=== PATIENT | male | born 1965 | race African-American/Black ===

== ENCOUNTER 2024-06-18 09:28 | Inpatient (IN) | payer MEDICAID, OTHER ==
[~2024-06-18] VITALS: Ht 177.8 cm; Wt 147.6 kg
[2024-06-18 09:59] LABS: White Blood Cell 4.2 10^3/uL (4.4-10.8)
[2024-06-18 10:01] LABS: Hematocrit 42.2 % (41.0-53.0); Hemoglobin 14.1 g/dL (13.5-17.5); Mean Corpuscular Hemoglobin 34.8 pg (28.0-32.0); Mean Corpuscular Hgb Conc. 33.3 g/dL (32.0-36.0); Mean Corpuscular Volume 104.5 fL (80.0-100.0); Platelet Count (auto) 174 10^3/uL (140-450); Red Blood Cells 4.04 10^6/uL (4.5-5.90); Red Cell Distribution Width 15.2 % (11.8-14.3)
--- NOTE | 2024-06-18 10:03 | ED.PDOC ---
HPI Comments 58-year-old male with PMHx Pulmonary Emboli presents with a chief complaint of chest pain x onset 0845 this morning. Patient reports that his chest pain is localized to his sternal region, radiating to his lower jaw. Patient reports that he is on blood thinners for pulmonary emboli. Patient reports that he also feels very hot; patient is visibly sweating upon evaluation. Patient denies any drug or alcohol use this morning. Chief Complaint: Chest Pain Time Seen by MD: 09:47 Reviewed Notes: Medications, Allergies Allergies: Coded Allergies: Ibuprofen (Verified Allergy, Unknown, 06/18/24) Penicillins (Verified Allergy, Unknown, 06/18/24) Information Source: Patient Mode of Arrival: Ambulatory Severity: Moderate Timing: Hours Duration: Since onset Prehospital treatment: None Location: Substernal Radiation: Jaw Quality: Sharp Onset: With Light Exertion Cardiac Risk Factors: Other (PULMONARY EMBOLI) PE Risk Factors: None History of: None Past Medical History PAST MEDICAL HISTORY: PE Surgical History: Denies all surgeries Family History Family History: Reviewed,noncontributory to illness Social History Smoker: Non-Smoker Alcohol: Denies ETOH Use Drugs: Denies Drug Use Lives In: Home Constitutional: reports: diaphoresis; denies: chills, fatigue, fever, malaise, sweats, weakness, others EENTM: denies: blurred vision, double vision, ear bleeding, ear discharge, ear drainage, ear pain, ear ringing, eye pain, eye redness, hearing loss, mouth pain, mouth swelling, nasal discharge, nose bleeding, nose congestion, nose pain, photophobia, tearing, throat pain, throat swelling, voice changes, others Respiratory: reports: shortness of breath; denies: cough, hemoptysis, orthopnea, SOB at rest, SOB with excertion, stridor, wheezing, others Cardiovascular: reports: chest pain; denies: dizzy spells, diaphoresis, Dyspnea on exertion, edema, irregular heart beat, left arm pain, lightheadedness, palpitations, PND, syncope, others Gastrointestinal: denies: abdomen distended, abdominal pain, blood streaked bowels, constipated, diarrhea, dysphagia, difficulty swallowing, hematemesis, melena, nausea, poor appetite, poor fluid intake, rectal bleeding, rectal pain, vomiting, others Genitourinary: denies: burning, dysuria, flank pain, frequency, hematuria, incontinence, penile discharge, penile sore, pain, testicle pain, testicle swelling, urgency, others Neurological: reports: tingling; denies: dizziness, fainting, headache, left sided numbness, left sided weakness, numbness, paresthesia, pre-existing deficit, right sided numbness, right sided weakness, seizure, speech problems, tremors, weakness, others Musculoskeletal: denies: back pain, gout, joint pain, joint swelling, muscle pain, muscle stiffness, neck pain, others Integumetry: denies: bruises, change in color, change in hair/nails, dryness, laceration, lesions, lumps, rash, wounds, others Allergic/Immunocompromised: denies: Difficulty Healing, Frequent Infections, Hives, Itching, others Hematologic/Lymphatic: denies: anemia, blood clots, easy bleeding, easy bruising, swollen glands, others Endocrine: denies: excessive hunger, excessive sweating, excessive thirst, excessive urination, flushing, intolerance to cold, intolerance to heat, unexplained weight gain, unexplained weight loss, others Psychiatric: denies: anxiety, bipolar disorder, depression, hopeless, panic disorder, schizophrenia, sleepless, suicidal, others All Other Systems: Reviewed and Negative Physical Exam General Appearance: Moderate Distress, Obese HEENT: Normal ENT Inspection, Pharynx Normal, TMs Normal Neck: Full Range of Motion, Non-Tender, Normal, Normal Inspection Respiratory: Chest Non-Tender, Lungs Clear, No Accessory Muscle Use, No Respiratory Distress, Normal Breath Sounds Cardiovascular: No Edema, No JVD, No Murmur, No Gallop, Normal Peripheral Pulses, Other (STERNAL CHEST PAIN) Breast Exam: Deferred Gastrointestinal: No Organomegaly, Non Tender, No Pulsatile Mass, Normal Bowel Sounds, Soft Genitalia: Deferred Pelvic: Deferred Rectal: Deferred Extremities: No calf tenderness, Normal capillary refill, Normal inspection, Normal range of motion, Non-tender, No pedal edema Musculoskeletal : Apperance: Normal Neurologic: Alert, 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 Was a procedure done?: No CP Differential Dx Differential Diagnosis: Anxiety / Panic Attack, Electrolyte Disorder, Heart Failure, Hypoxia, MAT, NE, PAC's, Pulmonary Embolus Differential Diagnosis: HTN Essential, HTN Accelerated Differential Diagnosis: Gastritis, Myocardial Infarction, Pericarditis X-Ray, Labs, Meds, VS Vital Signs Date Time Temp Pulse Resp B/P (MAP) Pulse Ox O2 Delivery O2 Flow Rate FiO2 06/18/24 12:25 67 06/18/24 12:00 68 20 131/88 (102) 95 06/18/24 11:07 67 15 131/91 06/18/24 10:38 71 14 140/85 06/18/24 10:28 67 06/18/24 10:23 98.6 71 20 149/85 (106) 96 98.6 06/18/24 10:20 96 Room Air* 0 21 06/18/24 10:10 72 20 96 Room Air 06/18/24 10:10 98.4 72 20 133/87 (102) 96 98.4 06/18/24 09:28 97.7 74 20 164/99 (120) 96 Lab Test 06/18/24 12:46 06/18/24 10:41 06/18/24 09:40 Range/Units Sodium Level Pending Potassium Level Pending Chloride Level Pending Carbon Dioxide Level Pending Anion Gap Pending Blood Urea Nitrogen Pending Creatinine Pending Glomerular Filtration Rate Calc Pending BUN/Creatinine Ratio Pending Serum Glucose Pending Calcium Level Pending Troponin I High Sensitivity Pending < 3 L < 3 L </=54 ng/L White Blood Count 4.2 L 4.4-10.8 10^3/uL Red Blood Count 4.04 L 4.5-5.90 10^6/uL Hemoglobin 14.1 13.5-17.5 g/dL Hematocrit 42.2 41.0-53.0 % Mean Corpuscular Volume 104.5 H 80.0-100.0 fL Mean Corpuscular Hemoglobin 34.8 H 28.0-32.0 pg Mean Corpuscular Hemoglobin Concent 33.3 32.0-36.0 g/dL Red Cell Distribution Width 15.2 H 11.8-14.3 % Platelet Count 174 140-450 10^3/uL Mean Platelet Volume 7.8 6.9-10.8 fL Neutrophils (%) (Auto) 37.0-80.0 % Lymphocytes (%) (Auto) 10.0-50.0 % Monocytes (%) (Auto) 0.0-12.0 % Basophils (%) (Auto) 0.0-2.0 % Neutrophils # (Auto) 1.6-8.6 10 ^3/uL Lymphocytes # (Auto) 0.4-5.4 10 ^3/uL Monocytes # (Auto) 0-1.3 10 ^3/uL Differential Total Cells Counted Pending Neutrophils % (Manual) Pending Band Neutrophils % (Manual) Pending Lymphocytes % (Manual) Pending Monocytes % (Manual) Pending Eosinophils % (Manual) Pending Basophils % (Manual) Pending Metamyelocytes % (manual) Pending Myelocytes % (Manual) Pending Promyelocytes % (Manual) Pending Blast Cells % (Manual) Pending Reactive Lymphocytes Pending Platelet Estimate Pending D-Dimer, Quantitative 0.22 0.0-0.49 mg/L FEU B-Type Natriuretic Peptide 28.59 0-100 pg/mL Current Medications Medications (Trade) Dose Ordered Sig/Carlos Route Start Time Stop Time Status Last Admin Ondansetron HCl (Zofran) 4 mg ONCE ONCE IV 06/18/24 10:30 06/18/24 10:31 DC 06/18/24 10:38 Morphine Sulfate 4 mg ONCE ONCE IV 06/18/24 10:30 06/18/24 10:31 DC 06/18/24 10:38 Time of 1ST Reevaluation: 10:17 Reevaluation 1ST: Unchanged Patient Education/Counseling: Diagnosis, Treatment, Prognosis Family Education/Counseling: Diagnosis, Treatment, Prognosis Departure 1 Departure Time of Disposition: 12:51 (Patient presented with chest pain that was concerning for possible STEMI, ACS, PE, Pneumonia, Muscle Strain, COPD, Dissection. Data: 1. I ordered and reviewed the result of at least 3 labs including a CBC, BMP, and Troponin. 2. I independently interpreted the following tests: EKG which shows sinus arrhythmia and Chest X-ray which shows benign chest.Risk:This patient has a high risk of morbidity due to further diagnostic testing or treatment and may suffer from an acute cardiac or respiratory disorder. Workup reveals concern for ACS and patient should be admitted for further workup and possible expert consultation. ) Impression: Primary Impression: Acute chest pain Additional Impression: Shortness of breath Disposition: 09 ADMITTED INPATIENT Admit to: Med Surg Condition: Serious Critical Care Note Critical Care Time?: Yes Critical care comment: Acute chest pain Authorized and Performed by: Gerson Brooks MD Total critical care time: Approximately 38 minutes Due to a high probability of clinically significant, life threatening deterioration, the patient required my highest level of preparedness to intervene emergently and I personally spent this critical care time directly and personally managing the patient. This critical care time included obtaining a history; examining the patient; pulse oximetry; ordering and review of studies; arranging urgent treatment with development of a management plan; evaluation of patient's response to treatment; frequent reassessment; and, discussions with other providers. This critical care time was performed to assess and manage the high probability of imminent, life-threatening deterioration that could result in multi-organ failure. It was exclusive of separately billable procedures and treating other patients and teaching time. Please see my other sections and the rest of the note for further information on patient assessment and treatment. Stability Stability form required: No Heart Score Heart Score: Heart Score Response (Comments) Value History Moderate Suspicious 1 EKG Repolarization Disturb 1 Age 45-64 1 Risk Factors >3 or Hx ASHD 2 Troponin 1-2 x's Normal limit 1 Total 6 I personally scribed for GERSON BROOKS MD ([email or web address]) on 06/18/24 at 10:03. Electronically submitted by Aron Mazariegos ([email or web address]). GERSON BROOKS MD Jun 18, 2024 10:03
[2024-06-18 10:11] LABS: Band Neutrophils % (manual) 0; Basophils % (manual) 0 (0.0-2.0); Blast Cells 0; Metamyelocytes % 0; Myelocytes % 0; Promyelocytes % 0; Reactive Lymphocytes 0
--- NOTE | 2024-06-18 10:15 | DVH ---
EXAM: XY CHEST TWO VIEWS ROUTINE CLINICAL HISTORY: CP SOB COMPARISON: None TECHNIQUE: Frontal and lateral view of the chest was obtained FINDINGS: Lines and Tubes: None Lungs: No focal consolidation. Pleura: No effusion. No pneumothorax. Cardiomediastinal contours: Unremarkable Bones: No acute osseous abnormality. IMPRESSION: No acute cardiopulmonary disease.
[2024-06-18 10:20] VITALS: O2SAT 96
[2024-06-18] MEDS: ONDANSETRON HCL 4 MG/2 ML VIAL IV ONE (10:38)
[2024-06-18] MEDS: MORPHINE SULFATE 4 MG/ML SYR/VIAL IV ONE (10:38)
[2024-06-18 14:04] LABS: Chloride 106 mmol/L (98-107); Potassium 4.7 mmol/L (3.5-5.1); Sodium 139 mmol/L (136-145)
[2024-06-18 14:05] LABS: Calcium 9.3 mg/dL (8.7-10.4); Carbon Dioxide 25 mmol/L (20-31)
[2024-06-18 14:06] LABS: Eosinophils % (manual) 4 (0-7); Lymphocytes % (manual) 59 (10.0-50.0); Monocytes % (manual) 7 (0-12)
[2024-06-18 14:07] LABS: Platelet Estimate Adequate
[2024-06-18 14:08] LABS: Anion Gap 8 (5-15)
[2024-06-18 14:10] LABS: BUN/Creatinine Ratio 8.5 (10.0-20.0); Glucose 97 mg/dL (74-106)
[2024-06-18 14:20] LABS: Blood Urea Nitrogen 8 mg/dL (9-23)
--- NOTE | 2024-06-18 14:55 | DVHHP2 ---
Admitting Diagnosis: chest pain History of Present Illness 58-year-old male with PMHx Pulmonary Emboli presents with a chief complaint of chest pain x onset 0845 this morning. Patient reports that his chest pain is localized to his sternal region, radiating to his lower jaw. Patient reports that he is on blood thinners for pulmonary emboli. Patient reports that he also feels very hot; patient is visibly sweating upon evaluation. Patient denies any drug or alcohol use this morning. PAST MEDICAL HISTORY: PE Surgical History: Denies all surgeries Family History: Reviewed,noncontributory to illness Smoker: Non-Smoker Alcohol: Denies ETOH Use Drugs: Denies Drug Use Lives In: Home Allergies: Coded Allergies: Ibuprofen (Verified Allergy, Unknown, 06/18/24) Penicillins (Verified Allergy, Unknown, 06/18/24) Vital Signs Vital Signs Date Time Temp Pulse Resp B/P (MAP) Pulse Ox O2 Delivery O2 Flow Rate FiO2 06/18/24 14:17 97.7 68 20 130/81 (97) 95 97.7 06/18/24 10:20 Room Air* 0 21 Physical Exam Generally-58 years old male, morbidly obese, lying in bed. Mild distress HEENT-atraumatic normocephalic Heart-regular rate and rhythm Lungs clear to auscultate Abdomen soft nontender nondistended Musculoskeletal-no edema cyanosis Neuro-AO x3, no focal deficits Results Labs Test 06/18/24 12:46 06/18/24 09:40 Range/Units Sodium Level 139 136-145 mmol/L Potassium Level 4.7 3.5-5.1 mmol/L Chloride Level 106 98-107 mmol/L Carbon Dioxide Level 25 20-31 mmol/L Anion Gap 8 5-15 Blood Urea Nitrogen 8 L 9-23 mg/dL Creatinine 0.94 0.700-1.30 mg/dL Glomerular Filtration Rate Calc 95 >90 mL/min BUN/Creatinine Ratio 8.5 L 10.0-20.0 Serum Glucose 97 74-106 mg/dL Calcium Level 9.3 8.7-10.4 mg/dL Troponin I High Sensitivity < 3 L </=54 ng/L White Blood Count 4.2 L 4.4-10.8 10^3/uL Red Blood Count 4.04 L 4.5-5.90 10^6/uL Hemoglobin 14.1 13.5-17.5 g/dL Hematocrit 42.2 41.0-53.0 % Mean Corpuscular Volume 104.5 H 80.0-100.0 fL Mean Corpuscular Hemoglobin 34.8 H 28.0-32.0 pg Mean Corpuscular Hemoglobin Concent 33.3 32.0-36.0 g/dL Red Cell Distribution Width 15.2 H 11.8-14.3 % Platelet Count 174 140-450 10^3/uL Mean Platelet Volume 7.8 6.9-10.8 fL Neutrophils (%) (Auto) 37.0-80.0 % Lymphocytes (%) (Auto) 10.0-50.0 % Monocytes (%) (Auto) 0.0-12.0 % Basophils (%) (Auto) 0.0-2.0 % Neutrophils # (Auto) 1.6-8.6 10 ^3/uL Lymphocytes # (Auto) 0.4-5.4 10 ^3/uL Monocytes # (Auto) 0-1.3 10 ^3/uL Differential Total Cells Counted 100.0 100 Neutrophils % (Manual) 30 L 37.0-80.0 Band Neutrophils % (Manual) 0 Lymphocytes % (Manual) 59 H 10.0-50.0 Monocytes % (Manual) 7 0-12 Eosinophils % (Manual) 4 0-7 Basophils % (Manual) 0 0.0-2.0 Metamyelocytes % (manual) 0 Myelocytes % (Manual) 0 Promyelocytes % (Manual) 0 Blast Cells % (Manual) 0 Reactive Lymphocytes 0 Platelet Estimate Adequate D-Dimer, Quantitative 0.22 0.0-0.49 mg/L FEU B-Type Natriuretic Peptide 28.59 0-100 pg/mL Primary Diagnosis Chest pain rule out ACS Plan Patient says still has intermittent chest pain Troponin negative x3 EKG shows normal sinus rhythm Check echo of the heart Cardiology consult for chest pain rule out ACS Cardiac diet Monitor for pain admit to tele Full code PPI for GI prophylaxis Lovenox for DVT prophylaxis Plan discussed with: Patient Problems List: (1) Acute chest pain Status: Acute Date of Service: Jun 18, 2024 Billing Provider: IVELISSE TELLO MD Common Visit Codes: [id number] INP/OBS CARE (HIGH) IVELISSE TELLO MD Jun 18, 2024 14:55
[2024-06-18] MEDS ORDERED: NITROGLYCERIN 0.4 MG SL TAB SL PRN (15:15)
[2024-06-18] MEDS ORDERED: DOCUSATE SOD 100 MG CAP PO PRN (15:15)
[2024-06-18] MEDS ORDERED: MORPHINE SULFATE INJ 2 MG/ml SYRG IV PRN (15:15)
[2024-06-18] MEDS: HYDROmorphone HCL 2 MG/ML VL/or syr IV PRN (16:09)
--- NOTE | 2024-06-18 17:12 | DVHINCON2 ---
Date Seen: Jun 18, 2024 Referring Physician MD Gil Reason for Consultation Chest pain History of Present Illness This is a 58-year-old male patient who presents to the emergency room with chief complaint of chest pain. The patient reports that the pain began today at 9:00 a.m. while he was getting ready for work. He describes the pain as unprovoked, constant, sharp in nature, midsternal with radiation down to the left side of his chest as well as down his left hand and to his jaw. Initial twelve lead electrocardiogram reveals a low voltage normal sinus rhythm with nonspecific ST segment changes to inferior leads. Initial serial troponin levels have been negative. Significant past medical history includes congestive heart failure, hypertension, dyslipidemia, pulmonary embolism (on Xarelto), history of tobacco use and morbid obesity. The patient reports a stress test in 2021 which was normal. 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 Past Medical History Past medical history reviewed. No other significant than mentioned above. Past Surgical History Denies Family History Family history reviewed. Social History Patient has a five pack-year history, quit smoking approximately five years ago Denies any alcohol use Denies any illicit drug use Allergies: Coded Allergies: Ibuprofen (Verified Allergy, Unknown, 06/18/24) Penicillins (Verified Allergy, Unknown, 06/18/24) Home Meds Home medications reviewed. Current Medications Current Medications Medications (Trade) Dose Ordered Sig/Carlos Route PRN Reason Start Time Stop Time Status Last Admin Sodium Chloride (Saline Lock Ns) 10 ml Q8HR IV 06/18/24 22:00 Docusate Sodium (Colace Capsule) 100 mg BIDPRN PRN PO FOR CONSTIPATION 06/18/24 15:15 Acetaminophen (Tylenol Tablet) 650 mg Q6HP PRN PO PAIN SCALE 1-3 OR TEMP>100.4 06/18/24 15:15 Acetaminophen/ Hydrocodone Bitart (Supai 5/325MG Tab) 1 tab Q4HP PRN PO MODERATE PAIN (4-6 PAIN SCALE) 06/18/24 15:15 Hydromorphone HCl (Dilaudid Injection) 0.5 mg Q4HP PRN IV SEVERE PAIN (7-10 PAIN SCALE) 06/18/24 15:15 06/18/24 16:09 Ondansetron HCl (Zofran) 4 mg Q4HP PRN IV NAUSEA / VOMITING 06/18/24 15:15 Enoxaparin Sodium (Lovenox) 40 mg DAILY SC 06/19/24 10:00 Nitroglycerin (Ntrostat Sublingual) 0.4 mg Q5MINP PRN SL FOR CHEST PAIN 06/18/24 15:15 Morphine Sulfate 2 mg Q30M PRN IV FOR CHEST PAIN 06/18/24 15:15 Metoprolol Succinate (Toprol Xl) 100 mg DAILY PO 06/19/24 10:00 Review of Systems Constitutional: No symptom reported Ears, Nose, & Throat: No symptom reported Eyes: No symptom reported Neurological: No symptoms reported Pulmonary/Respiratory: Shortness of breath Cardiovascular: Chest pain Gastrointestinal: No symptom reported Genitourinary: No symptom reported Musculoskeletal: No symptom reported Skin: No symptom reported Psychiatric: No symptom reported Endocrine: No symptom reported Hematologic/Lymphatic: No symptom reported Vital Signs Vital Signs Date Time Temp Pulse Resp B/P (MAP) Pulse Ox O2 Delivery O2 Flow Rate FiO2 06/18/24 16:34 66 14 135/95 06/18/24 16:04 95 06/18/24 14:17 97.7 97.7 06/18/24 10:20 Room Air* 0 21 Physical Exam General Appearance: Cooperative. Morbidly obese Pulmonary/Respiratory: Clear, bilateral breaths sounds. Cardiovascular/Chest: Regular rate and rhythm. Peripheral Pulses: 2+ Radial (R). 2+ Radial (L). 2+ Pedal (R). 2+ Pedal (L) Abdominal Exam: Normal bowel sounds. Ankle Exam: Negative ankle edema Lower extremities: Negative lower extremity edema Neuro/Mental Status: A/OX4, coherent. Thoughts/Psych: Normal thought pattern. Appropriate mood and affect. Good judgment and insight. Appearance: No acute distress. Skin Exam: Normal inspection. Normal color. Warm and dry. Labs/Diagnostic Data Labs Test 06/18/24 12:46 06/18/24 09:40 Range/Units Sodium Level 139 136-145 mmol/L Potassium Level 4.7 3.5-5.1 mmol/L Chloride Level 106 98-107 mmol/L Carbon Dioxide Level 25 20-31 mmol/L Anion Gap 8 5-15 Blood Urea Nitrogen 8 L 9-23 mg/dL Creatinine 0.94 0.700-1.30 mg/dL Glomerular Filtration Rate Calc 95 >90 mL/min BUN/Creatinine Ratio 8.5 L 10.0-20.0 Serum Glucose 97 74-106 mg/dL Calcium Level 9.3 8.7-10.4 mg/dL Troponin I High Sensitivity < 3 L </=54 ng/L White Blood Count 4.2 L 4.4-10.8 10^3/uL Red Blood Count 4.04 L 4.5-5.90 10^6/uL Hemoglobin 14.1 13.5-17.5 g/dL Hematocrit 42.2 41.0-53.0 % Mean Corpuscular Volume 104.5 H 80.0-100.0 fL Mean Corpuscular Hemoglobin 34.8 H 28.0-32.0 pg Mean Corpuscular Hemoglobin Concent 33.3 32.0-36.0 g/dL Red Cell Distribution Width 15.2 H 11.8-14.3 % Platelet Count 174 140-450 10^3/uL Mean Platelet Volume 7.8 6.9-10.8 fL Neutrophils (%) (Auto) 37.0-80.0 % Lymphocytes (%) (Auto) 10.0-50.0 % Monocytes (%) (Auto) 0.0-12.0 % Basophils (%) (Auto) 0.0-2.0 % Neutrophils # (Auto) 1.6-8.6 10 ^3/uL Lymphocytes # (Auto) 0.4-5.4 10 ^3/uL Monocytes # (Auto) 0-1.3 10 ^3/uL Differential Total Cells Counted 100.0 100 Neutrophils % (Manual) 30 L 37.0-80.0 Band Neutrophils % (Manual) 0 Lymphocytes % (Manual) 59 H 10.0-50.0 Monocytes % (Manual) 7 0-12 Eosinophils % (Manual) 4 0-7 Basophils % (Manual) 0 0.0-2.0 Metamyelocytes % (manual) 0 Myelocytes % (Manual) 0 Promyelocytes % (Manual) 0 Blast Cells % (Manual) 0 Reactive Lymphocytes 0 Platelet Estimate Adequate D-Dimer, Quantitative 0.22 0.0-0.49 mg/L FEU B-Type Natriuretic Peptide 28.59 0-100 pg/mL Assessment Chest pain, likely in the setting of hypertensive urgency Rule out structural heart disease Dyslipidemia History pulmonary embolism on Xarelto therapy Tobacco use Morbid obesity Plan/Recommendation We will proceed with the following plan/recommendations (Dr. Webb): * Transthoracic echocardiogram to evaluate cardiac function * Chest pain protocol * HEART score: 3 points * Blood pressure control * Therapeutic Lovenox, transition back to Pradaxa when appropriate * Cardiac surveillance * Labs: UDS, lipid panel Case discussed with . Thank you for allowing us to care for this patient. Please call with any questions or concerns. Critical care time spent: 42 minutes This medical document was created using an electronic medical record system with voice recognition software and computerized dictation system. Although this document has been carefully reviewed, there might still be some phonetic and typographical errors. Occasional wrong-word or ``sound-alike substitutions may have occurred due to the inherent limitations of voice recognition software. These areas are purely typographical due to imperfections of the software programs and do not reflect any compromise in the patient's medical care. Please read the chart carefully and recognize, using context, where these substitutions have occurred. Plan discussed with: Patient NYHA Physical activity limitations: NA Date of Service: Jun 18, 2024 Billing Provider: REGINA MONTES Cardiology Common Codes: [id number] INP/OBS CARE (High) Cardiology Consultation Codes: [id number] CONSULT <45MIN REGINA MONTES Jun 18, 2024 17:12
[2024-06-18] MEDS: IOHEXOL 350 MG/ML 100ML IJ ONE (17:41)
[2024-06-18 17:43] LABS: Magnesium 1.7 mg/dL (1.6-2.6)
[2024-06-18 18:25] LABS: Urine Bacteria None Seen /hpf (None Seen)
--- NOTE | 2024-06-18 18:27 | ECG ---
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
[2024-06-18 18:34] LABS: Urine Blood Negative /uL (Negative); Urine Clarity Clear (Clear); Urine Color Dark-Yellow (Yellow); Urine Mucus FEW (None Seen); Urine Protein, UAD Negative (Negative); Urine Specific Gravity 1.025 (1.001-1.035); Urine Squamous Epithelial Cell None Seen /hpf (<5); Urine Urobilinogen Normal (Negative); Urine WBC 1 /HPF (0-3)
--- NOTE | 2024-06-18 18:37 | DVH ---
EXAM: CT CT ANGIO CHEST CONTRAST History: rule out PE Comparison Study: None available TECHNIQUE: A digital assistant business manager image was obtained. During the uneventful, intravenous administration of c ontrast material, multislice data acquisition was obtained through the chest. 3-D postprocessing is performed by technologist including MIP imaging Radiation Dose : CTDI vol 28.67 mGy, DLP 1214.36 mGy*cm. Findings: Lungs: The lungs are clear. Pleura: Unremarkable Heart/Great vessels: No cardiomegaly or pericardial effusion. No pulmonary embolism, aneurysm, or dis section. Mediastinum: Unremarkable Soft tissues/Bones: Moderate multilevel degenerative changes of the thoracic spine The partially visualized upper abdomen is within normal limits. Impression: 1. No evidence of a pulmonary embolism, aneurysm, or dissection.
[2024-06-18 18:41] LABS: Cannabinoid Screen, Urine Pos (NEGATIVE)
[2024-06-18 18:42] LABS: Amphetamine Screen, Urine Neg (NEGATIVE); Barbiturate Scree,Urine Neg (NEGATIVE); Benzodiazephine Screen, Urine Neg (NEGATIVE); Cocaine Screen, Urine Neg (NEGATIVE); Opiate Scree,Urine Pos (NEGATIVE); Phencyclidine Screen, Urine Neg (NEGATIVE)
--- NOTE | 2024-06-18 18:51 | ECG ---
[facility] Test Date: 2024-06-18 Test Time: 12:25:14 Pat Name: ALVARO DUVALL Department: er Room: 0272T Gender: M Rolling Attendant: ortega : 1965 Requested By: GERSON COLLAZO Order Number: [id number] Reading MD: Oliver Webb Measurements Intervals [place] Rate: 67 P: 52 [place]: 152 QRS: 8 QRSD: 105 T: -9 QT: 407 QTc: 430 Interpretive Statements Sinus rhythm Low voltage, extremity and precordial leads Electronically Signed On 06-21-2024 18:57:33 PDT by Oliver Webb Please click the below link to view image of tracing.
[2024-06-18 19:53] VITALS: O2SAT 94
[2024-06-18] MEDS: ONDANSETRON HCL 4 MG/2 ML VIAL IV PRN (21:24)
[2024-06-18] MEDS: ENOXAPARIN SOD 100 MG/1 ML SYRINGE SC SCH (21:24)
[2024-06-18] MEDS: HYDROcodone-ACET 5/325MG TAB PO PRN (21:50)
[2024-06-18] MEDS: ACETAMINOPHEN 325 MG TAB PO PRN (21:50)
[2024-06-18] MEDS: SODIUM CHLOR 0.9% PF (SALINE LOCK) 10ML VIAL/SYR IV SCH (22:00)
[2024-06-18 23:57] VITALS: BP 139/97; PULSE 60; PULSE 68; RESP 18; TEMP 97.9; O2SAT 96
[2024-06-19] VITALS (8 sets, daily range): BP systolic 116–150; BP diastolic 67–97; PULSE 61–74; RESP 16–20; TEMP 97.6–98.1; O2SAT 96–100
[2024-06-19] MEDS ORDERED: HYDR-4072 PO (02:28)
[2024-06-19] MEDS ORDERED: IRBE150T49 PO (02:28)
[2024-06-19] MEDS ORDERED: RIV15T PO (02:28)
[2024-06-19] MEDS ORDERED: METO1TAB9 PO (02:28)
[2024-06-19] MEDS ORDERED: ALBU108A5 INH (02:28)
[2024-06-19 07:10] LABS: Basophils # (auto) 0 10 ^3/uL (0-0.2); Basophils % (auto) 0.8 % (0.0-2.0); Eosinophils # (auto) 0.1 10 ^3/uL (0-0.8); Eosinophils % (auto) 3.3 % (0.0-7.0); Hematocrit 43.3 % (41.0-53.0); Hemoglobin 14.4 g/dL (13.5-17.5); Lymphocytes # (auto) 1.6 10 ^3/uL (0.4-5.4); Lymphocytes % (auto) 43.2 % (10.0-50.0); Mean Corpuscular Hemoglobin 35.1 pg (28.0-32.0); Mean Corpuscular Hgb Conc. 33.3 g/dL (32.0-36.0); Mean Corpuscular Volume 105.4 fL (80.0-100.0); Monocytes # (auto) 0.4 10 ^3/uL (0-1.3); Neutrophils # (auto) 1.6 10 ^3/uL (1.6-8.6); Neutrophils % (auto) 42.7 % (37.0-80.0); Nucleated Red Blood Cells % 0.1 %; Platelet Count (auto) 164 10^3/uL (140-450); Red Blood Cells 4.11 10^6/uL (4.5-5.90); Red Cell Distribution Width 15.2 % (11.8-14.3); White Blood Cell 3.7 10^3/uL (4.4-10.8)
[2024-06-19 07:32] LABS: Alanine Aminotransferase 22 U/L (7-40); Alkaline Phosphatase 89 U/L (46-116); Anion Gap 9 (5-15); Aspartate Aminotransferase 27 U/L (13-40); BUN/Creatinine Ratio 9.3 (10.0-20.0); Blood Urea Nitrogen 9 mg/dL (9-23); Calcium 9.7 mg/dL (8.7-10.4); Carbon Dioxide 26 mmol/L (20-31); Chloride 104 mmol/L (98-107); Potassium 3.5 mmol/L (3.5-5.1); Sodium 139 mmol/L (136-145); Total Protein 7.3 g/dL (5.7-8.2)
[2024-06-19 07:33] LABS: Albumin 4.2 g/dL (3.2-4.8); Glucose 116 mg/dL (74-106)
--- NOTE | 2024-06-19 08:46 | ECG ---
[facility] Test Date: 2024-06-18 Test Time: 10:28:50 Pat Name: ALVARO DUVALL Department: er Room: [facility]2T B Gender: M Life Claims Examiner: ortega : 1965 Requested By: GERSON COLLAZO Order Number: [id number] Reading MD: Oliver Webb Measurements Intervals [place] Rate: 67 P: 59 RI: 146 QRS: 2 QRSD: 109 T: -15 QT: 385 QTc: 407 Interpretive Statements Sinus rhythm Low voltage,througout Minimal ST depression, inferior leads Electronically Signed On 06-21-2024 18:54:51 PDT by Oliver Webb Please click the below link to view image of tracing.
[2024-06-19] MEDS: METOPROLOL SUCCINATE XL 50 MG TAB PO SCH (09:22)
[2024-06-19] MEDS ORDERED: ENOXAPARIN SOD 40 MG/0.4 ML SYRINGE SC SCH (10:00)
--- NOTE | 2024-06-19 13:01 | DVHPNRES ---
Progress Note Date Seen: Jun 19, 2024 Resident Creating Document: ROSAMARIA ANNA RESIDENT Medical Necessity Reason Pt with a Central, PICC or Fol: No Subjective Review of Systems This is a 58-year-old male patient with past medical history of CHF, hypertension, dyslipidemia, pulmonary embolism on Xarelto, morbid obesity, nicotine dependence presented to the ED with a chief complaint of chest pain since 9 mm in the morning prior to this admission. he describes the pain as unprovoked, constant, sharp in nature, midsternal with radiation down to the left side of his chest as well as down his left hand and left jaw. the admission also mentioned multiple hospital and admission in last few years due to the chest pain but never had any invasive procedure before. 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 Initial twelve lead electrocardiogram reveals a low voltage normal sinus rhythm with nonspecific ST segment changes to inferior leads. Initial serial troponin levels have been negative. Patient was seen and examined on the bedside. He is alert oriented x3. Complaint of upper back pain and mentioned relief of chest pain. No other active complaint. Constitutional: No: Fever, Chills, Sweats, Weakness, Malaise, Other Eyes: No: Pain, Vision change, Conjunctivae inflammation, Eyelid inflammation, Other, Redness ENT: No: Ear pain, Ear discharge, Nose pain, Nose discharge, Nose congestion, Mouth pain, Mouth swelling, Throat pain, Throat swelling, Other Respiratory: Shortness of breath, improving No: Cough, Dry,Wheezing, Hemoptysis, Pleuritic Pain, Sputum, Wheezing, Other Cardiovascular: No: Chest Pain, Palpitations, Orthopnea, Paroxysmal Noc. Dyspnea, Edema, Lt Headedness, Other Gastrointestinal: No: Nausea, Vomiting, Abdominal Pain, Diarrhea, Constipation, Melena, Hematochezia, Other Musculoskeletal: No: other, neck pain, shoulder pain, arm pain, back pain, hand pain, leg pain, foot pain Neurological:; No: Weakness, Numbness, Incoordination, Change in speech, Confusion, Seizures Objective vital signs Vital Sign Date Time Temp Pulse Resp B/P (MAP) Pulse Ox O2 Delivery O2 Flow Rate FiO2 06/19/24 12:39 97.9 74 16 129/81 (97) 98 97.9 06/19/24 08:00 Room Air* 0 21 Total Intake and Output 06/18/24 06/18/24 06/19/24 15:00 23:00 07:00 Intake Total 100 ml Balance 100 ml medications Current Medications Medications Dose Ordered Sig/Carlos Route Start Time Stop Time Status Last Admin Dose Admin Sodium Chloride 10 ml Q8HR IV 06/18/24 22:00 06/19/24 06:36 10 ML Docusate Sodium 100 mg BIDPRN PRN PO 06/18/24 15:15 Acetaminophen 650 mg Q6HP PRN PO 06/18/24 15:15 06/18/24 21:50 650 MG Acetaminophen/ Hydrocodone Bitart 1 tab Q4HP PRN PO 06/18/24 15:15 06/18/24 21:50 1 TAB Hydromorphone HCl 0.5 mg Q4HP PRN IV 06/18/24 15:15 06/19/24 09:23 0.5 MG Ondansetron HCl 4 mg Q4HP PRN IV 06/18/24 15:15 06/18/24 22:45 4 MG Nitroglycerin 0.4 mg Q5MINP PRN SL 06/18/24 15:15 Morphine Sulfate 2 mg Q30M PRN IV 06/18/24 15:15 Metoprolol Succinate 100 mg DAILY PO 06/19/24 10:00 06/19/24 09:22 100 MG Enoxaparin Sodium 140 mg Q12HR SC 06/18/24 22:00 06/19/24 09:21 140 MG Examination Physical examination: General Appearance: Alert, Oriented X3, Cooperative, No acute distress HEENT: Atraumatic, PERRLA, EOMI, Mucous membrane moist/pink Respiratory: Clear to auscultation, Normal air movement Cardiovascular: Regular rate, Normal S1, Normal S2, No murmurs, no chest wall tenderness Abdominal: Normal bowel sounds, Soft, No tenderness, No hepatospenomegaly, No masses Extremities: No clubbing, No cyanosis, No edema, Normal pulses, No tenderness/swelling Skin: No rashes, No breakdown, No significant lesion Neuro: Normal gait, Normal speech, Strength at 5/5 X4 ext, Normal tone, Sensation intact, Cranial nerves 3-12 NL, Reflexes 2+ Psych/Mental Status: Mental status NL, Mood NL laboratory and microbiology Laboratory Tests 06/19/24 05:55 Test 06/19/24 05:55 Range/Units Serum Glucose 116 H 74-106 mg/dL Labs and/or images reviewed: Labs reviewed by me, Image(s) reviewed by me Problem List/Assessment/Plan Problem List/Assessment/Plan Assessment and plan: # Acute chest pain rule out ACS # Hypertensive urgency # Dyslipidemia - Initial EKG revealed sinus rhythm without any ST-T changes and troponin trends were unremarkable. - Pending ECHO study. - Cardiology on board - Patient refused further cardiac ischemia workup. - Metoprolol XL 100 mg po daily. - Atorvastatin 40 mg at HS. # History of pulmonary embolism and on xarelto - CT angio ruled out pulmonary embolism - Continue therapeutic Lovenox 1 mg/kg bid # Morbid obesity ( BMI 46.2 kg/m2) - Counseled patient regarding DASH diet, lifestyle modification and moderate intensity exercise . Goal of care discussed with the patient for more than 20 minutes full code Plan discussed with Dr. Rutherford Plan discussed with: Patient, Other Date of Service: Jun 19, 2024 Billing Provider: DONALDO FRANCIS MD Common Visit Codes: [id number] INP/OBS CARE(HIGH) ROSAMARIA ANNA RESIDENT Jun 19, 2024 13:01 DONALDO FRANCIS MD Jun 22, 2024 23:50
--- NOTE | 2024-06-19 14:47 | DVHPN2 ---
Consult Progress Note Subjective Other Systems: Patient in normal sinus rhythm on manager monitoring Objective vital signs Vital Sign Date Time Temp Pulse Resp B/P (MAP) Pulse Ox O2 Delivery O2 Flow Rate FiO2 06/19/24 14:11 74 16 129/81 06/19/24 12:39 97.9 98 97.9 06/19/24 08:00 Room Air* 0 21 Total Intake and Output 06/18/24 06/18/24 06/19/24 15:00 23:00 07:00 Intake Total 100 ml Balance 100 ml medications Current Medications Medications Dose Ordered Sig/Carlos Route Start Time Stop Time Status Last Admin Dose Admin Sodium Chloride 10 ml Q8HR IV 06/18/24 22:00 06/19/24 14:05 10 ML Docusate Sodium 100 mg BIDPRN PRN PO 06/18/24 15:15 Acetaminophen 650 mg Q6HP PRN PO 06/18/24 15:15 06/18/24 21:50 650 MG Acetaminophen/ Hydrocodone Bitart 1 tab Q4HP PRN PO 06/18/24 15:15 06/18/24 21:50 1 TAB Hydromorphone HCl 0.5 mg Q4HP PRN IV 06/18/24 15:15 06/19/24 14:11 0.5 MG Ondansetron HCl 4 mg Q4HP PRN IV 06/18/24 15:15 06/18/24 22:45 4 MG Nitroglycerin 0.4 mg Q5MINP PRN SL 06/18/24 15:15 Morphine Sulfate 2 mg Q30M PRN IV 06/18/24 15:15 Metoprolol Succinate 100 mg DAILY PO 06/19/24 10:00 06/19/24 09:22 100 MG Enoxaparin Sodium 140 mg Q12HR SC 06/18/24 22:00 06/19/24 09:21 140 MG Examination: GENERAL:Normal, LUNGS:Normal, CVS:Normal, NEURO:Normal laboratory and microbiology Laboratory Tests 06/19/24 05:55 Test 06/19/24 05:55 Range/Units Serum Glucose 116 H 74-106 mg/dL Problem List/Assessment/Plan Problem List/Assessment/Plan Chest pain, rule out coronary ischemia Hypertensive urgency Rule out structural heart disease Dyslipidemia History pulmonary embolism on Xarelto therapy Tobacco use Morbid obesity Plan/Recommendation (Dr. Webb): * Transthoracic echocardiogram to evaluate cardiac function * Chest pain protocol * HEART score: 3 points * Blood pressure control * Therapeutic Lovenox, transition back to Pradaxa when appropriate * Cardiac surveillance At the time of assessment, the patient reports he is still having intermittent chest pain. Patient is refusing any further cardiac workup at that time. Offered the patient a Cardiolite stress test. The patient states he does not want to have stress testing and would not like anything invasive either. In the setting of an unremarkable transthoracic echocardiogram, there is no further inpatient cardiac workup indicated at this time. Patient educated to let the primary team know if he is willing to undergo an inpatient Cardiolite stress test so we can get him scheduled. Patient verbalized understanding. Thank you for allowing us to care for this patient. Please call with any questions or concerns. This medical document was created using an electronic medical record system with voice recognition software and computerized dictation system. Although this document has been carefully reviewed, there might still be some phonetic and typographical errors. Occasional wrong-word or ``sound-alike substitutions may have occurred due to the inherent limitations of voice recognition software. These areas are purely typographical due to imperfections of the software programs and do not reflect any compromise in the patient's medical care. Please read the chart carefully and recognize, using context, where these substitutions have occurred. Plan discussed with: Patient Date of Service: Jun 19, 2024 Billing Provider: REGINA MONTES Common Visit Codes: [id number] INP/OBS CARE(HIGH) REGINA MONTES Jun 19, 2024 14:47
[2024-06-20] VITALS (7 sets, daily range): BP systolic 121–139; BP diastolic 82–91; PULSE 66–95; RESP 17–20; TEMP 97.7–98.1; O2SAT 98–100
[2024-06-20 05:25] LABS: Basophils # (auto) 0 10 ^3/uL (0-0.2); Eosinophils # (auto) 0.1 10 ^3/uL (0-0.8); Hemoglobin 13.6 g/dL (13.5-17.5); Lymphocytes # (auto) 1.7 10 ^3/uL (0.4-5.4); Monocytes # (auto) 0.4 10 ^3/uL (0-1.3); Neutrophils # (auto) 1.5 10 ^3/uL (1.6-8.6)
[2024-06-20 05:28] LABS: Basophils % (auto) 0.7 % (0.0-2.0); Eosinophils % (auto) 3.3 % (0.0-7.0); Hematocrit 39.9 % (41.0-53.0); Lymphocytes % (auto) 45.1 % (10.0-50.0); Mean Corpuscular Hemoglobin 35.8 pg (28.0-32.0); Mean Corpuscular Volume 105.3 fL (80.0-100.0); Monocytes % (auto) 10.8 % (0.0-12.0); Neutrophils % (auto) 40.1 % (37.0-80.0); Nucleated Red Blood Cells % 0.3 %; Platelet Count (auto) 147 10^3/uL (140-450); Red Blood Cells 3.79 10^6/uL (4.5-5.90); Red Cell Distribution Width 15.3 % (11.8-14.3); White Blood Cell 3.8 10^3/uL (4.4-10.8)
[2024-06-20 05:42] LABS: Alanine Aminotransferase 21 U/L (7-40); Alkaline Phosphatase 80 U/L (46-116); Anion Gap 6 (5-15); Aspartate Aminotransferase 28 U/L (13-40); BUN/Creatinine Ratio 9.3 (10.0-20.0); Calcium 9.2 mg/dL (8.7-10.4); Carbon Dioxide 27 mmol/L (20-31); Chloride 104 mmol/L (98-107); Glucose 96 mg/dL (74-106); Potassium 4.2 mmol/L (3.5-5.1); Sodium 137 mmol/L (136-145); Total Protein 6.7 g/dL (5.7-8.2)
[2024-06-20 05:43] LABS: Bilirubin, Total 0.9 mg/dL (0.2-1.0)
[2024-06-20 05:52] LABS: Blood Urea Nitrogen 8 mg/dL (9-23)
[2024-06-20] MEDS ORDERED: ATOR40TA52 PO (12:42)
[2024-06-20] MEDS ORDERED: ASPI81CH59 PO (12:43)
--- NOTE | 2024-06-20 15:35 | DVHDSRES ---
Discharge Summary Date of Admission Resident Creating Document: ROSAMARIA ANNA RESIDENT Jun 18, 2024 at 15:05 Date of Discharge: Jun 20, 2024 Admitting Diagnosis Acute chest pain rule out ACS Wounds: No wound was present Labs/Diagnostic Data: Laboratory Results Test 06/20/24 04:27 06/18/24 12:46 06/18/24 10:16 06/18/24 09:40 White Blood Count 3.8 10^3/uL (4.4-10.8) Red Blood Count 3.79 10^6/uL (4.5-5.90) Hemoglobin 13.6 g/dL (13.5-17.5) Hematocrit 39.9 % (41.0-53.0) Mean Corpuscular Volume 105.3 fL (80.0-100.0) Mean Corpuscular Hemoglobin 35.8 pg (28.0-32.0) Mean Corpuscular Hemoglobin Concent 34.0 g/dL (32.0-36.0) Red Cell Distribution Width 15.3 % (11.8-14.3) Platelet Count 147 10^3/uL (140-450) Mean Platelet Volume 7.9 fL (6.9-10.8) Neutrophils (%) (Auto) 40.1 % (37.0-80.0) Lymphocytes (%) (Auto) 45.1 % (10.0-50.0) Monocytes (%) (Auto) 10.8 % (0.0-12.0) Eosinophils (%) (Auto) 3.3 % (0.0-7.0) Basophils (%) (Auto) 0.7 % (0.0-2.0) Neutrophils # (Auto) 1.5 10 ^3/uL (1.6-8.6) Lymphocytes # (Auto) 1.7 10 ^3/uL (0.4-5.4) Monocytes # (Auto) 0.4 10 ^3/uL (0-1.3) Eosinophils # (Auto) 0.1 10 ^3/uL (0-0.8) Basophils # (Auto) 0 10 ^3/uL (0-0.2) Nucleated Red Blood Cells 0.3 % Sodium Level 137 mmol/L (136-145) Potassium Level 4.2 mmol/L (3.5-5.1) Chloride Level 104 mmol/L (98-107) Carbon Dioxide Level 27 mmol/L (20-31) Anion Gap 6 (5-15) Blood Urea Nitrogen 8 mg/dL (9-23) Creatinine 0.86 mg/dL (0.700-1.30) Glomerular Filtration Rate Calc 101 mL/min (>90) BUN/Creatinine Ratio 9.3 (10.0-20.0) Serum Glucose 96 mg/dL (74-106) Calcium Level 9.2 mg/dL (8.7-10.4) Total Bilirubin 0.9 mg/dL (0.2-1.0) Aspartate Amino Transferase (AST) 28 U/L (13-40) Alanine Aminotransferase (ALT) 21 U/L (7-40) Alkaline Phosphatase 80 U/L (46-116) Total Protein 6.7 g/dL (5.7-8.2) Albumin 4.0 g/dL (3.2-4.8) Hemoglobin A1c 4.5 % A1C (<5.7) Magnesium Level 1.7 mg/dL (1.6-2.6) Troponin I High Sensitivity < 3 ng/L (</=54) Triglycerides Level 299 mg/dL (< 150) Cholesterol Level 205 mg/dL (< 200) LDL Cholesterol 119 mg/dL (< 100) HDL Cholesterol 50 mg/dL (40-59) Thyroid Stimulating Hormone (TSH) 1.62 uIU/mL (0.55-4.78) Urine Color Dark-yellow (Yellow) Urine Clarity Clear (Clear) Urine pH 5.0 (5.0-9.0) Urine Specific [place] 1.025 (1.001-1.035) Urine Protein Negative (Negative) Urine Ketones Negative (Negative) Urine Blood Negative /uL (Negative) Urine Nitrite Negative (Negative) Urine Bilirubin Negative (Negative) Urine Urobilinogen Normal mg/dL (Negative) Urine Leukocyte Esterase Negative /uL (Negative) Urine RBC <1 /hpf (0 - 3) Urine Microscopic WBC 1 /HPF (0-3) Urine Squamous Epithelial Cells None seen /hpf (<5) Urine Bacteria None seen /hpf (None Seen) Urine Mucus Few (None Seen) Urine Glucose Normal mg/dL (Normal) Urine Opiates Screen Pos (NEGATIVE) Urine Fentanyl Screen Neg (NEGATIVE) Urine Barbiturates Screen Neg (NEGATIVE) Urine Phencyclidine Screen Neg (NEGATIVE) Urine Amphetamines Screen Neg (NEGATIVE) Urine Benzodiazepines Screen Neg (NEGATIVE) Urine Cocaine Screen Neg (NEGATIVE) Urine Cannabinoids Screen Pos (NEGATIVE) Differential Total Cells Counted 100.0 (100) Neutrophils % (Manual) 30 (37.0-80.0) Band Neutrophils % (Manual) 0 Lymphocytes % (Manual) 59 (10.0-50.0) Monocytes % (Manual) 7 (0-12) Eosinophils % (Manual) 4 (0-7) Basophils % (Manual) 0 (0.0-2.0) Metamyelocytes % (manual) 0 Myelocytes % (Manual) 0 Promyelocytes % (Manual) 0 Blast Cells % (Manual) 0 Reactive Lymphocytes 0 Platelet Estimate Adequate D-Dimer, Quantitative 0.22 mg/L FEU (0.0-0.49) B-Type Natriuretic Peptide 28.59 pg/mL (0-100) Other Laboratory Tests 06/20/24 04:27 Brief Hx & Hospital Course: This is a 58-year-old male patient with past medical history of CHF, hypertension, dyslipidemia, pulmonary embolism on Xarelto, morbid obesity, nicotine dependence presented to the ED with a chief complaint of chest pain since 9 mm in the morning prior to this admission. he describes the pain as unprovoked, constant, sharp in nature, midsternal with radiation down to the left side of his chest as well as down his left hand and left jaw. the admission also mentioned multiple hospital and admission in last few years due to the chest pain but never had any invasive procedure before. 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 Initial twelve lead electrocardiogram reveals a low voltage normal sinus rhythm with nonspecific ST segment changes to inferior leads. Initial serial troponin levels have been negative. Hospital course: Initial EKG revealed sinus rhythm without any ST-T changes and troponin trends were unremarkable. Echo was unremarkable. CT angio ruled out pulmonary embolism.Was on board and patient refused further inpatient ischemic cardiac workup. patient was treated with [place] 5/325 q.6 q.4 p.r.n. for back pain and continued home medications. Discharge plan was discussed with the patient and all questions were answered. Patient is being discharged to home with aspirin 81 mg daily, atorvastatin 40 mg at HS and advised to continue home medications. Patient is scheduled to follow up with [facility] clinic on 0 at 10:15 a.m. Physical examination: General Appearance: Alert, Oriented X3, Cooperative, No acute distress HEENT: Atraumatic, PERRLA, EOMI, Mucous membrane moist/pink Respiratory: Clear to auscultation, Normal air movement Cardiovascular: Regular rate, Normal S1, Normal S2, No murmurs, no chest wall tenderness Abdominal: Normal bowel sounds, Soft, No tenderness, No hepatospenomegaly, No masses Extremities: No clubbing, No cyanosis, No edema, Normal pulses, No tenderness/swelling Skin: No rashes, No breakdown, No significant lesion Neuro: Normal gait, Normal speech, Strength at 5/5 X4 ext, Normal tone, Sensation intact, Cranial nerves 3-12 NL, Reflexes 2+ Psych/Mental Status: Mental status NL, Mood NL Discharge diagnosis: # Acute chest pain ruled out ACS # CAD can not ruled out as patient refused further ischemia work up. # Hypertensive urgency # Dyslipidemia # History of pulmonary embolism and on xarelto # Morbid obesity ( BMI 46.2 kg/m2) Consults/Reason for consult Cardiology was consulted Operations or Procedures EXAM: CT CT ANGIO CHEST CONTRAST Findings: Lungs: The lungs are clear. Pleura: Unremarkable Heart/Great vessels: No cardiomegaly or pericardial effusion. No pulmonary embolism, aneurysm, or dissection. Mediastinum: Unremarkable Soft tissues/Bones: Moderate multilevel degenerative changes of the thoracic spine The partially visualized upper abdomen is within normal limits. Impression: 1. No evidence of a pulmonary embolism, aneurysm, or dissection. EXAM: XY CHEST TWO VIEWS ROUTINE FINDINGS: Lines and Tubes: None Lungs: No focal consolidation. Pleura: No effusion. No pneumothorax. Cardiomediastinal contours: Unremarkable Bones: No acute osseous abnormality. IMPRESSION: No acute cardiopulmonary disease. Condition at Discharge: Stable Final Diagnosis/Problems List # Acute chest pain ruled out ACS # CAD can not ruled out as patient refused further ischemia work up. # Hypertensive urgency # Dyslipidemia # History of pulmonary embolism and on xarelto # Morbid obesity ( BMI 46.2 kg/m2) Discharge Disposition: Home Discharge Instruct/Medications Diet: Cardiac 2g Na,low cholest Activity: No Restrictions, As Tolerated Follow Up/Referral: Follow up with [facility] clinic in 1 week Follow up with outpatient cardiology in 1 to 2 weeks. Medications: As per EMR Discharge Statement: "Patient was advised to return to the ER or call 911 if any headaches, dizziness, shortness of breath, chest pain, abdominal pain, bleeding, fevers, or worsening of medical condition. Patient was counseled about treatment plan, medications, possible side effects, patientverbalized understanding. All questions were answered to the best of my ability. This discharge took greater then 30 minutes in planning, reviewing documentation, counseling the patient, and discussing with other team members." ASSESSMENT ASSESSMENT Assessment # Acute chest pain ruled out ACS # CAD can not ruled out as patient refused further ischemia work up. # Hypertensive urgency # Dyslipidemia # History of pulmonary embolism and on xarelto # Morbid obesity ( BMI 46.2 kg/m2) Date of Service: Jun 20, 2024 Billing Provider: DONALDO FRANCIS MD Common Visit Codes: [id number] DISCH DAY >30min ROSAMARIA ANNA RESIDENT Jun 20, 2024 15:35 DONALDO FRANCIS MD Jun 23, 2024 00:28
--- NOTE | 2024-06-20 17:44 | DVHSR ---
APPROVED REPORT EXAM: Two-dimensional and M-mode echocardiogram with Doppler and color Doppler. Blood Pressure: 130/81 mmHg INDICATION Chest Pain r/o acs RISK FACTORS Obesity: Height: 5'10, Weight: 299 DIMENSIONS LVDd4.6 (3.8-5.7cm)LA (2D)3.8 (1.9-4.0cm)Aortic Root3.1 (2.0-3.7cm) LVDs3.0 (2.5-4.0cm)LA (MM) (1.9-4.0cm)Aortic Cusp Exc2.0 (1.5-2.0cm) EF (%) 55.0 (55-70%)Rt. Atrium3.6 (1.9-4.0cm)Asc. Aorta cm IVSd0.8 (0.7-1.1cm)RV (D)4.0 (1.8-2.4cm) PWd0.9 (0.7-1.1cm) Mitral Valve MitralMitral Stenosis E wave0.63m/sMV Mean GR.mmHg A wave0.65m/sMV Peak GR.mmHg E/A ratio1.02D MVAcm2 DECEL [id number] 1/2 Tim[place] Aortic Valve Aortic ValveAortic Stenosis V10.96m/Ulisses Mean GR.3mmHg V21.17m/Ulisses Peak GR.6mmHg LVOT Diameter2.5 (1.8-2.4cm)Doppler AVA4.03cm2 Pulmonic Valve V20.77m/s Tricuspid Valve TR Velocity2.04m/s [id number] Other Information Quality : Technically LimitedRhythm : Technically limited study due to .body habitus. Conclusion Technically good study. Sinus rhythm. Moderate aortic root enlargement. Valves appear to be structurally normal. EF of 60% with normal RV function. Unremarkable Doppler. No pericardial effusion masses or vegetations.
[2024-06-20] MEDS ORDERED: ATORVASTATIN 20 MG TAB PO SCH (22:00)
== END 2024-06-20 14:31 | disposition home or self-care (01) | DRG 199 ==
LOC: ER 09:28 → OVERFLOW 15:05 → TELE-WESTW 23:58
PROVIDERS: ADMIT Student in an Organized Health Care Education/Training Program; ATTEND Student in an Organized Health Care Education/Training Program
DX: I16.0 Hypertensive urgency (principal); I50.9 Heart failure, unspecified; E66.01 Morbid (severe) obesity due to excess calories; I25.10 Atherosclerotic heart disease of native coronary artery without angina pectoris; I11.0 Hypertensive heart disease with heart failure; E78.5 Hyperlipidemia, unspecified; Z87.891 Personal history of nicotine dependence; Z88.6 Allergy status to analgesic agent; Z88.0 Allergy status to penicillin; Z79.01 Long term (current) use of anticoagulants; Z68.42 Body mass index [BMI] 45.0-49.9, adult; Z79.899 Other long term (current) drug therapy
CPT/HCPCS: 36415; 71046; 71275; 80048; 80053; 80061; 80307; 81001; 83036; 83735; 83880; 84443; 84484; 85007; 85025; 85027; 85379; 93005; 93306; 96372; 96374; 96375; 99291; G0378; J2405

== ENCOUNTER 2024-07-07 19:00 | Inpatient (IN) | payer MEDICARE, MEDICAID ==
[~2024-07-07] VITALS: Ht 182.9 cm; Wt 113.5 kg
[~2024-07-07 19:00] MED LIST: ALBU108A5 INH; ASPI81CH59 PO; ATOR40TA52 PO; HYDR-4072 PO; IRBE150T49 PO; METO1TAB9 PO; RIV15T PO
--- NOTE | 2024-07-07 19:19 | ED.PDOC ---
HPI Comments 58 y.o male presents to the ED for a chief complaint of left sided chest pain radiating to his jaw, associated with SOB. Patient reports pain is a 9/10 on the pain scale, has no alleviating or precipitating factors. Patient is a poor historian. No other symptoms or pain reported at this time Vitals: BP: 127/97 HR: 96 Temp: 96.8 F SPO2: 98% RA RR: 20 Past medical history: PE on Xeralto, HTN and hyperlipidemia Past surgical history: Unobtainable Allergies: Ibuprofen and penicillins HPI: Poor Historian. REVIEW OF SYSTEMS: CONSTITUTIONAL: Denies acute: fever, diaphoresis, chills, generalized weakness. HEAD: Denies acute: headache, photophobia Eyes: Denies acute: Double vision, vision loss, eye pain, eye discharge. EARS: Denies acute: tinnitus, hearing loss, ear discharge, ear pain, THROAT: Denies acute: sore throat, swelling, difficulty swallowing , pain with swallowing, change in voice. NECK: Denies acute: neck pain, neck swelling, stiff neck. HEART: Denies acute : palpitations, LUNGS: Denies acute: wheezing, cough, hemoptysis ABDOMEN: Denies acute: abdominal pain, Nausea, Vomiting, diarrhea, melena , hematemesis, hematochezia SKIN: Denies acute: rash, redness, lesions, itchiness. EXTREMITIES: Denies acute: calf pain, numbness, tingling, weakness, denies pain in extremity. Denies acute: Low back pain. Neuro: Denies acute: focal neurological deficit, motor or sensory focal neurological deficit, tremors, seizure like activity, confusion, dizziness, change in mental status, loss of bowel or bladder function, cauda equina like symptoms. : Denies acute: dysuria, hematuria, flank pain, increase in urinary frequency. PSYCH: Denies acute: hallucination, suicidal ideation, homicidal ideation. PHYSICAL EXAM: General: ----[id number]----acute distress, awake and alert. Head: normocephalic, atraumatic. Neck: supple, trachea is midline, no swelling. Throat: Normal phonation. Eyes:, no erythema, no purulent discharge, no proptosis, no icterus. Heart: regular rate, regular rhythm, no significant murmur appreciated. Lungs: no apparent respiratory distress, Able to speak in full sentences. No wheezing, no rhonchi, no crackles. No stridors Clear to auscultation bilaterally. Abdomen: non tender to palpation, non distended, soft, no guarding, no rebound, + bowel sounds. Obese Neuro: Awake, Alert, oriented to name, self, situation, follows commands. Patient's behavior I suspect a developmental delay. Skin: no petechia, no purpura, no cyanosis, non-pale, not jaundice. Lower extremities: --no - Pitting edema no deformity, no focal swelling, no calf TTP. Makes eye contact. moves all four extremities. Face: no apparent facial droop. ED COURSE: Chief Complaint: Chest Pain Time Seen by MD: 19:03 Primary Care Provider: unknown Reviewed Notes: Nurses Notes, Allergies Allergies: Coded Allergies: Ibuprofen (Verified Allergy, Unknown, 06/18/24) Penicillins (Verified Allergy, Unknown, 06/18/24) Home Meds Active Scripts Aspirin (Aspirin Low Dose) 81 Mg Chw, 1 TAB PO DAILY for 30 Days, #30 TAB 3 Refills Prov:WILLIE ANNARA RESIDENT 06/20/24 Atorvastatin Calcium (ATORVASTATIN CALCIUM) 40 Mg Tab, 1 TAB PO QPM for 30 Days, #30 TAB 3 Refills Prov:ROWDY ANNAHIRA RESIDENT 06/20/24 Reported Medications Albuterol Sulfate (Albuterol Sulfate Hfa) 108 Mcg/Act Aer, 2 PUFF INH Q6H 06/19/24 Rivaroxaban (Xarelto Tablet) 15 Mg Tb, 1 TAB PO DAILY 06/19/24 Metoprolol Succinate (Metoprolol Succinate Er) 100 Mg Tab, 1 TAB PO DAILY 06/19/24 Irbesartan (IRBESARTAN) 150 Mg Tab, 1 TAB PO DAILY 06/19/24 Hydrocodone-Acetaminophen (Hydrocodone/Acetaminophen 10-325 mg) 1 Tab Tab, 1 TAB PO Q6HP PRN for PAIN SCALE 7 THRU 10 06/19/24 Information Source: Patient Mode of Arrival: Wheelchair Past Medical History PAST MEDICAL HISTORY: High Lipids, HTN, PE Surgical History: Denies all surgeries Family History Family History: Reviewed,noncontributory to illness Social History Smoker: Non-Smoker Alcohol: Denies ETOH Use Drugs: Denies Drug Use Lives In: Home Was a procedure done? Was a procedure done?: No CP Differential Dx Differential Diagnosis: N/A Differential Diagnosis: Angina, Chest Wall Pain, Costochondritis, Esophageal reflux/spasm, Myocardial Infarction, Pericarditis, Other (Ddx include but not limitied to gastritis, musculoskeletal pain, radiculopathy, atypical chest pain, dissection, aneurysm, ACS, unstable angina, hiatal hernia, GERD, anxiety, costochondritis, PE, pneumothroax, neoplasm, cardiac ischemia, drug abuse, anemia.) X-Ray, Labs, Meds, VS Vital Signs Date Time Temp Pulse Resp B/P (MAP) Pulse Ox O2 Delivery O2 Flow Rate FiO2 07/07/24 20:01 86 07/07/24 19:44 95/66 07/07/24 19:43 98.3 99 20 95/66 (76) 94 98.3 07/07/24 19:12 96.8 96 20 127/97 (107) 98 96.8 07/07/24 19:03 96 Lab Test 07/07/24 21:44 07/07/24 19:12 Range/Units Lactic Acid Level 2.9 *H 2.9 *H 0.4-2.0 mmol/L Troponin I High Sensitivity < 3 L < 3 L </=54 ng/L White Blood Count 4.7 4.4-10.8 10^3/uL Red Blood Count 4.61 4.5-5.90 10^6/uL Hemoglobin 16.5 13.5-17.5 g/dL Hematocrit 48.5 41.0-53.0 % Mean Corpuscular Volume 105.3 H 80.0-100.0 fL Mean Corpuscular Hemoglobin 35.8 H 28.0-32.0 pg Mean Corpuscular Hemoglobin Concent 34.0 32.0-36.0 g/dL Red Cell Distribution Width 15.6 H 11.8-14.3 % Platelet Count 239 140-450 10^3/uL Mean Platelet Volume 7.9 6.9-10.8 fL Neutrophils (%) (Auto) 37.0-80.0 % Lymphocytes (%) (Auto) 10.0-50.0 % Monocytes (%) (Auto) 0.0-12.0 % Basophils (%) (Auto) 0.0-2.0 % Neutrophils # (Auto) 1.6-8.6 10 ^3/uL Lymphocytes # (Auto) 0.4-5.4 10 ^3/uL Monocytes # (Auto) 0-1.3 10 ^3/uL Differential Total Cells Counted 100.0 100 Neutrophils % (Manual) 30 L 37.0-80.0 Band Neutrophils % (Manual) 0 Lymphocytes % (Manual) 64 H 10.0-50.0 Monocytes % (Manual) 6 0-12 Eosinophils % (Manual) 0 0-7 Basophils % (Manual) 0 0.0-2.0 Metamyelocytes % (manual) 0 Myelocytes % (Manual) 0 Promyelocytes % (Manual) 0 Blast Cells % (Manual) 0 Reactive Lymphocytes 0 Platelet Estimate Adequate Macrocytosis Slight Sodium Level 143 136-145 mmol/L Potassium Level 3.9 3.5-5.1 mmol/L Chloride Level 110 H 98-107 mmol/L Carbon Dioxide Level 21 20-31 mmol/L Anion Gap 12 5-15 Blood Urea Nitrogen 10 9-23 mg/dL Creatinine 0.95 0.700-1.30 mg/dL Glomerular Filtration Rate Calc 93 >90 mL/min BUN/Creatinine Ratio 10.5 10.0-20.0 Serum Glucose 125 H 74-106 mg/dL Calcium Level 9.1 8.7-10.4 mg/dL Magnesium Level 2.1 1.6-2.6 mg/dL Total Bilirubin 0.5 0.2-1.0 mg/dL Aspartate Amino Transferase (AST) 29 13-40 U/L Alanine Aminotransferase (ALT) 33 7-40 U/L Alkaline Phosphatase 95 46-116 U/L B-Type Natriuretic Peptide 5.85 0-100 pg/mL Total Protein 7.9 5.7-8.2 g/dL Albumin 4.5 3.2-4.8 g/dL Current Medications Medications (Trade) Dose Ordered Sig/Carlos Route Start Time Stop Time Status Last Admin Aspirin (Ecotrin Enteric Coated Tablet) 325 mg ONCE ONCE PO 07/07/24 19:15 07/07/24 19:16 DC 07/07/24 19:47 Ceftriaxone Sodium 50 ml @ 100 mls/hr ONCE ONCE IV 07/07/24 20:30 07/07/24 21:29 DC 07/07/24 21:49 [place] [address] Ph: [phone] DIAGNOSTIC IMAGING Diagnostic Imaging Report : [id number] Signed PATIENT: ALVARO DUVALL WACCT: [id number] UNIT: [id number] : 1965 LOC: ER ROOM / BED: / AGE / SEX: 58 / M ADM STATUS: REG ER SERVICE 09 ORDERING PHYSICIAN: RONALD VENEGAS DO PROCEDURE(s): CXRP - CHEST PORTABLE REASON: cp ORDER NUMBER(s): [id number], ACCESSION NUMBER(s): [id number] CHEST RADIOGRAPH Indication: cp Technique: Single frontal view of the chest was obtained Comparison: None FINDINGS: Lines and Tubes: None Lungs: No focal consolidation. Mild interstitial prominence. Linear density of the left lower lung zone. Pleura: No effusion. No pneumothorax. Cardiomediastinal contours: Unremarkable Bones: No acute osseous abnormality. IMPRESSION: No focal consolidation. Questionable mild pulmonary vascular congestion with left lower lung zone linear atelectasis. ATED BY: AISLINN BATISTA DO DICTATED DATE/TIME: 07/07/242000 SIGNED BY: AISLINN BATISTA DO SIGNED DATE/TIME: 07/07/242000 CC: Time of 1ST Reevaluation: 19:16 Reevaluation 1ST: Unchanged Time of 2ND Reevaluation: 21:35 (Second troponin, urinalysis, drug screen are still pending) Patient Education/Counseling: Diagnosis Family Education/Counseling: No Family Present Comments Patient presented with the above HPI.---cardiac---workup was initiated. patient was found with the above mentioned diagnosis. the following medications were ordered: please refer to order lists of meds and tests obtained by myself Dr. Venegas. Patient ED course and VS have been stabilized. Patient has been reassessed in the ED and remained in a stable condition. Pertinent incidental findings were discussed with the patient and/or family. Patient/family voices understanding and is agreeable with plan. Patient has been observed in the ED adequate length of time to insure improvement/stability. Escalation of care considered: Consideration of escalation to observation or admission Patient was ADMITTED to the medicine team for further evaluation and treatment of their presentation. All the reports of any imaging studies that were ordered by myself were reviewed by myself. Departure 1 Departure Time of Disposition: 20:21 Impression: Primary Impression: Chest pain Disposition: ADMITTED INPATIENT Admit to: Tele Condition: Guarded Discharged With: Self Critical Care Note Critical Care Time?: No Heart Score Heart Score: Heart Score Response (Comments) Value History Highly Suspicious 2 EKG Normal 0 Age 45-64 1 Risk Factors >3 or Hx ASHD 2 Troponin Normal limit 0 Total 5 I personally scribed for RONALD VENEGAS DO ([email or web address]) on 07/07/24 at 19:19. Electronically submitted by Marleny Barnett ([facility]). I personally scribed for RONALD VENEGAS DO ([email or web address]) on 07/07/24 at 19:42. Electronically submitted by Marleny Barnett ([facility]). RONALD VENEGAS DO Jul 07, 2024 19:19
[2024-07-07 19:34] LABS: Hematocrit 48.5 % (41.0-53.0); Hemoglobin 16.5 g/dL (13.5-17.5); Mean Corpuscular Hemoglobin 35.8 pg (28.0-32.0); Mean Corpuscular Volume 105.3 fL (80.0-100.0); Platelet Count (auto) 239 10^3/uL (140-450); Red Blood Cells 4.61 10^6/uL (4.5-5.90); Red Cell Distribution Width 15.6 % (11.8-14.3); White Blood Cell 4.7 10^3/uL (4.4-10.8)
[2024-07-07 19:37] LABS: Band Neutrophils % (manual) 0; Basophils % (manual) 0 (0.0-2.0); Blast Cells 0; Eosinophils % (manual) 0 (0-7); Metamyelocytes % 0; Myelocytes % 0; Promyelocytes % 0; Reactive Lymphocytes 0
[2024-07-07] MEDS: NITROGLYCERIN 0.4 MG SL TAB SL ONE (19:44)
[2024-07-07] MEDS: ASPirin-EC 325mg tab PO ONE (19:47)
[2024-07-07 19:58] LABS: Alanine Aminotransferase 33 U/L (7-40); Alkaline Phosphatase 95 U/L (46-116); Anion Gap 12 (5-15); Aspartate Aminotransferase 29 U/L (13-40); BUN/Creatinine Ratio 10.5 (10.0-20.0); Blood Urea Nitrogen 10 mg/dL (9-23); Calcium 9.1 mg/dL (8.7-10.4); Carbon Dioxide 21 mmol/L (20-31); Magnesium 2.1 mg/dL (1.6-2.6); Potassium 3.9 mmol/L (3.5-5.1); Sodium 143 mmol/L (136-145); Total Protein 7.9 g/dL (5.7-8.2)
[2024-07-07 19:59] LABS: Albumin 4.5 g/dL (3.2-4.8); Bilirubin, Total 0.5 mg/dL (0.2-1.0)
[2024-07-07 20:02] LABS: Chloride 110 mmol/L (98-107); Glucose 125 mg/dL (74-106)
[2024-07-07 20:04] LABS: Lactic Acid w/Reflex 2.9 mmol/L (0.4-2.0)
--- NOTE | 2024-07-07 20:04 | DVH ---
CHEST RADIOGRAPH Indication: cp Technique: Single frontal view of the chest was obtained Comparison: None FINDINGS: Lines and Tubes: None Lungs: No focal consolidation. Mild interstitial prominence. Linear density of the left lower lung z one. Pleura: No effusion. No pneumothorax. Cardiomediastinal contours: Unremarkable Bones: No acute osseous abnormality. IMPRESSION: No focal consolidation. Questionable mild pulmonary vascular congestion with left lower lung zone li near atelectasis.
[2024-07-07 20:18] LABS: Lymphocytes % (manual) 64 (10.0-50.0); Macrocytosis Slight; Monocytes % (manual) 6 (0-12); Platelet Estimate Adequate
[2024-07-07] MEDS: cefTRIAXone 1GM/50ML D5W 50 ML IV ONE (21:49)
[2024-07-07] MEDS ORDERED: ONDANSETRON HCL 4 MG/2 ML VIAL IV PRN (23:00)
[2024-07-07] MEDS ORDERED: ALBUTEROL SULF 2.5 MG/0.5ML(0.5%) NEB SOLN NEB PRN (23:00)
[2024-07-07] MEDS ORDERED: ACETAMINOPHEN 325 MG TAB PO PRN (23:00)
[2024-07-07] MEDS ORDERED: NITROGLYCERIN 0.4 MG SL TAB SL PRN (23:00)
[2024-07-07] MEDS ORDERED: MORPHINE SULFATE INJ 2 MG/ml SYRG IV PRN (23:00)
--- NOTE | 2024-07-07 23:18 | DVHHPRES ---
History of Present Illness Resident Creating Document: PHOEBE ALANIZ RESDIENT History of Present Illness This is a 58-year-old morbidly obese male with past medical history of hypertension, dyslipidemia, CHF, pulmonary emboli (4 times, on Xarelto) came to the hospital due to chest pain since 2 days. Pain is localized on left-side of chest radiating to the neck and left hand, describes as constant, sharp in nature, 9/10 with no clear exacerbating or relieving factor. He also reports nausea, shortness of breaths, abdominal pain and palpitation. He denies fever, vomiting, abdominal pain, or any recent bowel and bladder habit changes. Previous hospitalization: He was discharged on 06/20/24, had admitted due to same symptoms. EKG, serial trop I and echocardiogram were within normal limits. Was evaluated by Cardiology and recommended stress test but the patient refused. PMHx: Hypertension, dyslipidemia, pulmonary emboli and CHF. Per patient he had 2 myocardial infarction in the past (once when he was 38-year-old and 2nd time when he was 56-year-old), he also had a stress test 4 years back which was abnormal, and subsequently underwent left heart catheterization with no significant coronary artery disease. PSHx: Not significant Family history: Noncontributory Social history: lives at home, denies smoking or any other drug use Home medication: Atorvastatin, aspirin, irbesartan, albuterol, metoprolol and Xarelto Allergic history: Ibuprofen and penicillins Review of Systems Review of Systems General: patient denies fever, fatigue, weaknes, sweating, any recent changes in appetite and weight HEENT: No headaches, visiual changes, hearing loss, tinnitus, nasal congestion and discharge, and sore throat. Cardiovascular: Reports chest pain and palpitation Respiratory: Reports shortness of breaths Gastrointestinal: Reports nausea and abdominal pain Genitourinary: No dysuria, hematuria, discharge, frequency, urgency, nocturia, incontinence, and urinary retention. Endocrine: No heat or cold intolerance, polydipsia, polyuria, and polyphagia. Neurological: No dizziness, extremity weakness and numbness, tremors, gait disturbance, seizures, and memory impairment. Psychiatric: Denies depression, anxiety,or insomnia. Musculoskeletal: Denies neck pain, stiffness and swelling, back pain, muscle weakness, joint pain, stiffness, swelling, or limited range of motion. Skin: No rashes, itching, skin lesion, changes in hair, nail, skin texture and breast. Hematologic/Lymphatic: Denies easy bruising, bleeding tendencies, or lymph node enlargement. Allergies: Coded Allergies: Ibuprofen (Verified Allergy, Unknown, 06/18/24) Penicillins (Verified Allergy, Unknown, 06/18/24) Exam Vital Signs Vital Signs Date Time Temp Pulse Resp B/P (MAP) Pulse Ox O2 Delivery O2 Flow Rate FiO2 07/07/24 20:01 86 07/07/24 19:44 95/66 07/07/24 19:43 98.3 20 94 98.3 Exam General Appearance: Alert, Oriented X3, Cooperative, No acute distress HEENT: Atraumatic, PERRLA, EOMI, Mucous membrane moist/pink Respiratory: Clear to auscultation, Normal air movement Cardiovascular: Regular rate, Normal S1, Normal S2, No murmurs, no chest wall tenderness Abdominal: Normal bowel sounds, Soft, No tenderness, No hepatospenomegaly, No masses Extremities: No clubbing, No cyanosis, No edema, Normal pulses, No tenderness/swelling Skin: No rashes, No breakdown, No significant lesion Neuro: Normal gait, Normal speech, Strength at 5/5 X4 ext, Normal tone, Sensation intact, Cranial nerves 3-12 NL, Reflexes 2+ Psych/Mental Status: Mental status NL, Mood NL Labs/Xrays Labs Test 07/07/24 21:44 07/07/24 19:12 Range/Units Lactic Acid Level 2.9 *H 0.4-2.0 mmol/L Troponin I High Sensitivity < 3 L </=54 ng/L White Blood Count 4.7 4.4-10.8 10^3/uL Red Blood Count 4.61 4.5-5.90 10^6/uL Hemoglobin 16.5 13.5-17.5 g/dL Hematocrit 48.5 41.0-53.0 % Mean Corpuscular Volume 105.3 H 80.0-100.0 fL Mean Corpuscular Hemoglobin 35.8 H 28.0-32.0 pg Mean Corpuscular Hemoglobin Concent 34.0 32.0-36.0 g/dL Red Cell Distribution Width 15.6 H 11.8-14.3 % Platelet Count 239 140-450 10^3/uL Mean Platelet Volume 7.9 6.9-10.8 fL Neutrophils (%) (Auto) 37.0-80.0 % Lymphocytes (%) (Auto) 10.0-50.0 % Monocytes (%) (Auto) 0.0-12.0 % Basophils (%) (Auto) 0.0-2.0 % Neutrophils # (Auto) 1.6-8.6 10 ^3/uL Lymphocytes # (Auto) 0.4-5.4 10 ^3/uL Monocytes # (Auto) 0-1.3 10 ^3/uL Differential Total Cells Counted 100.0 100 Neutrophils % (Manual) 30 L 37.0-80.0 Band Neutrophils % (Manual) 0 Lymphocytes % (Manual) 64 H 10.0-50.0 Monocytes % (Manual) 6 0-12 Eosinophils % (Manual) 0 0-7 Basophils % (Manual) 0 0.0-2.0 Metamyelocytes % (manual) 0 Myelocytes % (Manual) 0 Promyelocytes % (Manual) 0 Blast Cells % (Manual) 0 Reactive Lymphocytes 0 Platelet Estimate Adequate Macrocytosis Slight Sodium Level 143 136-145 mmol/L Potassium Level 3.9 3.5-5.1 mmol/L Chloride Level 110 H 98-107 mmol/L Carbon Dioxide Level 21 20-31 mmol/L Anion Gap 12 5-15 Blood Urea Nitrogen 10 9-23 mg/dL Creatinine 0.95 0.700-1.30 mg/dL Glomerular Filtration Rate Calc 93 >90 mL/min BUN/Creatinine Ratio 10.5 10.0-20.0 Serum Glucose 125 H 74-106 mg/dL Calcium Level 9.1 8.7-10.4 mg/dL Magnesium Level 2.1 1.6-2.6 mg/dL Total Bilirubin 0.5 0.2-1.0 mg/dL Aspartate Amino Transferase (AST) 29 13-40 U/L Alanine Aminotransferase (ALT) 33 7-40 U/L Alkaline Phosphatase 95 46-116 U/L B-Type Natriuretic Peptide 5.85 0-100 pg/mL Total Protein 7.9 5.7-8.2 g/dL Albumin 4.5 3.2-4.8 g/dL Assessment/Plan Assessment/Plan Chest pain, likely due to ACS Hypertension Dyslipidemia History of pulmonary emboli Echo from 06/18/2024 shows normal studies we LV EF 60% EKGs shows normal sinus rhythm with no acute ST or T-wave changes Serial trop I is within normal limit During previous admission patient was evaluated by Cardiology and recommended stress test, but the patient refused Consult cardiology Aspirin Atorvastatin Metoprolol Irbesartan Xarelto Obesity grade 1 DIET: Cardiac DVT PROPHYLAXIS: Patient is on Xarelto GI PROPHYLAXIS:: Protonix CODE STATUS: Goal of care discussed for more than 18 minutes, full code DISPOSITION: Telemetry Patient's status and plan discussed with the patient. Case discussed with Dr. Yo. Plan discussed with: Patient, Other (RN) My Orders Orders - PHOEBE ALANIZ RESDIPRABHAKAR Procedure Category Date Status Time Admit ADMIT 07/07/24 Verified 22:58 Code Status CODE 07/07/24 Verified 22:58 Vital Signs [facility] 07/07/24 Verified 22:58 Review Orders With [facility] 07/07/24 Verified Adm. 22:58 Consistent DIET 07/08/24 Verified Carb(Ccho)Diabetes Breakfast Acetaminophen Tablet [facility] 07/07/24 Verified (Tylenol Tablet) 23:00 Notify Of Changes [facility] 07/07/24 Verified From Base 22:58 Advance Directive [facility] 07/07/24 Verified 22:58 Patient Condition ORDERS 07/07/24 Verified 22:58 Allergies [facility] 07/07/24 Verified 22:58 Hydrocodone-Acet [facility] 07/07/24 Verified 5/325mg Tab ([place] 23:00 Ondansetron Hcl [facility] 07/07/24 Verified (Zofran) 23:00 Lovenox 40mg [facility] 07/08/24 Verified 10:00 Nitroglycerin [facility] 07/07/24 Verified Sublingual (Ntrostat 23:00 Morphine Sulfate [facility] 07/07/24 Verified Injection 23:00 Stat Ekg For Chest [facility] 07/07/24 Verified Pain 22:58 Notify Of Changes [facility] 07/07/24 Verified From Base 22:58 Msws For [facility] 07/07/24 Verified 24 Hours 22:58 Emergency Dysrhythmia [facility] 07/07/24 Verified Protocol 22:58 Rhythm Strips Once [facility] 07/07/24 Verified Every Shift 22:58 * Cardiology Consult CONS 07/07/24 Verified 22:58 Complete Blood Count LAB 07/08/24 Verified 04:00 Comprehensive LAB 07/08/24 Verified Metabolic Panel 04:00 D-Dimer LAB 07/07/24 Verified 22:58 PTPTT LAB 07/08/24 Verified 04:00 Aspirin Tablet [facility] 07/08/24 Verified 10:00 Atorvastatin (Lipitor) [facility] 07/07/24 Verified 23:00 Atorvastatin (Lipitor) PHA 07/08/24 Verified 22:00 Pantoprazole PHA 07/07/24 Verified (Protonix) 23:00 Pantoprazole PHA 07/08/24 Verified (Protonix) 10:00 Albuterol Medneb PHA 07/07/24 Verified (Ventolin Medneb) 23:00 Metoprolol Xl [facility] 07/07/24 Verified Succinate (Toprol Xl) 23:00 Metoprolol Xl [facility] 07/08/24 Verified Succinate (Toprol Xl) 10:00 Rivaroxaban Tablet [facility] 07/08/24 Verified (Xarelto Tablet) 18:00 Patients Own PHA 07/08/24 Verified Medication 10:00 Date of Service: Jul 07, 2024 Billing Provider: CAROLE YO MD Common Visit Codes: [id number] INP/OBS CARE (HIGH) [facility] Jul 07, 2024 23:18 CAROLE YO MD Jul 08, 2024 11:03
[2024-07-07] MEDS: METOPROLOL SUCCINATE XL 50 MG TAB PO ONE (23:35)
[2024-07-07] MEDS: HYDROcodone-ACET 5/325MG TAB PO PRN (23:36)
[2024-07-07] MEDS: PANTOPRAZOLE 40 MG/10 ML VIAL INJ IV ONE (23:36)
[2024-07-07] MEDS: ATORVASTATIN 20 MG TAB PO ONE (23:39)
[2024-07-08 00:48] VITALS: O2SAT 94
[2024-07-08 00:50] VITALS: BP 130/72; PULSE 91; RESP 18; TEMP 98.3; O2SAT 94
[2024-07-08] MEDS ORDERED: SODIUM CHLORIDE 0.9% 1,000 ML IV ONE (08:30)
[2024-07-08] MEDS ORDERED: METOPROLOL SUCCINATE XL 50 MG TAB PO SCH (10:00)
[2024-07-08] MEDS ORDERED: ASPirin 81 mg TAB PO SCH (10:00)
[2024-07-08] MEDS ORDERED: PANTOPRAZOLE 40 MG/10 ML VIAL INJ IV SCH (10:00)
[2024-07-08] MEDS ORDERED: ENOXAPARIN SOD 40 MG/0.4 ML SYRINGE SC SCH (10:00)
[2024-07-08] MEDS ORDERED: LOSARTAN POTASSIUM 50 MG TAB PO SCH (10:00)
--- NOTE | 2024-07-08 17:29 | DVHDSRES ---
Discharge Summary Date of Admission Resident Creating Document: PHOEBE ALANIZ RESDIENT Jul 07, 2024 at 22:58 Date of Discharge: Jul 08, 2024 Admitting Diagnosis Acute chest pain rule out ACS Labs/Diagnostic Data: Laboratory Results Test 07/07/24 23:45 07/07/24 21:44 07/07/24 19:12 D-Dimer, Quantitative < 0.19 mg/L FEU (0.0-0.49) Troponin I High Sensitivity < 3 ng/L (</=54) Lactic Acid Level 2.9 mmol/L (0.4-2.0) White Blood Count 4.7 10^3/uL (4.4-10.8) Red Blood Count 4.61 10^6/uL (4.5-5.90) Hemoglobin 16.5 g/dL (13.5-17.5) Hematocrit 48.5 % (41.0-53.0) Mean Corpuscular Volume 105.3 fL (80.0-100.0) Mean Corpuscular Hemoglobin 35.8 pg (28.0-32.0) Mean Corpuscular Hemoglobin Concent 34.0 g/dL (32.0-36.0) Red Cell Distribution Width 15.6 % (11.8-14.3) Platelet Count 239 10^3/uL (140-450) Mean Platelet Volume 7.9 fL (6.9-10.8) Neutrophils (%) (Auto) % (37.0-80.0) Lymphocytes (%) (Auto) % (10.0-50.0) Monocytes (%) (Auto) % (0.0-12.0) Basophils (%) (Auto) % (0.0-2.0) Neutrophils # (Auto) 10 ^3/uL (1.6-8.6) Lymphocytes # (Auto) 10 ^3/uL (0.4-5.4) Monocytes # (Auto) 10 ^3/uL (0-1.3) Differential Total Cells Counted 100.0 (100) Neutrophils % (Manual) 30 (37.0-80.0) Band Neutrophils % (Manual) 0 Lymphocytes % (Manual) 64 (10.0-50.0) Monocytes % (Manual) 6 (0-12) Eosinophils % (Manual) 0 (0-7) Basophils % (Manual) 0 (0.0-2.0) Metamyelocytes % (manual) 0 Myelocytes % (Manual) 0 Promyelocytes % (Manual) 0 Blast Cells % (Manual) 0 Reactive Lymphocytes 0 Platelet Estimate Adequate Macrocytosis Slight Sodium Level 143 mmol/L (136-145) Potassium Level 3.9 mmol/L (3.5-5.1) Chloride Level 110 mmol/L (98-107) Carbon Dioxide Level 21 mmol/L (20-31) Anion Gap 12 (5-15) Blood Urea Nitrogen 10 mg/dL (9-23) Creatinine 0.95 mg/dL (0.700-1.30) Glomerular Filtration Rate Calc 93 mL/min (>90) BUN/Creatinine Ratio 10.5 (10.0-20.0) Serum Glucose 125 mg/dL (74-106) Calcium Level 9.1 mg/dL (8.7-10.4) Magnesium Level 2.1 mg/dL (1.6-2.6) Total Bilirubin 0.5 mg/dL (0.2-1.0) Aspartate Amino Transferase (AST) 29 U/L (13-40) Alanine Aminotransferase (ALT) 33 U/L (7-40) Alkaline Phosphatase 95 U/L (46-116) B-Type Natriuretic Peptide 5.85 pg/mL (0-100) Total Protein 7.9 g/dL (5.7-8.2) Albumin 4.5 g/dL (3.2-4.8) Other Laboratory Tests 07/07/24 19:12 Brief Hx & Hospital Course: This is a 58-year-old morbidly obese male with past medical history of hypertension, dyslipidemia, CHF, pulmonary emboli (4 times, on Xarelto) came to the hospital due to chest pain since 2 days. Pain is localized on left-side of chest radiating to the neck and left hand, describes as constant, sharp in nature, 9/10 with no clear exacerbating or relieving factor. EKGs shows normal sinus rhythm with no acute ST or T-wave changes ,Serial trop I is within normal limit and Echo from 06/18/2024 shows normal studies we LV EF 60% . During previous admission patient was evaluated by Cardiology and recommended stress test, but the patient refused. The patient left AMA from the ER. Condition at Discharge: Undetermined Final Diagnosis/Problems List Chest pain rule out ACS Hypertension Dyslipidemia History of pulmonary emboli Obesity, BMI 33.9 kg/m2 Discharge Disposition: AMA Discharge Statement: "Patient was advised to return to the ER or call 911 if any headaches, dizziness, shortness of breath, chest pain, abdominal pain, bleeding, fevers, or worsening of medical condition. Patient was counseled about treatment plan, medications, possible side effects, patientverbalized understanding. All questions were answered to the best of my ability. This discharge took greater then 30 minutes in planning, reviewing documentation, counseling the patient, and discussing with other team members." ASSESSMENT ASSESSMENT Assessment ROSAMARIA ANNA RESIDENT Jul 08, 2024 17:29
[2024-07-08] MEDS ORDERED: RIVAROXABAN 15 MG TAB PO SCH (18:00)
[2024-07-08] MEDS ORDERED: ATORVASTATIN 20 MG TAB PO SCH (22:00)
--- NOTE | 2024-07-09 12:33 | ECG ---
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
--- NOTE | 2024-07-09 14:03 | ECG ---
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
== END 2024-07-08 02:34 | disposition left against medical advice (07) | DRG 311 ==
LOC: ER 19:00 → OVERFLOW 22:58
PROVIDERS: ADMIT Student in an Organized Health Care Education/Training Program; ATTEND Emergency Medicine
DX: I24.9 Acute ischemic heart disease, unspecified (principal); E78.5 Hyperlipidemia, unspecified; E66.01 Morbid (severe) obesity due to excess calories; I50.9 Heart failure, unspecified; Z53.29 Procedure and treatment not carried out because of patient's decision for other reasons; I11.0 Hypertensive heart disease with heart failure; Z88.6 Allergy status to analgesic agent; Z88.0 Allergy status to penicillin; Z79.82 Long term (current) use of aspirin; Z79.899 Other long term (current) drug therapy; Z79.891 Long term (current) use of opiate analgesic; Z86.711 Personal history of pulmonary embolism; Z68.33 Body mass index [BMI] 33.0-33.9, adult; I25.2 Old myocardial infarction
CPT/HCPCS: 36415; 71045; 80053; 83605; 83735; 83880; 84484; 85007; 85027; 85379; 93005; 96365; 96375; G0378; J2470

== ENCOUNTER 2024-07-17 06:25 | Inpatient (IN) | payer MEDICAID ==
[~2024-07-17] VITALS: Ht 180.3 cm; Wt 151.5 kg
--- NOTE | 2024-07-17 06:43 | ECG ---
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
--- NOTE | 2024-07-17 06:53 | ED.PDOC ---
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 Patient reports on onset of symptoms, yesterday, unprovoked, with no recent stressors, strenuous activities, or sick contact endorsed. He denies any palpitations, shortness of breath, nausea, vomiting, fever, chills, or other associated symptoms or modifiers at this time. Chief Complaint: Chest Pain Time Seen by MD: 06:35 Primary Care Provider: unknown Reviewed Notes: Nurses Notes, Medications, Allergies Allergies: Coded Allergies: Ibuprofen (Verified Allergy, Unknown, 06/18/24) Penicillins (Verified Allergy, Unknown, 06/18/24) Home Meds Active Scripts Aspirin (Aspirin Low Dose) 81 Mg Chw, 1 TAB PO DAILY for 30 Days, #30 TAB 3 Refills Prov:ROSAMARIA ANNA RESIDENT 06/20/24 Atorvastatin Calcium (ATORVASTATIN CALCIUM) 40 Mg Tab, 1 TAB PO QPM for 30 Days, #30 TAB 3 Refills Prov:ROSAMARIA ANNA RESIDENT 06/20/24 Reported Medications Albuterol Sulfate (Albuterol Sulfate Hfa) 108 Mcg/Act Aer, 2 PUFF INH Q6H 06/19/24 Rivaroxaban (Xarelto Tablet) 15 Mg Tb, 1 TAB PO DAILY 06/19/24 Metoprolol Succinate (Metoprolol Succinate Er) 100 Mg Tab, 1 TAB PO DAILY 06/19/24 Irbesartan (IRBESARTAN) 150 Mg Tab, 1 TAB PO DAILY 06/19/24 Hydrocodone-Acetaminophen (Hydrocodone/Acetaminophen 10-325 mg) 1 Tab Tab, 1 TAB PO Q6HP PRN for PAIN SCALE 7 THRU 10 06/19/24 Information Source: Patient Mode of Arrival: Ambulatory Severity: Moderate Timing: Days Duration: Since onset Prehospital treatment: None Past Medical History PAST MEDICAL HISTORY: CHF, High Lipids, HTN, PE (4x - on Xarelto) Surgical History: Denies all surgeries Family History Family History: Reviewed,noncontributory to illness Social History Smoker: Non-Smoker Alcohol: Denies ETOH Use Drugs: Denies Drug Use Lives In: Home All Other Systems: Reviewed and Negative (Comprehensive systems review obtained and negative except for what is stated in the HPI.) Physical Exam General Appearance: Moderate Distress, Obese HEENT: Normal ENT Inspection, Pharynx Normal, TMs Normal Neck: Full Range of Motion, Non-Tender, Normal, Normal Inspection Respiratory: Chest Non-Tender, Lungs Clear, No Accessory Muscle Use, No Respiratory Distress, Normal Breath Sounds Cardiovascular: No Edema, No JVD, No Murmur, No Gallop, Normal Peripheral Pulses, Regular Rate/Rhythm Breast Exam: Deferred Gastrointestinal: No Organomegaly, Non Tender, No Pulsatile Mass, Normal Bowel Sounds, Soft Genitalia: Deferred Pelvic: Deferred Rectal: Deferred Extremities: No calf tenderness, Normal capillary refill, Normal inspection, Normal range of motion, Non-tender, No pedal edema Musculoskeletal : Apperance: Normal 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 Was a procedure done?: No CP Differential Dx Differential Diagnosis: A-fib, A-Flutter, Angina, Anxiety / Panic Attack, Atrial Dysrhythmia, Electrolyte Disorder, N/A Differential Diagnosis: N/A Differential Diagnosis: Angina, Chest Wall Pain, Cholelithiasis, Costochondritis, Esophageal reflux/spasm, Gastritis, Myocardial Infarction, Pericarditis, Pneumonia, Pulmonary Embolus X-Ray, Labs, Meds, VS Vital Signs Date Time Temp Pulse Resp B/P (MAP) Pulse Ox O2 Delivery O2 Flow Rate FiO2 07/17/24 13:25 68 16 111/79 (90) 97 07/17/24 10:56 76 14 105/72 (83) 98 07/17/24 10:52 70 16 105/72 07/17/24 10:04 91 14 124/71 07/17/24 07:36 97.1 77 20 133/75 (94) 97.1 07/17/24 07:25 77 20 133/75 07/17/24 06:54 85 17 123/78 07/17/24 06:53 90 07/17/24 06:30 98.8 85 17 123/78 (93) 97 98.8 07/17/24 06:29 90 Lab Test 07/17/24 07:39 07/17/24 06:42 Range/Units Troponin I High Sensitivity < 3 L < 3 L </=54 ng/L Thyroid Stimulating Hormone (TSH) Pending White Blood Count 4.4 4.4-10.8 10^3/uL Red Blood Count 3.77 L 4.5-5.90 10^6/uL Hemoglobin 13.8 13.5-17.5 g/dL Hematocrit 39.9 L 41.0-53.0 % Mean Corpuscular Volume 105.7 H 80.0-100.0 fL Mean Corpuscular Hemoglobin 36.5 H 28.0-32.0 pg Mean Corpuscular Hemoglobin Concent 34.6 32.0-36.0 g/dL Red Cell Distribution Width 15.1 H 11.8-14.3 % Platelet Count 170 140-450 10^3/uL Mean Platelet Volume 7.8 6.9-10.8 fL Neutrophils (%) (Auto) 37.0-80.0 % Lymphocytes (%) (Auto) 10.0-50.0 % Monocytes (%) (Auto) 0.0-12.0 % Basophils (%) (Auto) 0.0-2.0 % Neutrophils # (Auto) 1.6-8.6 10 ^3/uL Lymphocytes # (Auto) 0.4-5.4 10 ^3/uL Monocytes # (Auto) 0-1.3 10 ^3/uL Differential Total Cells Counted 100.0 100 Neutrophils % (Manual) 34 L 37.0-80.0 Band Neutrophils % (Manual) 0 Lymphocytes % (Manual) 53 H 10.0-50.0 Monocytes % (Manual) 9 0-12 Eosinophils % (Manual) 2 0-7 Basophils % (Manual) 0 0.0-2.0 Metamyelocytes % (manual) 0 Myelocytes % (Manual) 0 Promyelocytes % (Manual) 0 Blast Cells % (Manual) 0 Reactive Lymphocytes 2 Platelet Estimate Adequate Sodium Level 143 136-145 mmol/L Potassium Level 3.6 3.5-5.1 mmol/L Chloride Level 109 H 98-107 mmol/L Carbon Dioxide Level 27 20-31 mmol/L Anion Gap 7 5-15 Blood Urea Nitrogen 12 9-23 mg/dL Creatinine 0.99 0.700-1.30 mg/dL Glomerular Filtration Rate Calc 89 >90 mL/min BUN/Creatinine Ratio 12.1 10.0-20.0 Serum Glucose 97 74-106 mg/dL Calcium Level 9.0 8.7-10.4 mg/dL Magnesium Level Pending Triglycerides Level Pending Cholesterol Level Pending LDL Cholesterol Pending HDL Cholesterol Pending Current Medications Medications (Trade) Dose Ordered Sig/Carlos Route Start Time Stop Time Status Last Admin Aspirin 325 mg ONCE ONCE PO 07/17/24 06:45 07/17/24 06:46 DC 07/17/24 06:54 Morphine Sulfate 4 mg ONCE ONCE IV 07/17/24 06:45 07/17/24 06:46 DC 07/17/24 06:54 Ondansetron HCl (Zofran) 4 mg ONCE ONCE IV 07/17/24 06:45 07/17/24 06:46 DC 07/17/24 06:54 Morphine Sulfate 2 mg ONCE ONCE IV 07/17/24 09:30 07/17/24 09:31 DC 07/17/24 10:04 Ondansetron HCl (Zofran) 4 mg ONCE ONCE IV 07/17/24 09:30 07/17/24 09:31 DC 07/17/24 10:04 [place] [address] Ph: [phone] DIAGNOSTIC IMAGING Diagnostic Imaging Report : [id number] Signed PATIENT: ALVARO DUVALL ACCT: [id number] UNIT: [id number] : 1965 LOC: OVERFLOW ROOM / BED: [address] [place] [address] AGE / SEX: 58 / M ADM STATUS: ADM IN SERVICE 1527 ORDERING PHYSICIAN: NANCY RASMUSSEN PROCEDURE(s): CXR1 - CHEST XRAY 1 VIEW REASON: cp ORDER NUMBER(s): [id number], ACCESSION NUMBER(s): [id number] XY CHEST XRAY 1 VIEW, HISTORY: cp COMPARISON: XY CHEST PORTABLE on DOS: 07/07/24 XY CHEST PORTABLE on DOS: 07/07/24 TECHNICAL DATA: 1 view of the chest was obtained. FINDINGS: Lines and tubes: None Cardiomediastinal silhouette: normal Pulmonary vasculature: normal Lung expansion: normal Lung airspace: normal Lung interstitium: normal Pleura: normal Pneumothorax: no Bones: Unremarkable Other: no IMPRESSION: No acute intrathoracic abnormality. ATED BY: DARYL KIMBROUGH MD DICTATED DATE/TIME: 07/17/241550 SIGNED BY: DARYL KIMBROUGH MD SIGNED DATE/TIME: 07/17/241550 CC: Patient alert. Complaining of chest pain. EKG reviewed shows premature ventricular contraction. Was given aspirin. Establish intravenous access. Was given morphine. Was given Zofran. Cardiac risk factors. Cardiology consultation. Possibly need echocardiogram. Reviewed his history. Explained to the patient. Continue cardiac monitoring. Time of 1ST Reevaluation: 07:05 Reevaluation 1ST: Unchanged Patient Education/Counseling: Diagnosis, Treatment Family Education/Counseling: No Family Present Additional Information Previous medical encounters reviewed: July 07, 2024 and June 18, 2024 encounters for chest pain The following tests were ordered, and results were reviewed by me: BMP, CBC, EKG, troponin Additional Information was gathered from interviewing the following independent historians: n/a I reviewed and agreed with the following test results read by other providers: n/a I discussed treatment and results with medical personnel and: Patient Departure 1 Departure Time of Disposition: 07:07 Impression: Primary Impression: Chest pain of unknown etiology Disposition: ADMITTED INPATIENT Admit to: Med Surg Condition: Guarded Critical Care Note Critical Care Time?: Yes (45 min-critical care time only) Critical care comment: Continue monitoring chest pain Stability Stability form required: No Heart Score Heart Score: Heart Score Response (Comments) Value History Moderate Suspicious 1 EKG Normal 0 Age 45-64 1 Risk Factors >3 or Hx ASHD 2 Troponin Normal limit 0 Total 4 I personally scribed for SARAI CAMPBELL MD ([email or web address]) on 07/17/24 at 06:53. Electronically submitted by Eliseo Rosenbaum ([email or web address]). I personally scribed for SARAI CAMPBELL MD ([email or web address]) on 07/17/24 at 16:08. Electronically submitted by Eliseo Rosenbaum ([email or web address]). SARAI CAMPBELL MD Jul 17, 2024 06:53
[2024-07-17] MEDS: ASPirin 325 MG TAB PO ONE (06:54)
[2024-07-17] MEDS: ONDANSETRON HCL 4 MG/2 ML VIAL IV ONE ×2 (06:54→10:04)
[2024-07-17] MEDS: MORPHINE SULFATE 4 MG/ML SYR/VIAL IV ONE (06:54)
[2024-07-17 07:04] LABS: Hematocrit 39.9 % (41.0-53.0); Hemoglobin 13.8 g/dL (13.5-17.5); Mean Corpuscular Hemoglobin 36.5 pg (28.0-32.0); Mean Corpuscular Hgb Conc. 34.6 g/dL (32.0-36.0); Mean Corpuscular Volume 105.7 fL (80.0-100.0); Platelet Count (auto) 170 10^3/uL (140-450); Red Blood Cells 3.77 10^6/uL (4.5-5.90); Red Cell Distribution Width 15.1 % (11.8-14.3); White Blood Cell 4.4 10^3/uL (4.4-10.8)
[2024-07-17 07:09] LABS: Potassium 3.6 mmol/L (3.5-5.1); Sodium 143 mmol/L (136-145)
[2024-07-17 07:10] LABS: Anion Gap 7 (5-15); Carbon Dioxide 27 mmol/L (20-31); Chloride 109 mmol/L (98-107)
[2024-07-17 07:15] LABS: BUN/Creatinine Ratio 12.1 (10.0-20.0); Blood Urea Nitrogen 12 mg/dL (9-23); Glucose 97 mg/dL (74-106)
[2024-07-17 07:37] LABS: Band Neutrophils % (manual) 0; Basophils % (manual) 0 (0.0-2.0); Blast Cells 0; Metamyelocytes % 0; Myelocytes % 0; Promyelocytes % 0
[2024-07-17 08:48] LABS: Eosinophils % (manual) 2 (0-7); Lymphocytes % (manual) 53 (10.0-50.0); Monocytes % (manual) 9 (0-12); Platelet Estimate Adequate; Reactive Lymphocytes 2
[2024-07-17] MEDS: MORPHINE SULFATE INJ 2 MG/ml SYRG IV ONE (10:04)
[2024-07-17] MEDS ORDERED: ACETAMINOPHEN 325 MG TAB PO PRN (15:30)
[2024-07-17] MEDS ORDERED: ONDANSETRON HCL 4 MG/2 ML VIAL IV PRN (15:30)
[2024-07-17] MEDS ORDERED: ALBUTEROL SULF 2.5 MG/0.5ML(0.5%) NEB SOLN NEB PRN (15:30)
[2024-07-17] MEDS ORDERED: NITROGLYCERIN 0.4 MG SL TAB SL PRN (15:30)
[2024-07-17] MEDS ORDERED: MORPHINE SULFATE 4 MG/ML SYR/VIAL IV PRN (15:30)
[2024-07-17] MEDS ORDERED: IPRATROPIUM BROM 0.5 MG/2.5ML INH SOL NEB PRN (15:30)
--- NOTE | 2024-07-17 15:33 | DVHHP2 ---
History of Present Illness Reason for Visit: Chest pain History of Present Illness Madhav Ashton is a 58-year-old male with past medical history of hypertension, hyperlipidemia, PA x2, PE on Xarelto, and CHF who presents to the ED with chest pain that radiates to the neck and left hand. Patient currently reports that the pain is 9/10 sharp and constant in nature. 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 Patient denies any recent sick contacts, recent trauma or injury, recent illnesses, ingestion of spoiled food, abdominal pain, nausea, vomiting, diarrhea, shortness of breath, lightheadedness, weakness, dizziness, fever or chills. Patient does report that he occasionally drinks. Cardiovascular: CHF, HTN, PA, hyperipidemia Pulmonary: Pulmonary embolus Past Surgical History: None Family History: Arthritis, Hypertension, Other (Dad with arthritis and hyperlipidemia and mom with hyperlipidemia, arthritis, hypertension, gout, and CHF) Smoke: No ALCOHOL: occassional Drugs: None Lives: with Family Domestic Violence: Neg Review of Systems Cardiovascular: Chest Pain Musculoskeletal: neck pain, hand pain Allergies: Coded Allergies: Ibuprofen (Verified Allergy, Unknown, 06/18/24) Penicillins (Verified Allergy, Unknown, 06/18/24) Exam Vital Signs Vital Signs Date Time Temp Pulse Resp B/P (MAP) Pulse Ox O2 Delivery O2 Flow Rate FiO2 07/17/24 13:25 68 16 111/79 (90) 97 07/17/24 07:36 97.1 97.1 General Appearance: Alert, Oriented X3, Cooperative, No acute distress HEENT: Atraumatic, PERRLA, EOMI, Mucous membr. moist/pink Respiratory: Clear to auscultation, Normal air movement Cardiovascular: Regular rate, Normal S1, Normal S2, No murmurs Abdominal: Normal bowel sounds, Soft, No tenderness, No hepatospenomegaly, No masses Extremities: No clubbing, No cyanosis, Normal pulses Skin: No significant lesion Neuro: Normal gait, Normal speech, Strength at 5/5 X4 ext, Normal tone, Sensation intact Psych/Mental Status: Mental status NL, Mood NL Labs/Xrays Labs Test 07/17/24 07:39 07/17/24 06:42 Range/Units Troponin I High Sensitivity < 3 L </=54 ng/L White Blood Count 4.4 4.4-10.8 10^3/uL Red Blood Count 3.77 L 4.5-5.90 10^6/uL Hemoglobin 13.8 13.5-17.5 g/dL Hematocrit 39.9 L 41.0-53.0 % Mean Corpuscular Volume 105.7 H 80.0-100.0 fL Mean Corpuscular Hemoglobin 36.5 H 28.0-32.0 pg Mean Corpuscular Hemoglobin Concent 34.6 32.0-36.0 g/dL Red Cell Distribution Width 15.1 H 11.8-14.3 % Platelet Count 170 140-450 10^3/uL Mean Platelet Volume 7.8 6.9-10.8 fL Neutrophils (%) (Auto) 37.0-80.0 % Lymphocytes (%) (Auto) 10.0-50.0 % Monocytes (%) (Auto) 0.0-12.0 % Basophils (%) (Auto) 0.0-2.0 % Neutrophils # (Auto) 1.6-8.6 10 ^3/uL Lymphocytes # (Auto) 0.4-5.4 10 ^3/uL Monocytes # (Auto) 0-1.3 10 ^3/uL Differential Total Cells Counted 100.0 100 Neutrophils % (Manual) 34 L 37.0-80.0 Band Neutrophils % (Manual) 0 Lymphocytes % (Manual) 53 H 10.0-50.0 Monocytes % (Manual) 9 0-12 Eosinophils % (Manual) 2 0-7 Basophils % (Manual) 0 0.0-2.0 Metamyelocytes % (manual) 0 Myelocytes % (Manual) 0 Promyelocytes % (Manual) 0 Blast Cells % (Manual) 0 Reactive Lymphocytes 2 Platelet Estimate Adequate Sodium Level 143 136-145 mmol/L Potassium Level 3.6 3.5-5.1 mmol/L Chloride Level 109 H 98-107 mmol/L Carbon Dioxide Level 27 20-31 mmol/L Anion Gap 7 5-15 Blood Urea Nitrogen 12 9-23 mg/dL Creatinine 0.99 0.700-1.30 mg/dL Glomerular Filtration Rate Calc 89 >90 mL/min BUN/Creatinine Ratio 12.1 10.0-20.0 Serum Glucose 97 74-106 mg/dL Calcium Level 9.0 8.7-10.4 mg/dL Assessment/Plan Assessment/Plan Assessment Chest pain Morbid obesity Alcohol use History of hypertension History of hyperlipidemia History of PA x2 History of PE on Xarelto History of CHF Plan Admit to tele Antiemetics Pain management Aspirin Manual differential EKG Troponin negative x2 UA Chest x-ray ordered Statin Last echo on 06/18/2024 EF 60% UDS Lipid panel TSH A1c Duo nebs Strict I&Os Daily weight Cardiology consulted by ED Home medications reconciled DVT prophylaxis-patient on Xarelto and ambulating PUD prophylaxis-Protonix Counseled patient on cessation of alcohol use Counseled patient on lifestyle modifications, diet, and exercise Plan discussed with: Patient My Orders Orders - NANCY RASMUSSEN [employer]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 Procedure Category Date Status Time Admit ADMIT 07/17/24 Transmitted 15:19 Code Status CODE 07/17/24 Transmitted 15:19 Vital Signs JAH 07/17/24 In Process 15:19 Roller Gold Leaf JAH 07/17/24 In Process 15:19 Cardiac DIET 07/17/24 Transmitted Diet-2gna,Lofat,Lochol Dinner Atorvastatin (Lipitor) PHA 07/17/24 Logged 22:00 Morphine Sulfate PHA 07/17/24 Logged Injection 15:30 Acetaminophen Tablet PHA 07/17/24 Logged (Tylenol Tablet) 15:30 Complete Blood Count LAB 07/18/24 Verified 04:00 Basic Metabolic Panel LAB 07/18/24 Verified 04:00 Magnesium LAB 07/18/24 Verified 04:00 Echo 2d Mode Cardiac US 07/17/24 Logged DOP 15:19 Nitroglycerin PHA 07/17/24 Logged Sublingual (Ntrostat 15:30 Ondansetron Hcl PHA 07/17/24 Logged (Zofran) 15:30 Electrocardigram EKG 07/18/24 Logged 04:00 Troponin-I Hs LAB 07/17/24 Logged 15:19 Cardiac JAH 07/17/24 In Process Rehabilitation - Outpa Nitroglycerin PHA 07/17/24 Logged Sublingual (Ntrostat 15:30 Morphine Sulfate PHA 07/17/24 Logged Injection 15:30 Stat Ekg For Chest JAH 07/17/24 In Process Pain 15:19 Notify Of Changes JAH 07/17/24 In Process From Base 15:19 Carpenter Repairer For JAH 07/17/24 In Process 24 Hours 15:19 Emergency Dysrhythmia JAH 07/17/24 In Process Protocol 15:19 Rhythm Strips Once JAH 07/17/24 In Process Every Shift 15:19 Oxygen By Nasal RT 07/17/24 Transmitted Cannula 15:19 Magnesium LAB 07/17/24 Logged 15:19 Drug Screen LAB 07/17/24 Logged 15:19 Lipid Panel LAB 07/17/24 Logged 15:19 Thyroid Stimulating LAB 07/17/24 Logged Hormone 15:19 Rivaroxaban Tablet PHA 07/18/24 Transmitted (Xarelto Tablet) 10:00 (Nf) Aspirin (Aspirin PHA 07/18/24 Transmitted Low Dose) 10:00 (Nf) Atorvastatin PHA 07/17/24 Transmitted Calcium 18:00 (Nf) Irbesartan PHA 07/18/24 Transmitted 10:00 (Nf) Metoprolol PHA 07/18/24 Transmitted Succinate (Metoprolol 10:00 Albuterol Medneb PHA 07/17/24 Verified (Ventolin Medneb) 15:30 Ipratropium Medneb PHA 07/17/24 Verified (Atrovent Medneb) 15:30 Date of Service: Jul 17, 2024 Billing Provider: NANCY RASMUSSEN Common Visit Codes: [id number] INP/OBS CARE (HIGH) NANCY RASMUSSEN Jul 17, 2024 15:33
--- NOTE | 2024-07-17 15:53 | DVH ---
XY CHEST XRAY 1 VIEW, HISTORY: cp COMPARISON: XY CHEST PORTABLE on DOS: 07/07/24 XY CHEST PORTABLE on DOS: 07/07/24 TECHNICAL DATA: 1 view of the chest was obtained. FINDINGS: Lines and tubes: None Cardiomediastinal silhouette: normal Pulmonary vasculature: normal Lung expansion: normal Lung airspace: normal Lung interstitium: normal Pleura: normal Pneumothorax: no Bones: Unremarkable Other: no IMPRESSION: No acute intrathoracic abnormality.
[2024-07-17] MEDS: PANTOPRAZOLE 40 MG/10 ML VIAL INJ IV SCH (16:43)
[2024-07-17 16:45] LABS: Magnesium 2.1 mg/dL (1.6-2.6)
[2024-07-17] MEDS ORDERED: PATIENTS OWN MEDICATION (Atorvastatin Calcium 1 TAB) PO SCH (18:00)
[2024-07-17 18:06] VITALS: BP 114/68; PULSE 64; RESP 17; TEMP 96.9; O2SAT 99
[2024-07-17 18:19] VITALS: BP 114/68; PULSE 64; TEMP 96.9; O2SAT 99
[2024-07-17] MEDS: NITROGLYCERIN 0.4 MG SL TAB SL PRN (20:00)
[2024-07-17 20:04] VITALS: BP 120/76; PULSE 64; RESP 16; TEMP 96.9; O2SAT 97
--- NOTE | 2024-07-17 20:14 | DVHINCON2 ---
Date Seen: Jul 17, 2024 Referring Physician MD Anusha Reason for Consultation Chest pain History of Present Illness This is a 58-year-old male patient who presents to the emergency room with chief complaint of chest pain and palpitations one day prior to emergency room arrival. The patient came to the emergency room for further evaluation. He describes the chest pain as unprovoked, intermittent, stabbing in nature, left- sided with radiation down his left arm. Associated symptoms include palpitations. He can not confirm any alleviating or aggravating factors. Initial twelve lead electrocardiogram reveals sinus rhythm with PVCs. Serial troponin levels have been negative. Significant past medical history includes congestive heart failure, hypertension, dyslipidemia, pulmonary embolism (on Xarelto), history of tobacco use and morbid obesity. The patient reports a stress test in 2021 which was normal. The patient was recently seen at this facility twice last month with similar complaints, and refused any further cardiac workup at that time during one admission, and left against medical advice during the second visit. He states he has not followed up with a cardiol ogist since then. Past Medical History Past medical history reviewed. No other significant than mentioned above. Past Surgical History Denies Family History: Arthritis G8 FATHER, FH: rheumatoid arthritis G8 MOTHER, Family History Family history reviewed. Social History Patient has a five pack-year history, quit smoking approximately five years ago Denies any alcohol use Denies any illicit drug use Allergies: Coded Allergies: Ibuprofen (Verified Allergy, Unknown, 06/18/24) Penicillins (Verified Allergy, Unknown, 06/18/24) Home Meds Active Scripts Aspirin (Aspirin Low Dose) 81 Mg Chw, 1 TAB PO DAILY for 30 Days, #30 TAB 3 Refills Prov:ROSAMARIA ANNA RESIDENT 06/20/24 Atorvastatin Calcium (ATORVASTATIN CALCIUM) 40 Mg Tab, 1 TAB PO QPM for 30 Days, #30 TAB 3 Refills Prov:ROSAMARIA ANNA RESIDENT 06/20/24 Reported Medications Albuterol Sulfate (Albuterol Sulfate Hfa) 108 Mcg/Act Aer, 2 PUFF INH Q6H 06/19/24 Rivaroxaban (Xarelto Tablet) 15 Mg Tb, 1 TAB PO DAILY 06/19/24 Metoprolol Succinate (Metoprolol Succinate Er) 100 Mg Tab, 1 TAB PO DAILY 06/19/24 Irbesartan (IRBESARTAN) 150 Mg Tab, 1 TAB PO DAILY 06/19/24 Hydrocodone-Acetaminophen (Hydrocodone/Acetaminophen 10-325 mg) 1 Tab Tab, 1 TAB PO Q6HP PRN for PAIN SCALE 7 THRU 10 06/19/24 Home Meds Home medications reviewed. Current Medications Current Medications Medications (Trade) Dose Ordered Sig/Carlos Route PRN Reason Start Time Stop Time Status Last Admin Atorvastatin Calcium (Lipitor) 40 mg HS PO 07/17/24 22:00 Cancel Morphine Sulfate 2 mg Q30MP PRN IV FOR CHEST PAIN 07/17/24 15:30 UNV Acetaminophen (Tylenol Tablet) 650 mg Q6HP PRN PO MILD PAIN (1-3 PAIN SCALE) 07/17/24 15:30 Nitroglycerin (Ntrostat Sublingual) 0.4 mg Q5MINP PRN SL FOR CHEST PAIN 07/17/24 15:30 UNV Ondansetron HCl (Zofran) 4 mg Q4HP PRN IV NAUSEA / VOMITING 07/17/24 15:30 Nitroglycerin (Ntrostat Sublingual) 0.4 mg Q5MINP PRN SL FOR CHEST PAIN 07/17/24 15:30 07/17/24 20:00 Morphine Sulfate 2 mg Q30M PRN IV FOR CHEST PAIN 07/17/24 15:30 Rivaroxaban (Xarelto Tablet) 15 mg DAILY PO 07/18/24 10:00 Patient Own Medication 1 tab DAILY PO 07/18/24 10:00 UNV Patient Own Medication 1 tab QPM PO 07/17/24 18:00 UNV Patient Own Medication 1 tab DAILY PO 07/18/24 10:00 Patient Own Medication 1 tab DAILY PO 07/18/24 10:00 UNV Albuterol (Ventolin Medneb) 2.5 mg Q4HPRN PRN NEB SHORTNESS OF BREATH 07/17/24 15:30 Ipratropium [place] (Atrovent Medneb) 0.5 mg Q4HPRN PRN NEB SHORTNESS OF BREATH 07/17/24 15:30 Pantoprazole Sodium (Protonix) 40 mg DAILY IV 07/17/24 15:45 07/17/24 16:43 Atorvastatin Calcium (Lipitor) 40 mg HS PO 07/17/24 22:00 Aspirin 81 mg DAILY PO 07/18/24 10:00 Metoprolol Succinate (Toprol Xl) 100 mg DAILY PO 07/18/24 10:00 Review of Systems Constitutional: No symptom reported Ears, Nose, & Throat: No symptom reported Eyes: No symptom reported Neurological: No symptoms reported Pulmonary/Respiratory: No symptoms reported Cardiovascular: Chest pain, palpitations Gastrointestinal: No symptom reported Genitourinary: No symptom reported Musculoskeletal: No symptom reported Skin: No symptom reported Psychiatric: No symptom reported Endocrine: No symptom reported Hematologic/Lymphatic: No symptom reported Vital Signs Vital Signs Date Time Temp Pulse Resp B/P (MAP) Pulse Ox O2 Delivery O2 Flow Rate FiO2 07/17/24 20:00 120/76 07/17/24 18:19 96.9 64 99 96.9 07/17/24 18:06 17 Physical Exam General Appearance: Cooperative. Morbidly obese Pulmonary/Respiratory: Clear, bilateral breaths sounds. Cardiovascular/Chest: Regular rate and rhythm. Peripheral Pulses: 2+ Radial (R). 2+ Radial (L). 2+ Pedal (R). 2+ Pedal (L) Abdominal Exam: Normal bowel sounds. Ankle Exam: Negative ankle edema Lower extremities: Negative lower extremity edema Neuro/Mental Status: A/OX4, coherent. Thoughts/Psych: Normal thought pattern. Appropriate mood and affect. Good judgment and insight. Appearance: No acute distress. Skin Exam: Normal inspection. Normal color. Warm and dry. Labs/Diagnostic Data Labs Test 07/17/24 07:39 07/17/24 06:42 Range/Units Troponin I High Sensitivity < 3 L </=54 ng/L Thyroid Stimulating Hormone (TSH) 1.33 0.55-4.78 uIU/mL White Blood Count 4.4 4.4-10.8 10^3/uL Red Blood Count 3.77 L 4.5-5.90 10^6/uL Hemoglobin 13.8 13.5-17.5 g/dL Hematocrit 39.9 L 41.0-53.0 % Mean Corpuscular Volume 105.7 H 80.0-100.0 fL Mean Corpuscular Hemoglobin 36.5 H 28.0-32.0 pg Mean Corpuscular Hemoglobin Concent 34.6 32.0-36.0 g/dL Red Cell Distribution Width 15.1 H 11.8-14.3 % Platelet Count 170 140-450 10^3/uL Mean Platelet Volume 7.8 6.9-10.8 fL Neutrophils (%) (Auto) 37.0-80.0 % Lymphocytes (%) (Auto) 10.0-50.0 % Monocytes (%) (Auto) 0.0-12.0 % Basophils (%) (Auto) 0.0-2.0 % Neutrophils # (Auto) 1.6-8.6 10 ^3/uL Lymphocytes # (Auto) 0.4-5.4 10 ^3/uL Monocytes # (Auto) 0-1.3 10 ^3/uL Differential Total Cells Counted 100.0 100 Neutrophils % (Manual) 34 L 37.0-80.0 Band Neutrophils % (Manual) 0 Lymphocytes % (Manual) 53 H 10.0-50.0 Monocytes % (Manual) 9 0-12 Eosinophils % (Manual) 2 0-7 Basophils % (Manual) 0 0.0-2.0 Metamyelocytes % (manual) 0 Myelocytes % (Manual) 0 Promyelocytes % (Manual) 0 Blast Cells % (Manual) 0 Reactive Lymphocytes 2 Platelet Estimate Adequate Sodium Level 143 136-145 mmol/L Potassium Level 3.6 3.5-5.1 mmol/L Chloride Level 109 H 98-107 mmol/L Carbon Dioxide Level 27 20-31 mmol/L Anion Gap 7 5-15 Blood Urea Nitrogen 12 9-23 mg/dL Creatinine 0.99 0.700-1.30 mg/dL Glomerular Filtration Rate Calc 89 >90 mL/min BUN/Creatinine Ratio 12.1 10.0-20.0 Serum Glucose 97 74-106 mg/dL Calcium Level 9.0 8.7-10.4 mg/dL Magnesium Level 2.1 1.6-2.6 mg/dL Triglycerides Level 220 H < 150 mg/dL Cholesterol Level 192 < 200 mg/dL LDL Cholesterol 119 H < 100 mg/dL HDL Cholesterol 50 40-59 mg/dL Assessment Chest pain, likely noncardiac Chronic HFpEF, NYHA class II Dyslipidemia History pulmonary embolism on Xarelto therapy Tobacco use Morbid obesity Plan/Recommendation We will proceed with the following plan/recommendations (Dr. Webb): Case discussed with . Previous transthoracic echocardiogram from 06/18/2024 reveals an EF of 60%. Given the patient's clinical presentation, negative troponin level, low HEART score, and unremarkable twelve lead electrocardiogram, doubt ACS. There is no further inpatient cardiac workup indicated at this time. The patient may follow up with Cardiology in the outpatient setting for further workup if deemed necessary. Thank you for allowing us to care for this patient. Please call with any questions or concerns. Thank you for allowing us to care for this patient. Please call with any questions or concerns. Critical care time spent: 42 minutes This medical document was created using an electronic medical record system with voice recognition software and computerized dictation system. Although this document has been carefully reviewed, there might still be some phonetic and typographical errors. Occasional wrong-word or ``sound-alike substitutions may have occurred due to the inherent limitations of voice recognition software. These areas are purely typographical due to imperfections of the software programs and do not reflect any compromise in the patient's medical care. Please read the chart carefully and recognize, using context, where these substitutions have occurred. Plan discussed with: Patient NYHA Physical activity limitations: Class2(Slight)fatigue,sob (palpitatns, angina w activityv) Date of Service: Jul 17, 2024 Billing Provider: REGINA MONTES Cardiology Common Codes: 40274-RVNBDLF INP/OBS CARE (High) Cardiology Consultation Codes: 33102-SISDDROTH CONSULT <45MIN REGINA MONTES Jul 17, 2024 20:14
[2024-07-17] MEDS: ATORVASTATIN 20 MG TAB PO SCH (20:30)
[2024-07-17] MEDS: HYDROcodone-ACET 5/325MG TAB PO ONE (20:45)
[2024-07-17 21:00] VITALS: BP 121/72; PULSE 76; RESP 15; TEMP 97.4; O2SAT 100
[2024-07-17] MEDS ORDERED: ATORVASTATIN 20 MG TAB PO SCH (22:00)
[2024-07-17 22:46] VITALS: BP 128/82; PULSE 97; RESP 16; TEMP 97.9; O2SAT 100
[2024-07-17 22:51] LABS: Urine Bacteria None Seen /hpf (None Seen)
[2024-07-17 23:08] LABS: Opiate Scree,Urine Pos (NEGATIVE)
[2024-07-17 23:09] LABS: Cannabinoid Screen, Urine Pos (NEGATIVE)
[2024-07-17 23:13] LABS: Urine Blood Negative /uL (Negative); Urine Clarity Clear (Clear); Urine Color Yellow (Yellow); Urine Mucus FEW (None Seen); Urine Protein, UAD Negative (Negative); Urine Specific Gravity 1.028 (1.001-1.035); Urine Squamous Epithelial Cell FEW /hpf (<5); Urine Urobilinogen Normal (Negative); Urine WBC 1 /HPF (0-3)
[2024-07-17 23:42] LABS: Amphetamine Screen, Urine Neg (NEGATIVE); Barbiturate Scree,Urine Neg (NEGATIVE); Benzodiazephine Screen, Urine Neg (NEGATIVE); Cocaine Screen, Urine Neg (NEGATIVE); Phencyclidine Screen, Urine Neg (NEGATIVE)
[2024-07-18] VITALS (11 sets, daily range): BP systolic 103–133; BP diastolic 57–79; PULSE 66–90; RESP 19–20; TEMP 97.5–98; O2SAT 95–100
[2024-07-18] MEDS: MORPHINE SULFATE INJ 2 MG/ml SYRG IV PRN (01:30)
[2024-07-18 07:05] LABS: Basophils # (auto) 0 10 ^3/uL (0-0.2); Basophils % (auto) 0.5 % (0.0-2.0); Eosinophils # (auto) 0.1 10 ^3/uL (0-0.8); Eosinophils % (auto) 1.9 % (0.0-7.0); Hematocrit 38.9 % (41.0-53.0); Lymphocytes # (auto) 1.5 10 ^3/uL (0.4-5.4); Lymphocytes % (auto) 29.9 % (10.0-50.0); Mean Corpuscular Hemoglobin 35.8 pg (28.0-32.0); Mean Corpuscular Hgb Conc. 33.4 g/dL (32.0-36.0); Mean Corpuscular Volume 107.1 fL (80.0-100.0); Monocytes # (auto) 0.6 10 ^3/uL (0-1.3); Monocytes % (auto) 10.9 % (0.0-12.0); Neutrophils # (auto) 2.9 10 ^3/uL (1.6-8.6); Neutrophils % (auto) 56.8 % (37.0-80.0); Nucleated Red Blood Cells % 0.2 %; Platelet Count (auto) 163 10^3/uL (140-450); Red Blood Cells 3.64 10^6/uL (4.5-5.90); Red Cell Distribution Width 15.6 % (11.8-14.3); White Blood Cell 5.1 10^3/uL (4.4-10.8)
[2024-07-18 07:09] LABS: Potassium 4.2 mmol/L (3.5-5.1); Sodium 142 mmol/L (136-145)
[2024-07-18 07:11] LABS: Calcium 9.1 mg/dL (8.7-10.4)
[2024-07-18 07:12] LABS: Chloride 109 mmol/L (98-107)
[2024-07-18 07:15] LABS: BUN/Creatinine Ratio 14.6 (10.0-20.0); Blood Urea Nitrogen 14 mg/dL (9-23); Glucose 99 mg/dL (74-106)
[2024-07-18 07:18] LABS: Anion Gap 7 (5-15); Carbon Dioxide 26 mmol/L (20-31)
[2024-07-18] MEDS ORDERED: PATIENTS OWN MEDICATION (Aspirin (Aspirin Low Dose) 1 TAB) PO SCH (10:00)
[2024-07-18] MEDS ORDERED: PATIENTS OWN MEDICATION (Metoprolol Succinate (Metoprolol Succinate Er) 1 TAB) PO SCH (10:00)
[2024-07-18] MEDS: METOPROLOL SUCCINATE XL 50 MG TAB PO SCH (10:04)
[2024-07-18] MEDS: ASPirin 81 mg TAB PO SCH (10:05)
[2024-07-18] MEDS: HYDROcodone-ACET 5/325MG TAB PO ONE (10:07)
[2024-07-18] MEDS: RIVAROXABAN 15 MG TAB PO SCH (10:08)
--- NOTE | 2024-07-18 15:11 | ECG ---
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
[2024-07-18] MEDS: HYDROcodone-ACET 10/325MG TAB PO PRN (16:24)
--- NOTE | 2024-07-18 18:24 | DVHPNRES ---
Progress Note Date Seen: Jul 18, 2024 Resident Creating Document: MARIO CHOWDHURY RESIDENT Has the PT tested + for MRSA If YES, has PT been informed?: No Medical Necessity Reason Pt with a Central, PICC or Fol: No Subjective Review of Systems This is a 58-year-old male with past medical history of hypertension, hyperlipidemia, [place] x2, PE on Xarelto, and CHF who presents to the ED with chest pain that radiates to the neck and left hand. Patient currently reports that the pain is 9/10 sharp and constant in nature. 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 Patient denies any recent sick contacts, recent trauma or injury, recent illnesses, ingestion of spoiled food, abdominal pain, nausea, vomiting, diarrhea, shortness of breath, lightheadedness, weakness, dizziness, fever or chills. Patient does report that he occasionally drinks. Initial labs showed unremarkable CBC and CMP. Troponins were negative, EKG showed sinus rhythm with no ST segment changes last echocardiogram showed an LVEF of 60%. Patient will be admitted for further assessment and management of acute chest pain to rule out ACS. Patient seen and examined at bedside. Patient reported previous history of coronary angiogram six years ago were apparently they did not place any stents at that time. Patient has been complaining of anginal episodes for the past year that has been going on and off. Despite type of pain that is described by the patient, rest of labs are unremarkable including troponins, EKG and echocardiogram. The patient keeps having angina episodes and coming to the hospital for similar reasons. Cardiology was consulted for possibility of coronary angiogram on Sunday. The patient denied fever/chills, shortness of breath, abdominal pain or any other symptoms. ROS Constitutional: Denies weight loss, fever and chills. HEENT: Denies changes in vision and hearing. Respiratory: Denies shortness of breath and cough Cardiovascular: Reports chest discomfort. Denies palpitations GI: Denies abdominal pain, nausea, vomiting and diarrhea. : Denies dysuria and urinary frequency. Musculoskeletal: Denies myalgias and joint pain Skin: Denies rash and pruritus. Neurological: Denies dizziness, headache, vision or hearing problems Objective vital signs Vital Sign Date Time Temp Pulse Resp B/P (MAP) Pulse Ox O2 Delivery O2 Flow Rate FiO2 07/18/24 16:40 97.5 66 19 118/77 (91) 96 97.5 07/18/24 10:05 Room Air 0.0 07/18/24 10:05 21 Total Intake and Output 07/17/24 07/17/24 07/18/24 15:00 23:00 07:00 Intake Total 300 ml Balance 300 ml medications Current Medications Medications Dose Ordered Sig/Carlos Route Start Time Stop Time Status Last Admin Dose Admin Atorvastatin Calcium 40 mg HS PO 07/17/24 22:00 Cancel Morphine Sulfate 2 mg Q30MP PRN IV 07/17/24 15:30 UNV Acetaminophen 650 mg Q6HP PRN PO 07/17/24 15:30 Nitroglycerin 0.4 mg Q5MINP PRN SL 07/17/24 15:30 UNV Ondansetron HCl 4 mg Q4HP PRN IV 07/17/24 15:30 Nitroglycerin 0.4 mg Q5MINP PRN SL 07/17/24 15:30 07/17/24 20:00 0.4 MG Morphine Sulfate 2 mg Q30M PRN IV 07/17/24 15:30 07/18/24 01:30 2 MG Rivaroxaban 15 mg DAILY PO 07/18/24 10:00 07/18/24 10:08 15 MG Patient Own Medication 1 tab DAILY PO 07/18/24 10:00 UNV Patient Own Medication 1 tab QPM PO 07/17/24 18:00 UNV Patient Own Medication 1 tab DAILY PO 07/18/24 10:00 Patient Own Medication 1 tab DAILY PO 07/18/24 10:00 UNV Albuterol 2.5 mg Q4HPRN PRN NEB 07/17/24 15:30 Ipratropium [place] 0.5 mg Q4HPRN PRN NEB 07/17/24 15:30 Pantoprazole Sodium 40 mg DAILY IV 07/17/24 15:45 07/18/24 10:02 40 MG Atorvastatin Calcium 40 mg HS PO 07/17/24 22:00 07/17/24 20:30 40 MG Aspirin 81 mg DAILY PO 07/18/24 10:00 07/18/24 10:05 81 MG Metoprolol Succinate 100 mg DAILY PO 07/18/24 10:00 07/18/24 10:04 100 MG Acetaminophen/ Hydrocodone Bitart 1 tab Q6HP PRN PO 07/18/24 16:15 07/18/24 16:24 1 TAB Examination Physical Examination General: Patient alert and oriented in person, place and time. Patient following commands. HEENT: Normocephalic, atraumatic, moist mucous membranes Respiratory/pulmonary: Clear lungs bilaterally, no associated crackles or wheezes. Cardiovascular: Normal heart sounds S1 and S2 with no associated murmurs Abdomen: Abdomen nondistended, there is no pain to palpation in any of the abdominal quadrants, no palpable masses. Extremities: There is no peripheral edema present at the lower extremities. Peripheral Pulses: 3+ Radial (R). 3+ Radial (L). 3+ Dorsalis pedis (R). 3+ Dorsalis pedis(L) Skin: No rashes or pruritus, there is no sacral edema present at this time. Neurological: Intact cranial nerves with no focal neurologic deficits laboratory and microbiology Laboratory Tests 07/18/24 05:30 Test 07/18/24 05:30 Range/Units Serum Glucose 99 74-106 mg/dL Problem List/Assessment/Plan Problem List/Assessment/Plan Assessment/Plan Acute chest pain, R/O ACS -initial chest x-ray showed no evidence of clear consolidations and was grossly clear bilaterally -initial EKG showed sinus rhythm with no ST segment abnormalities -troponins were negative -last echocardiogram performed on June of 2024, showed an LVEF of 60% -Cardiology on board -Patient has recurrent episodes of angina for the past 6 months. Previous hx of coronary angiogram 6 years ago that was unremarkable not needed stents -continue aspirin 81 mg daily -continue metoprolol succinate 100 mg daily -continue atorvastatin 40 mg daily -Considering possible coronary angiogram on sunday. Primary hypertension -continue on metoprolol succinate 100 mg daily -monitor blood pressure closely, blood pressure currently on normal range Acute on chronic diastolic heart failure with preserved ejection fraction (HFpEF60%) -last echocardiogram performed on 07/01 showed an LVEF of 60% -continue metoprolol succinate 100 mg daily History of [place] X2, PE -patient is currently on rivaroxaban 50 mg daily -patient states that had a coronary angiogram six years ago but no need of stents at that time. -continue aspirin 81 mg daily as well Dyslipidemia -ordered lipid panel -atorvastatin 40 mg daily Morbid obesity -outreach counselor on lifestyle modifications and diet Goals of care discussed with the patient at bedside for > 25min, FULL CODE Plan discussed with Dr. Yo Plan discussed with: Patient My Orders My Orders Orders - MARIO CHOWDHURY Procedure Category Date Status Time Hydrocodone-Acet PHA 07/18/24 In Process 10/325mg Tab ([place] 16:15 Date of Service: Jul 18, 2024 Billing Provider: CAROLE YO MD Common Visit Codes: [id number] INP/OBS CARE(HIGH) MARIO CHOWDHURY Jul 18, 2024 18:24 CAROLE YO MD Jul 18, 2024 20:06
[2024-07-19] VITALS (8 sets, daily range): BP systolic 111–133; BP diastolic 59–85; PULSE 67–75; RESP 18–20; TEMP 36.4; O2SAT 96–99
[2024-07-19 06:12] LABS: Basophils # (auto) 0 10 ^3/uL (0-0.2); Basophils % (auto) 0.6 % (0.0-2.0); Eosinophils # (auto) 0.1 10 ^3/uL (0-0.8); Lymphocytes # (auto) 1.5 10 ^3/uL (0.4-5.4); Monocytes # (auto) 0.4 10 ^3/uL (0-1.3); White Blood Cell 4.2 10^3/uL (4.4-10.8)
[2024-07-19 06:13] LABS: Anion Gap 5 (5-15); Carbon Dioxide 27 mmol/L (20-31); Chloride 107 mmol/L (98-107); Potassium 3.8 mmol/L (3.5-5.1); Sodium 139 mmol/L (136-145)
[2024-07-19 06:14] LABS: Calcium 9.1 mg/dL (8.7-10.4)
[2024-07-19 06:15] LABS: Eosinophils % (auto) 2.9 % (0.0-7.0); Hematocrit 37.1 % (41.0-53.0); Hemoglobin 12.8 g/dL (13.5-17.5); Lymphocytes % (auto) 36.6 % (10.0-50.0); Mean Corpuscular Hemoglobin 36.7 pg (28.0-32.0); Mean Corpuscular Hgb Conc. 34.4 g/dL (32.0-36.0); Mean Corpuscular Volume 106.9 fL (80.0-100.0); Monocytes % (auto) 9.8 % (0.0-12.0); Neutrophils # (auto) 2.1 10 ^3/uL (1.6-8.6); Neutrophils % (auto) 50.1 % (37.0-80.0); Nucleated Red Blood Cells % 0.1 %; Platelet Count (auto) 156 10^3/uL (140-450); Red Blood Cells 3.48 10^6/uL (4.5-5.90); Red Cell Distribution Width 15.3 % (11.8-14.3)
[2024-07-19 06:19] LABS: BUN/Creatinine Ratio 11.8 (10.0-20.0); Blood Urea Nitrogen 11 mg/dL (9-23)
[2024-07-19 06:22] LABS: Glucose 115 mg/dL (74-106)
--- NOTE | 2024-07-19 15:10 | DVHDSRES ---
Discharge Summary Date of Admission Resident Creating Document: MARIO CHOWDHURY RESIDENT Jul 17, 2024 at 15:19 Date of Discharge: Jul 19, 2024 Admitting Diagnosis Chest pain. Labs/Diagnostic Data: Laboratory Results Test 07/19/24 04:51 07/18/24 05:30 07/17/24 22:51 07/17/24 07:39 White Blood Count 4.2 10^3/uL (4.4-10.8) Red Blood Count 3.48 10^6/uL (4.5-5.90) Hemoglobin 12.8 g/dL (13.5-17.5) Hematocrit 37.1 % (41.0-53.0) Mean Corpuscular Volume 106.9 fL (80.0-100.0) Mean Corpuscular Hemoglobin 36.7 pg (28.0-32.0) Mean Corpuscular Hemoglobin Concent 34.4 g/dL (32.0-36.0) Red Cell Distribution Width 15.3 % (11.8-14.3) Platelet Count 156 10^3/uL (140-450) Mean Platelet Volume 8.1 fL (6.9-10.8) Neutrophils (%) (Auto) 50.1 % (37.0-80.0) Lymphocytes (%) (Auto) 36.6 % (10.0-50.0) Monocytes (%) (Auto) 9.8 % (0.0-12.0) Eosinophils (%) (Auto) 2.9 % (0.0-7.0) Basophils (%) (Auto) 0.6 % (0.0-2.0) Neutrophils # (Auto) 2.1 10 ^3/uL (1.6-8.6) Lymphocytes # (Auto) 1.5 10 ^3/uL (0.4-5.4) Monocytes # (Auto) 0.4 10 ^3/uL (0-1.3) Eosinophils # (Auto) 0.1 10 ^3/uL (0-0.8) Basophils # (Auto) 0 10 ^3/uL (0-0.2) Nucleated Red Blood Cells 0.1 % Sodium Level 139 mmol/L (136-145) Potassium Level 3.8 mmol/L (3.5-5.1) Chloride Level 107 mmol/L (98-107) Carbon Dioxide Level 27 mmol/L (20-31) Anion Gap 5 (5-15) Blood Urea Nitrogen 11 mg/dL (9-23) Creatinine 0.93 mg/dL (0.700-1.30) Glomerular Filtration Rate Calc 96 mL/min (>90) BUN/Creatinine Ratio 11.8 (10.0-20.0) Serum Glucose 115 mg/dL (74-106) Hemoglobin A1c 4.5 % A1C (<5.7) Calcium Level 9.1 mg/dL (8.7-10.4) Magnesium Level 2.0 mg/dL (1.6-2.6) Urine Color Yellow (Yellow) Urine Clarity Clear (Clear) Urine pH 5.0 (5.0-9.0) Urine Specific [place] 1.028 (1.001-1.035) Urine Protein Negative (Negative) Urine Ketones Negative (Negative) Urine Blood Negative /uL (Negative) Urine Nitrite Negative (Negative) Urine Bilirubin Negative (Negative) Urine Urobilinogen Normal mg/dL (Negative) Urine Leukocyte Esterase Negative /uL (Negative) Urine RBC 1 /hpf (0 - 3) Urine Microscopic WBC 1 /HPF (0-3) Urine Squamous Epithelial Cells Few /hpf (<5) Urine Bacteria None seen /hpf (None Seen) Urine Mucus Few (None Seen) Urine Glucose Normal mg/dL (Normal) Urine Opiates Screen Pos (NEGATIVE) Urine Fentanyl Screen Neg (NEGATIVE) Urine Barbiturates Screen Neg (NEGATIVE) Urine Phencyclidine Screen Neg (NEGATIVE) Urine Amphetamines Screen Neg (NEGATIVE) Urine Benzodiazepines Screen Neg (NEGATIVE) Urine Cocaine Screen Neg (NEGATIVE) Urine Cannabinoids Screen Pos (NEGATIVE) Troponin I High Sensitivity < 3 ng/L (</=54) Thyroid Stimulating Hormone (TSH) 1.33 uIU/mL (0.55-4.78) Test 07/17/24 06:42 Differential Total Cells Counted 100.0 (100) Neutrophils % (Manual) 34 (37.0-80.0) Band Neutrophils % (Manual) 0 Lymphocytes % (Manual) 53 (10.0-50.0) Monocytes % (Manual) 9 (0-12) Eosinophils % (Manual) 2 (0-7) Basophils % (Manual) 0 (0.0-2.0) Metamyelocytes % (manual) 0 Myelocytes % (Manual) 0 Promyelocytes % (Manual) 0 Blast Cells % (Manual) 0 Reactive Lymphocytes 2 Platelet Estimate Adequate Triglycerides Level 220 mg/dL (< 150) Cholesterol Level 192 mg/dL (< 200) LDL Cholesterol 119 mg/dL (< 100) HDL Cholesterol 50 mg/dL (40-59) Other Laboratory Tests 07/19/24 04:51 Brief Hx & Hospital Course: This is a 58-year-old male with past medical history of hypertension, hyperlipidemia, [place] x2, PE on Xarelto, and CHF who presents to the ED with chest pain that radiates to the neck and left hand. Patient currently reports that the pain is 9/10 sharp and constant in nature. 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 Cardiology consultation was done for ruling out ACS. As per Cardiology with the chest pain likely noncardiac, outpatient cardiac follow-up. Given EKG showed sinus syndrome with no ST segment abnormality, negative troponin, echocardiogram showed left ventricular ejection fraction of 60%, patient was advised to follow with primary care physician in outpatient setting for further evaluation. He has tried home with aspirin 80 I on metoprolol 100 mg p.o. daily, atorvastatin 40 mg p.o. patient will follow up in [place] clinic next week. Condition at Discharge: Stable Final Diagnosis/Problems List Chest pain, -further workup as outpatient with stress test Primary hypertension Acute on chronic diastolic heart failure with preserved ejection fraction (HFpEF60%) History of [place] X2, PE Dyslipidemia Morbid obesity Discharge Disposition: Home Discharge Instruct/Medications Diet: Regular Activity: No Restrictions, As Tolerated Follow Up/Referral: -follow up with PCP in 2 weeks Dc clinic in 1 week Medications: continue home meds Discharge Statement: "Patient was advised to return to the ER or call 911 if any headaches, dizziness, shortness of breath, chest pain, abdominal pain, bleeding, fevers, or worsening of medical condition. Patient was counseled about treatment plan, medications, possible side effects, patientverbalized understanding. All questions were answered to the best of my ability. This discharge took greater then 30 minutes in planning, reviewing documentation, counseling the patient, and discussing with other team members." ASSESSMENT ASSESSMENT Assessment Chest pain, likely noncardiac, Musculoskeletal Date of Service: Jul 19, 2024 Billing Provider: CAROLE NATH MD Common Visit Codes: [id number]/[id number] DISCH DAY >30min ANNABELLA HINDS RESIDENT Jul 19, 2024 15:10 CAROLE NATH MD Jul 20, 2024 09:39
== END 2024-07-19 14:50 | disposition home or self-care (01) | DRG 198 ==
LOC: ER 06:25 → OVERFLOW 15:19 → TELE-CENTR 15:22
PROVIDERS: ADMIT Internal Medicine; ATTEND Emergency Medicine
DX: I20.0 Unstable angina (principal); I50.33 Acute on chronic diastolic (congestive) heart failure; I11.0 Hypertensive heart disease with heart failure; Z79.01 Long term (current) use of anticoagulants; E66.01 Morbid (severe) obesity due to excess calories; I25.2 Old myocardial infarction; E78.5 Hyperlipidemia, unspecified; I49.3 Ventricular premature depolarization; Z86.711 Personal history of pulmonary embolism; Z88.1 Allergy status to other antibiotic agents; Z88.0 Allergy status to penicillin; Z79.899 Other long term (current) drug therapy; Z79.82 Long term (current) use of aspirin; Z79.1 Long term (current) use of non-steroidal anti-inflammatories (NSAID); Z79.891 Long term (current) use of opiate analgesic; Z82.49 Family history of ischemic heart disease and other diseases of the circulatory system; Z88.6 Allergy status to analgesic agent; Z68.41 Body mass index [BMI] 40.0-44.9, adult; Z87.891 Personal history of nicotine dependence
CPT/HCPCS: 36415; 71045; 80048; 80061; 80307; 81001; 83036; 83735; 84443; 84484; 85007; 85025; 85027; 87081; 93005; 96374; 96375; 99291; G0378; J2405; J2470

== ENCOUNTER 2024-09-01 21:12 | Inpatient (IN) | payer MEDICARE, MEDICAID ==
[~2024-09-01] VITALS: Ht 180.3 cm; Wt 142.2 kg
[2024-09-01] MEDS: ASPirin-EC 325mg tab PO ONE (01:00)
[~2024-09-01 21:12] MED LIST changes: +BUSP15TA60 PO; +FAMO-12 PO; +HYDR-3682 PO; +IPRAAER6 INH; +MELO15TA29 PO; +MIRT1TAB39 PO; +OLAN1TAB7 PO; +RIV20T PO; +TRAZ-228 PO
[2024-09-01] MEDS: NITROGLYCERIN 0.4 MG SL TAB SL ONE (21:30)
--- NOTE | 2024-09-01 21:38 | ED.PDOC ---
HPI Comments 58 y.o male presents to the ED for a chief complaint of chest pain associated with SOB that started 2 days ago. Patient reports pain is localized to the center of his chest, is non radiating, intermittent but worsened today. Patient denies any nausea, vomiting, diarrhea, abdominal pain, fever, or chills. Patient denies previous chest pain. 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 Vitals: Temp: 97 F BP: 133/96 HR: 89 SPO2: 95% RA RR: 16 Past medical history: CHF, HTN, hyperlipidemia, PE x4, Xeralto use Past surgical history: Denies HPI: Poor Historian. REVIEW OF SYSTEMS: CONSTITUTIONAL: Denies acute: fever, diaphoresis, chills, generalized weakness. HEAD: Denies acute: headache, photophobia Eyes: Denies acute: Double vision, vision loss, eye pain, eye discharge. EARS: Denies acute: tinnitus, hearing loss, ear discharge, ear pain, THROAT: Denies acute: sore throat, swelling, difficulty swallowing , pain with swallowing, change in voice. NECK: Denies acute: neck pain, neck swelling, stiff neck. HEART: Denies acute : palpitations, LUNGS: Denies acute: wheezing, cough, hemoptysis ABDOMEN: Denies acute: abdominal pain, Nausea, Vomiting, diarrhea, melena , hematemesis, hematochezia SKIN: Denies acute: rash, redness, lesions, itchiness. EXTREMITIES: Denies acute: calf pain, numbness, tingling, weakness, denies pain in extremity. Denies acute: Low back pain. Neuro: Denies acute: focal neurological deficit, motor or sensory focal neurological deficit, tremors, seizure like activity, confusion, dizziness, change in mental status, loss of bowel or bladder function, cauda equina like symptoms. : Denies acute: dysuria, hematuria, flank pain, increase in urinary frequency. PSYCH: Denies acute: hallucination, suicidal ideation, homicidal ideation. PHYSICAL EXAM: General: --[id number]------acute distress, awake and alert. Head: normocephalic, atraumatic. Neck: supple, trachea is midline, no swelling. Throat: Normal phonation. Eyes:, no erythema, no purulent discharge, no proptosis, no icterus. Heart: regular rate, regular rhythm, no significant murmur appreciated. Lungs: no apparent respiratory distress, Able to speak in full sentences. No wheezing, no rhonchi, no crackles. No stridors Clear to auscultation bilaterally. Abdomen: non tender to palpation, non distended, soft, no guarding, no rebound, + bowel sounds. Obese Neuro: Awake, Alert, oriented to name, self, situation, follows commands GCS=15. Speech is normal. Skin: no petechia, no purpura, no cyanosis, non-pale, not jaundice. Lower extremities: --trace bilateral - Pitting edema no deformity, no focal swelling, no calf TTP. Makes eye contact. moves all four extremities. Face: no apparent facial droop. Ambulating in the ED independently. ED COURSE: Chief Complaint: Chest Pain Time Seen by MD: 21:22 Primary Care Provider: unknown Reviewed Notes: Nurses Notes, Allergies Allergies: Coded Allergies: Ibuprofen (Verified Allergy, Unknown, 06/18/24) Penicillins (Verified Allergy, Unknown, 06/18/24) Home Meds Active Scripts Aspirin (Aspirin Low Dose) 81 Mg Chw, 1 TAB PO DAILY for 30 Days, #30 TAB 3 Refills Prov:BARAKROSAMARIA JARAMILLO RESIDENT 06/20/24 Atorvastatin Calcium (ATORVASTATIN CALCIUM) 40 Mg Tab, 1 TAB PO QPM for 30 Days, #30 TAB 3 Refills Prov:ROSAMARIA ANNA RESIDENT 06/20/24 Reported Medications Albuterol Sulfate (Albuterol Sulfate Hfa) 108 Mcg/Act Aer, 2 PUFF INH Q6H 06/19/24 Rivaroxaban (Xarelto Tablet) 15 Mg Tb, 1 TAB PO DAILY 06/19/24 Metoprolol Succinate (Metoprolol Succinate Er) 100 Mg Tab, 1 TAB PO DAILY 06/19/24 Irbesartan (IRBESARTAN) 150 Mg Tab, 1 TAB PO DAILY 06/19/24 Hydrocodone-Acetaminophen (Hydrocodone/Acetaminophen 10-325 mg) 1 Tab Tab, 1 TAB PO Q6HP PRN for PAIN SCALE 7 THRU 10 06/19/24 Information Source: Patient Mode of Arrival: Ambulatory Severity: Moderate Timing: Days Past Medical History PAST MEDICAL HISTORY: CHF, High Lipids, HTN, PE Surgical History: Denies all surgeries Family History Family History: Reviewed,noncontributory to illness Social History Smoker: Non-Smoker Alcohol: Denies ETOH Use Drugs: Denies Drug Use Lives In: Home EKG EKG #1: Pulse Rate (adult): 84 [place]: Normal Cardiac Rhythm: NSR Block: None Hypertrophy: None ST: Normal EKG #2: Pulse Rate (adult): 78 [place]: Normal Cardiac Rhythm: NSR Block: None Hypertrophy: None ST: Normal Was a procedure done? Was a procedure done?: No CP Differential Dx Differential Diagnosis: N/A Differential Diagnosis: Other (Ddx include but not limitied to gastritis, musculoskeletal pain, radiculopathy, atypical chest pain, dissection, aneurysm, ACS, unstable angina, hiatal hernia, GERD, anxiety, costochondritis, PE, pneumothroax, neoplasm, cardiac ischemia, drug abuse, anemia.) X-Ray, Labs, Meds, VS Vital Signs Date Time Temp Pulse Resp B/P (MAP) Pulse Ox O2 Delivery O2 Flow Rate FiO2 09/01/24 22:36 98.5 85 16 133/89 (104) 96 98.5 09/01/24 22:20 84 09/01/24 21:30 100/77 09/01/24 21:12 97.0 89 16 133/96 (108) 95 97.0 Lab Test 09/01/24 22:53 09/01/24 21:53 Range/Units Troponin I High Sensitivity < 3 L < 3 L </=54 ng/L White Blood Count 5.0 4.4-10.8 10^3/uL Red Blood Count 4.61 4.5-5.90 10^6/uL Hemoglobin 16.4 13.5-17.5 g/dL Hematocrit 48.1 41.0-53.0 % Mean Corpuscular Volume 104.4 H 80.0-100.0 fL Mean Corpuscular Hemoglobin 35.5 H 28.0-32.0 pg Mean Corpuscular Hemoglobin Concent 34.0 32.0-36.0 g/dL Red Cell Distribution Width 14.7 H 11.8-14.3 % Platelet Count 209 140-450 10^3/uL Mean Platelet Volume 7.8 6.9-10.8 fL Neutrophils (%) (Auto) 37.0-80.0 % Lymphocytes (%) (Auto) 10.0-50.0 % Monocytes (%) (Auto) 0.0-12.0 % Basophils (%) (Auto) 0.0-2.0 % Neutrophils # (Auto) 1.6-8.6 10 ^3/uL Lymphocytes # (Auto) 0.4-5.4 10 ^3/uL Monocytes # (Auto) 0-1.3 10 ^3/uL Differential Total Cells Counted 100.0 100 Neutrophils % (Manual) 26 L 37.0-80.0 Band Neutrophils % (Manual) 1 Lymphocytes % (Manual) 59 H 10.0-50.0 Monocytes % (Manual) 4 0-12 Eosinophils % (Manual) 1 0-7 Basophils % (Manual) 0 0.0-2.0 Metamyelocytes % (manual) 0 Myelocytes % (Manual) 0 Promyelocytes % (Manual) 0 Blast Cells % (Manual) 0 Reactive Lymphocytes 9 Platelet Estimate Adequate Sodium Level 142 136-145 mmol/L Potassium Level 3.9 3.5-5.1 mmol/L Chloride Level 108 H 98-107 mmol/L Carbon Dioxide Level 23 20-31 mmol/L Anion Gap 11 5-15 Blood Urea Nitrogen 12 9-23 mg/dL Creatinine 0.96 0.700-1.30 mg/dL Glomerular Filtration Rate Calc 92 >90 mL/min BUN/Creatinine Ratio 12.5 10.0-20.0 Serum Glucose 106 74-106 mg/dL Calcium Level 9.4 8.7-10.4 mg/dL Magnesium Level 2.1 1.6-2.6 mg/dL Total Bilirubin 0.5 0.2-1.0 mg/dL Aspartate Amino Transferase (AST) 38 13-40 U/L Alanine Aminotransferase (ALT) 37 7-40 U/L Alkaline Phosphatase 128 H 46-116 U/L B-Type Natriuretic Peptide 6.65 0-100 pg/mL Total Protein 7.6 5.7-8.2 g/dL Albumin 4.4 3.2-4.8 g/dL Current Medications Medications (Trade) Dose Ordered Sig/Carlos Route Start Time Stop Time Status Last Admin Aspirin (Ecotrin Enteric Coated Tablet) 325 mg ONCE ONCE PO 09/01/24 21:30 09/01/24 21:31 DC 09/01/24 01:00 Nitroglycerin (Ntrostat Sublingual) 0.4 mg ONCE ONCE SL 09/01/24 21:30 09/01/24 21:31 DC 09/01/24 21:30 Acetaminophen/ Hydrocodone Bitart ([place] 5/325MG Tab) 1 tab Q4HP PRN PO 09/01/24 23:15 09/02/24 00:44 [place] [id number] Ph: [phone] DIAGNOSTIC IMAGING Diagnostic Imaging Report : [id number] Signed PATIENT: ALVARO DUVALL ACCT: [id number] UNIT: [id number] : 1965 LOC: ER ROOM / BED: / AGE / SEX: 58 / M ADM STATUS: REG ER SERVICE 24 ORDERING PHYSICIAN: RONALD VENEGAS DO PROCEDURE(s): CXRP - CHEST PORTABLE REASON: cp/sob ORDER NUMBER(s): [id number], ACCESSION NUMBER(s): [id number] CHEST RADIOGRAPH Indication: cp/sob Technique: Single frontal view of the chest was obtained Comparison: XY CHEST XRAY 1 VIEW on DOS: 07/17/24, XY CHEST PORTABLE on DOS: 07/07/24 FINDINGS: Lines and Tubes: None Lungs: No focal consolidation. Lower lung zone linear density. Pleura: No effusion. No pneumothorax. Cardiomediastinal contours: Unremarkable Bones: No acute osseous abnormality. IMPRESSION: Left lower lung zone linear atelectasis. Otherwise, no evidence of acute cardiopulmonary disease. ATED BY: AISLINN BATISTA DO DICTATED DATE/TIME: 09/01/242141 SIGNED BY: AISLINN BATISTA DO SIGNED DATE/TIME: 09/01/242141 CC: Time of 1ST Reevaluation: 21:38 Reevaluation 1ST: Unchanged Patient Education/Counseling: Diagnosis, Treatment Family Education/Counseling: No Family Present Comments Patient presented with the above HPI.--chest pain----workup was initiated. patient was found with the above mentioned diagnosis. the following medications were ordered: please refer to order lists of meds and tests obtained by myself Dr. Venegas. Patient ED course and VS have been stabilized. Patient has been reassessed in the ED and remained in a stable condition. Pertinent incidental findings were discussed with the patient and/or family. Patient/family voices understanding and is agreeable with plan. Patient has been observed in the ED adequate length of time to insure improvement/stability. Escalation of care considered: Consideration of escalation to observation or admission Patient was ADMITTED to the medicine team for further evaluation and treatment of their presentation. All the reports of any imaging studies that were ordered by myself were reviewed by myself. Departure 1 Departure Time of Disposition: 22:35 Impression: Primary Impression: Chest pain Additional Impression: Dyspnea Disposition: ADMITTED INPATIENT Admit to: Tele Condition: Guarded Discharged With: Self Critical Care Note Critical Care Time?: No Heart Score Heart Score: Heart Score Response (Comments) Value History Slightly Suspicious 0 EKG Normal 0 Age 45-64 1 Risk Factors >3 or Hx ASHD 2 Troponin Normal limit 0 Total 3 I personally scribed for RONALD VENEGAS DO ([email or web address]) on 09/01/24 at 21:38. E lectronically submitted by Marleny Barnett ([facility]). I personally scribed for RONALD VENEGAS DO ([email or web address]) on 09/01/24 at 22:01. Elec tronically submitted by Marleny Barnett ([facility]). I personally scribed for RONALD VENEGAS DO ([email or web address]) on 09/01/24 at 22:05. Electro nically submitted by Marleny Barnett ([facility]). I personally scribed for RONALD VENEGAS DO ([email or web address]) on 09/02/24 at 00:41. Electronically submitted by Eliseo Rosenbaum ([email or web address]). RONALD VENEGAS DO September 01, 2024 21:38
--- NOTE | 2024-09-01 21:44 | DVH ---
CHEST RADIOGRAPH Indication: cp/sob Technique: Single frontal view of the chest was obtained Comparison: XY CHEST XRAY 1 VIEW on DOS: 07/17/24, XY CHEST PORTABLE on DOS: 07/07/24 FINDINGS: Lines and Tubes: None Lungs: No focal consolidation. Lower lung zone linear density. Pleura: No effusion. No pneumothorax. Cardiomediastinal contours: Unremarkable Bones: No acute osseous abnormality. IMPRESSION: Left lower lung zone linear atelectasis. Otherwise, no evidence of acute cardiopulmonary disease.
[2024-09-01 22:10] LABS: Red Cell Distribution Width 14.7 % (11.8-14.3)
[2024-09-01 22:11] LABS: Hematocrit 48.1 % (41.0-53.0); Hemoglobin 16.4 g/dL (13.5-17.5); Mean Corpuscular Hemoglobin 35.5 pg (28.0-32.0); Mean Corpuscular Volume 104.4 fL (80.0-100.0); Platelet Count (auto) 209 10^3/uL (140-450); Red Blood Cells 4.61 10^6/uL (4.5-5.90)
[2024-09-01 22:23] LABS: Basophils % (manual) 0 (0.0-2.0); Metamyelocytes % 0; Myelocytes % 0
[2024-09-01 22:24] LABS: Blast Cells 0; Promyelocytes % 0
[2024-09-01 22:27] LABS: Alanine Aminotransferase 37 U/L (7-40); Albumin 4.4 g/dL (3.2-4.8); Anion Gap 11 (5-15); Aspartate Aminotransferase 38 U/L (13-40); BUN/Creatinine Ratio 12.5 (10.0-20.0); Bilirubin, Total 0.5 mg/dL (0.2-1.0); Blood Urea Nitrogen 12 mg/dL (9-23); Calcium 9.4 mg/dL (8.7-10.4); Carbon Dioxide 23 mmol/L (20-31); Glucose 106 mg/dL (74-106); Magnesium 2.1 mg/dL (1.6-2.6); Potassium 3.9 mmol/L (3.5-5.1); Sodium 142 mmol/L (136-145); Total Protein 7.6 g/dL (5.7-8.2)
[2024-09-01 22:31] LABS: Alkaline Phosphatase 128 U/L (46-116); Chloride 108 mmol/L (98-107)
[2024-09-01 22:35] LABS: Band Neutrophils % (manual) 1; Eosinophils % (manual) 1 (0-7); Lymphocytes % (manual) 59 (10.0-50.0); Monocytes % (manual) 4 (0-12); Reactive Lymphocytes 9
[2024-09-01 22:36] LABS: Platelet Estimate Adequate
[2024-09-01] MEDS ORDERED: ALBUTEROL SULF 2.5 MG/0.5ML(0.5%) NEB SOLN NEB PRN (23:15)
[2024-09-01] MEDS ORDERED: MORPHINE SULFATE INJ 2 MG/ml SYRG IV PRN (23:15)
[2024-09-01] MEDS ORDERED: TEMAZEPAM 15 MG CAP PO PRN (23:15)
[2024-09-01] MEDS ORDERED: NITROGLYCERIN 0.4 MG SL TAB SL PRN (23:15)
[2024-09-01] MEDS ORDERED: ACETAMINOPHEN 325 MG TAB PO PRN (23:15)
[2024-09-01] MEDS ORDERED: ONDANSETRON HCL 4 MG/2 ML VIAL IV PRN (23:15)
[2024-09-01 23:25] VITALS: BP 133/89; PULSE 88; RESP 16; O2SAT 96
--- NOTE | 2024-09-01 23:25 | DVHHP2 ---
History of Present Illness Reason for Visit: Chest pain History of Present Illness 58-year-old male presents for evaluation of chest pain. Patient reports a two day history of left-sided pressure-like chest pain that radiates to his left jaw. He also associates having shortness for breath. Denies cough or fever. No dizziness. No other acute complaints reported. Past Medical History Hypertension, dyslipidemia, pulmonary embolism,? CHF Past Surgical History Denies Family History Noncontributory Smoke: No ALCOHOL: none Drugs: None Lives: with Family Review of Systems Review of Systems Review of systems are currently negative otherwise addressed in HPI. Allergies: Coded Allergies: Ibuprofen (Verified Allergy, Unknown, 06/18/24) Penicillins (Verified Allergy, Unknown, 06/18/24) Medications Current Medications Medications Dose Ordered Sig/Carlos Route Start Time Stop Time Status Last Admin Dose Admin Aspirin 81 mg DAILY PO 09/02/24 10:00 UNV Patient Own Medication 20 mg DAILY PO 09/02/24 10:00 UNV Patient Own Medication 150 mg DAILY PO 09/02/24 10:00 UNV Atorvastatin Calcium 40 mg HS PO 09/02/24 22:00 UNV Metoprolol Succinate 100 mg DAILY PO 09/02/24 10:00 UNV Albuterol 2.5 mg Q6HPRN PRN NEB 09/01/24 23:15 UNV Acetaminophen/ Hydrocodone Bitart 1 tab Q4HP PRN PO 09/01/24 23:15 UNV Temazepam 15 mg QHSP PRN PO 09/01/24 23:15 UNV Ondansetron HCl 4 mg Q4HP PRN IV 09/01/24 23:15 UNV Acetaminophen 650 mg Q6HP PRN PO 09/01/24 23:15 UNV Nitroglycerin 0.4 mg Q5MINP PRN SL 09/01/24 23:15 UNV Morphine Sulfate 2 mg Q30M PRN IV 09/01/24 23:15 UNV Exam Vital Signs Vital Signs Date Time Temp Pulse Resp B/P (MAP) Pulse Ox O2 Delivery O2 Flow Rate FiO2 09/01/24 22:36 98.5 85 16 133/89 (104) 96 98.5 Exam Gen: 58-year-old male in no apparent distress, morbidly obese Skin: Warm, dry, normal color and texture, no rash. HEENT: Normocephalic atraumatic, mucous membranes moist and pink. Neck: Cervical and supraclavicular nodes normal without enlargement, trachea is midline, thyroid gland is normal without masses. Pulmonary: Clear to auscultation and percussion bilaterally. Cardiac: Regular rate and rhythm. No murmur Abdomen: Soft, nontender, nondistended, bowel sounds present all 4 quadrants, no guarding, no rigidity, no organomegaly. Extremities: No cyanosis, clubbing, no edema Neuro: Cranial nerves II through XII grossly intact, normal affect and speech, no focal motor deficits. Labs/Xrays ORDERING PHYSICIAN: IVELISSE TELLO MD PROCEDURE(s): ECIDC - ECHO 2D MODE CARDIAC DOP REASON: chest pain r/o acs ORDER NUMBER(s): [id number], ACCESSION NUMBER(s): [id number] APPROVED REPORT EXAM: Two-dimensional and M-mode echocardiogram with Doppler and color Doppler. Blood Pressure: 130/81 mmHg INDICATION Chest Pain r/o acs RISK FACTORS Obesity: Height: 5'10, Weight: 299 DIMENSIONS LVDd 4.6 (3.8-5.7cm) LA (2D) 3.8 (1.9-4.0cm) Aortic Root 3.1 (2.0- 3.7cm) LVDs 3.0 (2.5-4.0cm) LA (MM) (1.9-4.0cm) Aortic Cusp Exc 2.0 (1.5- 2.0cm) EF (%) 55.0 (55-70%) Rt. Atrium 3.6 (1.9-4.0cm) Asc. Aorta cm IVSd 0.8 (0.7-1.1cm) RV (D) 4.0 (1.8-2.4cm) PWd 0.9 (0.7-1.1cm) Mitral Valve Mitral Mitral Stenosis E wave 0.63m/s MV Mean GR. mmHg A wave 0.65m/s MV Peak GR. mmHg E/A ratio 1.0 2D MVA cm2 DECEL Time 218ms PRESS 1/2 Time ms Aortic Valve Aortic Valve Aortic Stenosis V1 0.96m/s AO Mean GR. 3mmHg V2 1.17m/s AO Peak GR. 6mmHg LVOT Diameter 2.5 (1.8-2.4cm) Doppler INDERJIT 4.03cm2 Pulmonic Valve V2 0.77m/s Tricuspid Valve TR Velocity 2.04m/s RVSP 20mmHg Other Information Quality : Technically Limited Rhythm : Technically limited study due to .body habitus. Conclusion Technically good study. Sinus rhythm. Moderate aortic root enlargement. Valves appear to be structurally normal. EF of 60% with normal RV function. Unremarkable Doppler. No pericardial effusion masses or vegetations. SIGNED BY: KATIA OLSON Sr., MD SIGNED DATE/TIME: 06/20/24 4156 ORDERING PHYSICIAN: RONALD VENEAGS DO PROCEDURE(s): CXRP - CHEST PORTABLE REASON: cp/sob ORDER NUMBER(s): [id number], ACCESSION NUMBER(s): [id number] CHEST RADIOGRAPH Indication: cp/sob Technique: Single frontal view of the chest was obtained Comparison: XY CHEST XRAY 1 VIEW on DOS: 07/17/24, XY CHEST PORTABLE on DOS: 07/07/24 FINDINGS: Lines and Tubes: None Lungs: No focal consolidation. Lower lung zone linear density. Pleura: No effusion. No pneumothorax. Cardiomediastinal contours: Unremarkable Bones: No acute osseous abnormality. IMPRESSION: Left lower lung zone linear atelectasis. Otherwise, no evidence of acute cardiopulmonary disease. Labs Test 09/01/24 21:53 Range/Units White Blood Count 5.0 4.4-10.8 10^3/uL Red Blood Count 4.61 4.5-5.90 10^6/uL Hemoglobin 16.4 13.5-17.5 g/dL Hematocrit 48.1 41.0-53.0 % Mean Corpuscular Volume 104.4 H 80.0-100.0 fL Mean Corpuscular Hemoglobin 35.5 H 28.0-32.0 pg Mean Corpuscular Hemoglobin Concent 34.0 32.0-36.0 g/dL Red Cell Distribution Width 14.7 H 11.8-14.3 % Platelet Count 209 140-450 10^3/uL Mean Platelet Volume 7.8 6.9-10.8 fL Neutrophils (%) (Auto) 37.0-80.0 % Lymphocytes (%) (Auto) 10.0-50.0 % Monocytes (%) (Auto) 0.0-12.0 % Basophils (%) (Auto) 0.0-2.0 % Neutrophils # (Auto) 1.6-8.6 10 ^3/uL Lymphocytes # (Auto) 0.4-5.4 10 ^3/uL Monocytes # (Auto) 0-1.3 10 ^3/uL Differential Total Cells Counted 100.0 100 Neutrophils % (Manual) 26 L 37.0-80.0 Band Neutrophils % (Manual) 1 Lymphocytes % (Manual) 59 H 10.0-50.0 Monocytes % (Manual) 4 0-12 Eosinophils % (Manual) 1 0-7 Basophils % (Manual) 0 0.0-2.0 Metamyelocytes % (manual) 0 Myelocytes % (Manual) 0 Promyelocytes % (Manual) 0 Blast Cells % (Manual) 0 Reactive Lymphocytes 9 Platelet Estimate Adequate Sodium Level 142 136-145 mmol/L Potassium Level 3.9 3.5-5.1 mmol/L Chloride Level 108 H 98-107 mmol/L Carbon Dioxide Level 23 20-31 mmol/L Anion Gap 11 5-15 Blood Urea Nitrogen 12 9-23 mg/dL Creatinine 0.96 0.700-1.30 mg/dL Glomerular Filtration Rate Calc 92 >90 mL/min BUN/Creatinine Ratio 12.5 10.0-20.0 Serum Glucose 106 74-106 mg/dL Calcium Level 9.4 8.7-10.4 mg/dL Magnesium Level 2.1 1.6-2.6 mg/dL Total Bilirubin 0.5 0.2-1.0 mg/dL Aspartate Amino Transferase (AST) 38 13-40 U/L Alanine Aminotransferase (ALT) 37 7-40 U/L Alkaline Phosphatase 128 H 46-116 U/L Troponin I High Sensitivity < 3 L </=54 ng/L B-Type Natriuretic Peptide 6.65 0-100 pg/mL Total Protein 7.6 5.7-8.2 g/dL Albumin 4.4 3.2-4.8 g/dL Assessment/Plan Assessment/Plan Assessment Chest pain rule out ACS Hypertension Morbid obesity Plan Admit the patient to telemetry to the hospitalist Resume home medications Continue treatment per orders. Plan discussed with: Patient My Orders Orders - CLARKE MANCUSO Procedure Category Date Status Time Aspirin Tablet PHA 09/02/24 Logged 10:00 (Nf) Xarelto PHA 09/02/24 Logged 10:00 (Nf) Irbesartan PHA 09/02/24 Logged 10:00 Atorvastatin (Lipitor) PHA 09/02/24 Logged 22:00 Metoprolol Xl PHA 09/02/24 Logged Succinate (Toprol Xl) 10:00 Albuterol Medneb PHA 09/01/24 Logged (Ventolin Medneb) 23:15 Admit ADMIT 09/01/24 Transmitted 23:15 Hydrocodone-Acet PHA 09/01/24 Logged 5/325mg Tab ([place] 23:15 Temazepam (Restoril) PHA 09/01/24 Logged 23:15 Ondansetron Hcl PHA 09/01/24 Logged (Zofran) 23:15 Cardiac DIET 09/02/24 Transmitted Diet-2gna,Lofat,Lochol Breakfast Condition: Fair JAH 09/01/24 Transmitted 23:15 Acetaminophen Tablet PHA 09/01/24 Logged (Tylenol Tablet) 23:15 Bedrest With Bathroom [facility] 09/01/24 Transmitted Privileg 23:15 Nitroglycerin PHA 09/01/24 Logged Sublingual (Ntrostat 23:15 Morphine Sulfate PHA 09/01/24 Logged Injection 23:15 Stat Ekg For Chest [facility] 09/01/24 Transmitted Pain 23:15 Notify Md Of Changes [facility] 09/01/24 Transmitted From Base 23:15 Mechanic Helper For [facility] 09/01/24 Transmitted 24 Hours 23:15 Emergency Dysrhythmia [facility] 09/01/24 Transmitted Protocol 23:15 Rhythm Strips Once [facility] 09/01/24 Transmitted Every Shift 23:15 Oxygen By Nasal RT 09/01/24 Transmitted Cannula 23:15 Date of Service: September 01, 2024 Billing Provider: CLARKE MANCUSO Common Visit Codes: [id number] INP/OBS CARE (HIGH) CLARKE MANCUSO September 01, 2024 23:25
[2024-09-02] VITALS (10 sets, daily range): BP systolic 96–128; BP diastolic 58–99; PULSE 64–76; RESP 16–19; TEMP 97.5–98.7; O2SAT 95–99
[2024-09-02] MEDS: HYDROcodone-ACET 5/325MG TAB PO PRN (00:44)
--- NOTE | 2024-09-02 02:13 | ECG ---
[facility] Test Date: 2024-09-01 Test Time: 22:20:19 Pat Name: ALVARO DUVALL Department: ER Room: 0275T Gender: M Rescue Instructor: GONZALO : 1965 Requested By: RONALD VENEGAS Order Number: [id number] Reading MD: Oliver Webb Measurements Intervals [place] Rate: 84 P: 67 PA: 155 QRS: -56 QRSD: 108 T: 7 QT: 371 QTc: 439 Interpretive Statements Sinus rhythm Left anterior fascicular block Low voltage, precordial leads Consider anterior infarct Baseline wander in lead(s) V6 Electronically Signed On 09-07-2024 21:51:11 PDT by Oliver Webb Please click the below link to view image of tracing.
--- NOTE | 2024-09-02 02:13 | ECG ---
[facility] Test Date: 2024-09-01 Test Time: 21:21:56 Pat Name: ALVARO DUVALL Department: ED Room: 0275T Gender: M Dining Room Host: RACHAEL : 1965 Requested By: RONALD VENEGAS Order Number: [id number] Reading MD: Oliver Webb Measurements Intervals [place] Rate: 89 P: 62 MD: 161 QRS: -57 QRSD: 108 T: 30 QT: 386 QTc: 470 Interpretive Statements Sinus rhythm Left anterior fascicular block Low voltage, precordial leads Consider anterior infarct Electronically Signed On 09-07-2024 21:50:26 PDT by Oliver Webb Please click the below link to view image of tracing.
--- NOTE | 2024-09-02 02:14 | ECG ---
[facility] Test Date: 2024-09-02 Test Time: 00:15:29 Pat Name: ALVARO DUVALL Department: ER Room: 0275T Gender: M [place] Attendant: GONZALO : 1965 Requested By: RONALD VENEGAS Order Number: [id number] Reading MD: Oliver Webb Measurements Intervals [place] Rate: 78 P: 63 MT: 157 QRS: -59 QRSD: 109 T: 7 QT: 366 QTc: 417 Interpretive Statements Sinus rhythm Left anterior fascicular block Low voltage, precordial leads Consider anterior infarct Electronically Signed On 09-07-2024 21:51:51 PDT by Oliver Webb Please click the below link to view image of tracing.
[2024-09-02] MEDS: ASPirin 81 mg TAB PO SCH (10:01)
[2024-09-02] MEDS: METOPROLOL SUCCINATE XL 50 MG TAB PO SCH (10:01)
[2024-09-02] MEDS: LOSARTAN POTASSIUM 50 MG TAB PO SCH (10:02)
--- NOTE | 2024-09-02 11:26 | DVHPN2 ---
Progress Note Date Seen: September 02, 2024 Medical Necessity Reason Pt with a Central, PICC or Fol: No Subjective Patient reports: No new complaints Review of Systems: HEENT:Normal, CVS:Normal, RESPIRATORY:Normal, GI:Normal, :Normal, MSK:Normal, NEURO:Normal Objective vital signs Vital Sign Date Time Temp Pulse Resp B/P (MAP) Pulse Ox O2 Delivery O2 Flow Rate FiO2 09/02/24 10:02 110/82 09/02/24 10:01 69 09/02/24 08:36 98.7 17 96 98.7 09/02/24 06:56 Room Air 09/02/24 06:56 0 21 Total Intake and Output 09/01/24 09/01/24 09/02/24 15:00 23:00 07:00 Intake Total 350 ml Balance 350 ml medications Current Medications Medications Dose Ordered Sig/Carlos Route Start Time Stop Time Status Last Admin Dose Admin Aspirin 81 mg DAILY PO 09/02/24 10:00 09/02/24 10:01 81 MG Rivaroxaban 20 mg QPM PO 09/02/24 18:00 Losartan Potassium 50 mg DAILY PO 09/02/24 10:00 09/02/24 10:02 50 MG Atorvastatin Calcium 40 mg HS PO 09/02/24 22:00 Metoprolol Succinate 100 mg DAILY PO 09/02/24 10:00 09/02/24 10:01 100 MG Albuterol 2.5 mg Q6HPRN PRN NEB 09/01/24 23:15 Acetaminophen/ Hydrocodone Bitart 1 tab Q4HP PRN PO 09/01/24 23:15 09/02/24 06:58 1 TAB Temazepam 15 mg QHSP PRN PO 09/01/24 23:15 Ondansetron HCl 4 mg Q4HP PRN IV 09/01/24 23:15 Acetaminophen 650 mg Q6HP PRN PO 09/01/24 23:15 Nitroglycerin 0.4 mg Q5MINP PRN SL 09/01/24 23:15 Morphine Sulfate 2 mg Q30M PRN IV 09/01/24 23:15 Examination: GENERAL:Normal, HEENT:Normal, NECK:Normal, LUNGS:Normal, CVS:Normal, ABDOMEN:Normal, MSK:Normal, SKIN:Normal, NEURO:Normal, :Normal laboratory and microbiology Laboratory Tests 09/01/24 21:53 Test 09/01/24 21:53 Range/Units Serum Glucose 106 74-106 mg/dL Problem List/Assessment/Plan Problem List/Assessment/Plan #1 chest pain ?CAD: cardio eval #2 htn #3 h/o pe: on xarelto #4 morbid obesity #5 chronic diastolic heart failure advance care planning- full code- time spent 18 mins Plan discussed with: Patient Date of Service: September 02, 2024 Billing Provider: CLARKE MARY MD Common Visit Codes: [id number] INP/OBS CARE(HIGH) Secondary Visit Codes: [id number] CARE PLAN 30 MINUTES CLARKE MARY MD September 02, 2024 11:26
[2024-09-02] MEDS: PANTOPRAZOLE 40 MG TAB PO ONE (13:09)
[2024-09-02] MEDS: HYDROcodone-ACET 10/325MG TAB PO PRN (17:27)
[2024-09-02] MEDS: RIVAROXABAN 20 MG TAB PO SCH (17:27)
--- NOTE | 2024-09-02 19:07 | DVHINCON2 ---
Date Seen: September 02, 2024 Referring Physician MD Curt Reason for Consultation chest pain History of Present Illness This is a 58-year-old morbidly obese male with past medical history of hypertension, dyslipidemia, pulmonary emboli (4 times, on Xarelto) and chronic back pain came to the hospital due to intermittent chest pain since 3 days. Chest pain is localized at the left side, radiating to the back, pressure-like i n characteristic, 7/10 in intensity, which worsened with physical activity and walking but do not reports clear relieving factor. He also reports shortness of breaths, nausea and palpitation. He denies fever, vomiting, cough, any recent sick contacts, or chest trauma. Per patient he had 2 myocardial infarction in the past (once when he was 38-year-old and 2nd time when he was 56-year-old), he also had an exercise stress test 4 years back which was abnormal. He also reports that he has a chronic back pain since 2 years (due to a traumatic back injury) and since then has been using pain killer including [place]. Previous hospitalization: He was discharged on 06/20/24, 07/07/2024, and 07/17/2024 had admitted due to almost same symptoms. EKG, serial trop I and echocardiogram were within normal limits. Was recommended to follow up with Cardiology on outpatient basis. PMHx: hypertension, dyslipidemia, pulmonary emboli (4 times, on Xarelto) and chronic back pain PSHx: Not significant Family history: Noncontributory Social history: lives at home, denies smoking or any other drug use Home medication: Atorvastatin, aspirin, irbesartan, metoprolol and Xarelto Allergic history: Ibuprofen and penicillins Patient seen in his weaned at the bedside. Patient is still complaining of chest pain. Past Medical History Per H&P Past Surgical History Per H&P Family History: Arthritis G8 FATHER, FH: rheumatoid arthritis G8 MOTHER, Family History Per H&P Social History Per H&P Allergies: Coded Allergies: Ibuprofen (Verified Allergy, Unknown, 06/18/24) Penicillins (Verified Allergy, Unknown, 06/18/24) Home Meds Active Scripts Aspirin (Aspirin Low Dose) 81 Mg Chw, 1 TAB PO DAILY for 30 Days, #30 TAB 3 Refills Prov:ROSAMARIA ANNA RESIDENT 06/20/24 Atorvastatin Calcium (ATORVASTATIN CALCIUM) 40 Mg Tab, 1 TAB PO QPM for 30 Days, #30 TAB 3 Refills Prov:ROSAMARIA ANNA RESIDENT 06/20/24 Reported Medications Albuterol Sulfate (Albuterol Sulfate Hfa) 108 Mcg/Act Aer, 2 PUFF INH Q6H 06/19/24 Rivaroxaban (Xarelto Tablet) 15 Mg Tb, 1 TAB PO DAILY 06/19/24 Metoprolol Succinate (Metoprolol Succinate Er) 100 Mg Tab, 1 TAB PO DAILY 06/19/24 Irbesartan (IRBESARTAN) 150 Mg Tab, 1 TAB PO DAILY 06/19/24 Hydrocodone-Acetaminophen (Hydrocodone/Acetaminophen 10-325 mg) 1 Tab Tab, 1 TAB PO Q6HP PRN for PAIN SCALE 7 THRU 10 06/19/24 Current Medications Current Medications Medications (Trade) Dose Ordered Sig/Carlos Route PRN Reason Start Time Stop Time Status Last Admin Aspirin 81 mg DAILY PO 09/02/24 10:00 09/02/24 10:01 Rivaroxaban (Xarelto Tablet) 20 mg QPM PO 09/02/24 18:00 09/02/24 17:27 Losartan Potassium (Cozaar Tablet) 50 mg DAILY PO 09/02/24 10:00 09/02/24 10:02 Atorvastatin Calcium (Lipitor) 40 mg HS PO 09/02/24 22:00 Metoprolol Succinate (Toprol Xl) 100 mg DAILY PO 09/02/24 10:00 09/02/24 10:01 Albuterol (Ventolin Medneb) 2.5 mg Q6HPRN PRN NEB SHORTNESS OF BREATH 09/01/24 23:15 Acetaminophen/ Hydrocodone Bitart ([place] 5/325MG Tab) 1 tab Q4HP PRN PO MODERATE PAIN (4-6 PAIN SCALE) 09/01/24 23:15 09/02/24 17:03 DC 09/02/24 06:58 Temazepam (Restoril) 15 mg QHSP PRN PO FOR INSOMNIA 09/01/24 23:15 Ondansetron HCl (Zofran) 4 mg Q4HP PRN IV NAUSEA / VOMITING 09/01/24 23:15 Acetaminophen (Tylenol Tablet) 650 mg Q6HP PRN PO PAIN SCALE 1-3 OR TEMP>100.4 09/01/24 23:15 Nitroglycerin (Ntrostat Sublingual) 0.4 mg Q5MINP PRN SL FOR CHEST PAIN 09/01/24 23:15 Morphine Sulfate 2 mg Q30M PRN IV FOR CHEST PAIN 09/01/24 23:15 Pantoprazole Sodium (Protonix Tablet) 40 mg DAILY@0600 PO 09/03/24 06:00 Acetaminophen/ Hydrocodone Bitart ([place] 10/325MG Tab) 1 tab Q6HP PRN PO SEVERE PAIN (7-10 PAIN SCALE) 09/02/24 17:15 09/02/24 17:27 Review of Systems Per H&P Vital Signs Vital Signs Date Time Temp Pulse Resp B/P (MAP) Pulse Ox O2 Delivery O2 Flow Rate FiO2 09/02/24 17:16 97.7 76 16 114/76 (89) 99 97.7 09/02/24 06:56 Room Air 09/02/24 06:56 0 21 Physical Exam Per H&P Labs/Diagnostic Data Labs Test 09/02/24 06:19 09/01/24 22:53 09/01/24 21:53 Range/Units Troponin I High Sensitivity < 3 L </=54 ng/L White Blood Count 5.0 4.4-10.8 10^3/uL Red Blood Count 4.61 4.5-5.90 10^6/uL Hemoglobin 16.4 13.5-17.5 g/dL Hematocrit 48.1 41.0-53.0 % Mean Corpuscular Volume 104.4 H 80.0-100.0 fL Mean Corpuscular Hemoglobin 35.5 H 28.0-32.0 pg Mean Corpuscular Hemoglobin Concent 34.0 32.0-36.0 g/dL Red Cell Distribution Width 14.7 H 11.8-14.3 % Platelet Count 209 140-450 10^3/uL Mean Platelet Volume 7.8 6.9-10.8 fL Neutrophils (%) (Auto) 37.0-80.0 % Lymphocytes (%) (Auto) 10.0-50.0 % Monocytes (%) (Auto) 0.0-12.0 % Basophils (%) (Auto) 0.0-2.0 % Neutrophils # (Auto) 1.6-8.6 10 ^3/uL Lymphocytes # (Auto) 0.4-5.4 10 ^3/uL Monocytes # (Auto) 0-1.3 10 ^3/uL Differential Total Cells Counted 100.0 100 Neutrophils % (Manual) 26 L 37.0-80.0 Band Neutrophils % (Manual) 1 Lymphocytes % (Manual) 59 H 10.0-50.0 Monocytes % (Manual) 4 0-12 Eosinophils % (Manual) 1 0-7 Basophils % (Manual) 0 0.0-2.0 Metamyelocytes % (manual) 0 Myelocytes % (Manual) 0 Promyelocytes % (Manual) 0 Blast Cells % (Manual) 0 Reactive Lymphocytes 9 Platelet Estimate Adequate Sodium Level 142 136-145 mmol/L Potassium Level 3.9 3.5-5.1 mmol/L Chloride Level 108 H 98-107 mmol/L Carbon Dioxide Level 23 20-31 mmol/L Anion Gap 11 5-15 Blood Urea Nitrogen 12 9-23 mg/dL Creatinine 0.96 0.700-1.30 mg/dL Glomerular Filtration Rate Calc 92 >90 mL/min BUN/Creatinine Ratio 12.5 10.0-20.0 Serum Glucose 106 74-106 mg/dL Calcium Level 9.4 8.7-10.4 mg/dL Magnesium Level 2.1 1.6-2.6 mg/dL Total Bilirubin 0.5 0.2-1.0 mg/dL Aspartate Amino Transferase (AST) 38 13-40 U/L Alanine Aminotransferase (ALT) 37 7-40 U/L Alkaline Phosphatase 128 H 46-116 U/L B-Type Natriuretic Peptide 6.65 0-100 pg/mL Total Protein 7.6 5.7-8.2 g/dL Albumin 4.4 3.2-4.8 g/dL Assessment Chest pain, possibly cardiac History of multiple pulmonary emboli Hypertension Dyslipidemia Morbid obesity Chronic back pain due to traumatic injury Anxiety/depression * EKGs shows sinus rhythm, left axis deviation with no significant ST or T-wave changes * Serial trop I and BNP are within normal limits * Echo from 06/20/2024 shows moderate aortic root enlargement otherwise normal study with LVEF 60% * Reynaldo ACS score: 74 points Plan/Recommendation (Case discussed with Dr. Leos) * Continue aspirin, atorvastatin, losartan and metoprolol * Considering patient's recurrent chest pain, and low reynaldo ACS score (mild risk), we we are going to perform exercise nuclear stress test tomorrow * Keep K above 4, and Mag above 2 * Rest of plan, per primary team Thank you for allowing us to participate in this patient's care. Please call if you have any questions or concerns. Plan discussed with: Patient, Other (RN) NYHA Physical activity limitations: NA Date of Service: September 02, 2024 Billing Provider: QUYEN LEOS MD Cardiology Common Codes: [id number] INP/OBS CARE (High) PHOEBE ALANIZ RESDIENT September 02, 2024 19:07
[2024-09-02 19:27] LABS: Urine Bacteria None Seen /hpf (None Seen)
[2024-09-02 19:40] LABS: Urine Blood Negative /uL (Negative); Urine Clarity Clear (Clear); Urine Color Yellow (Yellow); Urine Mucus FEW (None Seen); Urine Protein, UAD Negative (Negative); Urine Specific Gravity 1.027 (1.001-1.035); Urine Squamous Epithelial Cell FEW /hpf (<5); Urine Urobilinogen Normal (Negative); Urine WBC < 1 /HPF (0-3)
[2024-09-02 19:45] LABS: Cannabinoid Screen, Urine Pos (NEGATIVE); Opiate Scree,Urine Pos (NEGATIVE)
[2024-09-02 19:47] LABS: Amphetamine Screen, Urine Neg (NEGATIVE); Barbiturate Scree,Urine Neg (NEGATIVE); Benzodiazephine Screen, Urine Neg (NEGATIVE); Cocaine Screen, Urine Neg (NEGATIVE); Phencyclidine Screen, Urine Neg (NEGATIVE)
[2024-09-02] MEDS: ATORVASTATIN 20 MG TAB PO SCH (22:16)
[2024-09-03] VITALS (7 sets, daily range): BP systolic 108–121; BP diastolic 67–81; PULSE 63–80; RESP 16–18; TEMP 97.5–98.4; O2SAT 96–98
[2024-09-03] MEDS: PANTOPRAZOLE 40 MG TAB PO SCH (05:48)
[2024-09-03 10:25] LABS: Hepatitis B Surface Antigen Negative (Negative)
[2024-09-03 10:45] LABS: Hepatitis C Antibody Negative (Negative)
--- NOTE | 2024-09-03 11:10 | DVHPNRES ---
Progress Note Date Seen: September 03, 2024 Resident Creating Document: PHOEBE ALANIZ RESDIENT Medical Necessity Reason Pt with a Central, PICC or Fol: No Subjective Review of Systems Patient seen and examined at the bedside. Patient is feeling better since admission. Patient was planned for the cardiology stress test, but patient refused. Cardiolite stress Test indication, benefits and side effects were discussed in detail with the patient but the patient refuses the test due to previous unpleasant stress test experience. Patient reports: No new complaints Changes from previous H/P or p: Changes Objective vital signs Vital Sign Date Time Temp Pulse Resp B/P (MAP) Pulse Ox O2 Delivery O2 Flow Rate FiO2 09/03/24 10:13 80 121/81 09/03/24 08:42 98.4 16 97 98.4 09/02/24 20:00 Room Air* 0 21 Total Intake and Output 09/02/24 09/02/24 09/03/24 15:00 23:00 07:00 Intake Total 1200 ml Output Total 900 ml Balance 1200 ml -900 ml medications Current Medications Medications Dose Ordered Sig/Carlos Route Start Time Stop Time Status Last Admin Dose Admin Aspirin 81 mg DAILY PO 09/02/24 10:00 09/03/24 10:12 81 MG Rivaroxaban 20 mg QPM PO 09/02/24 18:00 09/02/24 17:27 20 MG Losartan Potassium 50 mg DAILY PO 09/02/24 10:00 09/03/24 10:13 50 MG Atorvastatin Calcium 40 mg HS PO 09/02/24 22:00 09/02/24 22:16 40 MG Metoprolol Succinate 100 mg DAILY PO 09/02/24 10:00 09/03/24 10:13 100 MG Albuterol 2.5 mg Q6HPRN PRN NEB 09/01/24 23:15 Temazepam 15 mg QHSP PRN PO 09/01/24 23:15 Ondansetron HCl 4 mg Q4HP PRN IV 09/01/24 23:15 Acetaminophen 650 mg Q6HP PRN PO 09/01/24 23:15 Nitroglycerin 0.4 mg Q5MINP PRN SL 09/01/24 23:15 Morphine Sulfate 2 mg Q30M PRN IV 09/01/24 23:15 Pantoprazole Sodium 40 mg DAILY@0600 PO 09/03/24 06:00 09/03/24 05:48 40 MG Acetaminophen/ Hydrocodone Bitart 1 tab Q6HP PRN PO 09/02/24 17:15 09/03/24 05:48 1 TAB Examination General Appearance: Alert, Oriented X3, Cooperative, No acute distress HEENT: Atraumatic, PERRLA, EOMI, Mucous membrane moist/pink Respiratory: Clear to auscultation, Normal air movement Cardiovascular: Regular rate, Normal S1, Normal S2, No murmurs, no chest wall tenderness Abdominal: Normal bowel sounds, Soft, No tenderness, No hepatospenomegaly, No masses Extremities: No clubbing, No cyanosis, No edema, Normal pulses, No tenderness/swelling Skin: No rashes, No breakdown, No significant lesion Neuro: Normal gait, Normal speech, Strength at 5/5 X4 ext, Normal tone, Sensation intact, Cranial nerves 3-12 NL, Reflexes 2+ Psych/Mental Status: Mental status NL, Mood NL laboratory and microbiology Laboratory Tests 09/01/24 21:53 Test 09/01/24 21:53 Range/Units Serum Glucose 106 74-106 mg/dL Labs and/or images reviewed: Labs reviewed by me, Image(s) reviewed by me Problem List/Assessment/Plan Problem List/Assessment/Plan Chest pain, noncardiac, due to musculoskeletal History of multiple pulmonary emboli Hypertension Dyslipidemia Morbid obesity Chronic back pain due to traumatic injury Anxiety/depression * EKGs shows sinus rhythm, left axis deviation with no significant ST or T-wave changes * Serial trop I and BNP are within normal limits * Echo from 06/20/2024 shows moderate aortic root enlargement otherwise normal study with LVEF 60% * Reynaldo ACS score: 74 points Plan/Recommendation (Case discussed with Dr. Webb) * Continue aspirin, atorvastatin, losartan and metoprolol * Considering patient's recurrent chest pain, and low reynaldo ACS score (mild risk), patient was planned for exercise nuclear stress test today, Cardiolite stress Test indication, benefits and side effects were discussed in detail with the patient but the patient still refused the test due to previous unpleasant stress test experience * We sign off the patient, we will follow up the patient on outpatient basis (an appointment given for October 19) * Keep K above 4, and Mag above 2 * Rest of plan, per primary team Thank you for allowing us to participate in this patient's care. Please call if you have any questions or concerns. Plan discussed with: Patient, Other (RN) My Orders My Orders Orders - PHOEBE ALANIZ RESDIENT Procedure Category Date Status Time Npo (Nothing By DIET 09/03/24 Transmitted Mouth) Diet Breakfast Cardiolite Multiple NM 09/03/24 Logged 16:28 Visit Coding Cardiology RES Date of Service: September 03, 2024 Billing Provider: KATIA WEBB Sr., MD Cardiology Common Codes: 16439-USE/OBS SAME DATE (High) PHOEBE ALANIZ RESDIENT September 03, 2024 11:10
--- NOTE | 2024-09-03 11:40 | DVHDS2 ---
Discharge Summary Date of Admission September 01, 2024 at 23:15 Date of Discharge: September 03, 2024 Labs/Diagnostic Data: Laboratory Results Test 09/02/24 17:45 09/02/24 06:19 09/01/24 22:53 09/01/24 21:53 Urine Color Yellow (Yellow) Urine Clarity Clear (Clear) Urine pH 5.0 (5.0-9.0) Urine Specific [place] 1.027 (1.001-1.035) Urine Protein Negative (Negative) Urine Ketones Negative (Negative) Urine Blood Negative /uL (Negative) Urine Nitrite Negative (Negative) Urine Bilirubin Negative (Negative) Urine Urobilinogen Normal mg/dL (Negative) Urine Leukocyte Esterase Negative /uL (Negative) Urine RBC None seen /hpf (0 - 3) Urine Microscopic WBC < 1 /HPF (0-3) Urine Squamous Epithelial Cells Few /hpf (<5) Urine Bacteria None seen /hpf (None Seen) Urine Mucus Few (None Seen) Urine Glucose Normal mg/dL (Normal) Urine Opiates Screen Pos (NEGATIVE) Urine Fentanyl Screen Neg (NEGATIVE) Urine Barbiturates Screen Neg (NEGATIVE) Urine Phencyclidine Screen Neg (NEGATIVE) Urine Amphetamines Screen Neg (NEGATIVE) Urine Benzodiazepines Screen Neg (NEGATIVE) Urine Cocaine Screen Neg (NEGATIVE) Urine Cannabinoids Screen Pos (NEGATIVE) Hepatitis B Surface Antigen Negative (Negative) Hepatitis C Antibody Negative (Negative) Troponin I High Sensitivity < 3 ng/L (</=54) White Blood Count 5.0 10^3/uL (4.4-10.8) Red Blood Count 4.61 10^6/uL (4.5-5.90) Hemoglobin 16.4 g/dL (13.5-17.5) Hematocrit 48.1 % (41.0-53.0) Mean Corpuscular Volume 104.4 fL (80.0-100.0) Mean Corpuscular Hemoglobin 35.5 pg (28.0-32.0) Mean Corpuscular Hemoglobin Concent 34.0 g/dL (32.0-36.0) Red Cell Distribution Width 14.7 % (11.8-14.3) Platelet Count 209 10^3/uL (140-450) Mean Platelet Volume 7.8 fL (6.9-10.8) Neutrophils (%) (Auto) % (37.0-80.0) Lymphocytes (%) (Auto) % (10.0-50.0) Monocytes (%) (Auto) % (0.0-12.0) Basophils (%) (Auto) % (0.0-2.0) Neutrophils # (Auto) 10 ^3/uL (1.6-8.6) Lymphocytes # (Auto) 10 ^3/uL (0.4-5.4) Monocytes # (Auto) 10 ^3/uL (0-1.3) Differential Total Cells Counted 100.0 (100) Neutrophils % (Manual) 26 (37.0-80.0) Band Neutrophils % (Manual) 1 Lymphocytes % (Manual) 59 (10.0-50.0) Monocytes % (Manual) 4 (0-12) Eosinophils % (Manual) 1 (0-7) Basophils % (Manual) 0 (0.0-2.0) Metamyelocytes % (manual) 0 Myelocytes % (Manual) 0 Promyelocytes % (Manual) 0 Blast Cells % (Manual) 0 Reactive Lymphocytes 9 Platelet Estimate Adequate Sodium Level 142 mmol/L (136-145) Potassium Level 3.9 mmol/L (3.5-5.1) Chloride Level 108 mmol/L (98-107) Carbon Dioxide Level 23 mmol/L (20-31) Anion Gap 11 (5-15) Blood Urea Nitrogen 12 mg/dL (9-23) Creatinine 0.96 mg/dL (0.700-1.30) Glomerular Filtration Rate Calc 92 mL/min (>90) BUN/Creatinine Ratio 12.5 (10.0-20.0) Serum Glucose 106 mg/dL (74-106) Calcium Level 9.4 mg/dL (8.7-10.4) Magnesium Level 2.1 mg/dL (1.6-2.6) Total Bilirubin 0.5 mg/dL (0.2-1.0) Aspartate Amino Transferase (AST) 38 U/L (13-40) Alanine Aminotransferase (ALT) 37 U/L (7-40) Alkaline Phosphatase 128 U/L (46-116) B-Type Natriuretic Peptide 6.65 pg/mL (0-100) Total Protein 7.6 g/dL (5.7-8.2) Albumin 4.4 g/dL (3.2-4.8) Other Laboratory Tests 09/01/24 21:53 Brief Hx & Hospital Course: SEE DICTATED NOTE Condition at Discharge: Fair Final Diagnosis/Problems List CHEST PAIN Discharge Disposition: Home Discharge Instruct/Medications Diet: Cardiac 2g Na,low cholest Activity: No Restrictions, As Tolerated Follow Up/Referral: FU WITH PCP IN 1 WK Medications: RESUME HOME MEDS Discharge Statement: "Patient was advised to return to the ER or call 911 if any headaches, dizziness, shortness of breath, chest pain, abdominal pain, bleeding, fevers, or worsening of medical condition. Patient was counseled about treatment plan, medications, possible side effects, patientverbalized understanding. All questions were answered to the best of my ability. This discharge took greater then 30 minutes in planning, reviewing documentation, counseling the patient, and discussing with other team members." ASSESSMENT ASSESSMENT Assessment CHEST PAIN Date of Service: September 03, 2024 Billing Provider: CLARKE MARY MD Common Visit Codes: 32948-PWL/OBS DISCH DAY >30min CLARKE MARY MD September 03, 2024 11:40
--- NOTE | 2024-09-03 12:05 | DVHDS ---
DATE OF DISCHARGE: 09/03/2024 The patient is a 58-year-old gentleman who was admitted with complaints of chest pain and has history of hypertension, hyperlipidemia, PE, and CHF. HOSPITAL COURSE: The patient was seen in Cardiology consult. The patient had chest x-ray that showed left lower lobe atelectasis. The patient's troponin levels were negative for acute CT. His hepatitis panel was negative. The patient's blood pressure was stable. He is currently doing well. The patient was to undergo a Cardiolite stress test but refused the same. He will now be discharged home to resume his home medications and follow up with the primary in one week. DIAGNOSES: * Chest pain with questionable coronary artery disease. Stress test was refused. * Hypertension. * History of PE. * Morbid obesity. * Chronic diastolic heart failure. * Possible obstructive sleep apnea. I have advised the patient to have an outpatient sleep study. * Chronic pain. Time spent in discharge planning and review of plan with the patient and nursing was 37 minutes. MD RACHEL Horan/FRANCK TID: [id number] RECEIPT: [id number]
== END 2024-09-03 17:46 | disposition home or self-care (01) | DRG 303 ==
LOC: ER 21:16 → OVERFLOW 23:15 → TELE-WESTW 09-02 04:13
PROVIDERS: ADMIT Internal Medicine; ATTEND Internal Medicine
DX: I25.10 Atherosclerotic heart disease of native coronary artery without angina pectoris (principal); I50.32 Chronic diastolic (congestive) heart failure; Z68.41 Body mass index [BMI] 40.0-44.9, adult; J98.11 Atelectasis; E66.01 Morbid (severe) obesity due to excess calories; E78.5 Hyperlipidemia, unspecified; F32.A Depression, unspecified; F41.9 Anxiety disorder, unspecified; G89.29 Other chronic pain; G47.33 Obstructive sleep apnea (adult) (pediatric); I11.0 Hypertensive heart disease with heart failure; M54.9 Dorsalgia, unspecified; Z86.711 Personal history of pulmonary embolism; Z88.6 Allergy status to analgesic agent; Z88.0 Allergy status to penicillin; Z79.82 Long term (current) use of aspirin; Z79.899 Other long term (current) drug therapy; Z79.891 Long term (current) use of opiate analgesic; Z79.1 Long term (current) use of non-steroidal anti-inflammatories (NSAID); I25.2 Old myocardial infarction; Z82.61 Family history of arthritis
CPT/HCPCS: 36415; 71045; 80053; 80307; 81001; 83735; 83880; 84484; 85007; 85027; 86803; 87340; 93005; G0378

== ENCOUNTER 2024-09-20 06:47 | Inpatient (IN) | payer MEDICARE, MEDICAID ==
[~2024-09-20] VITALS: Ht 177.8 cm; Wt 146.5 kg
[2024-09-20] VITALS (14 sets, daily range): BP systolic 116–142; BP diastolic 77–98; PULSE 87–113; RESP 18–20; TEMP 97.7–98.9; O2SAT 96–100
[~2024-09-20 06:47] MED LIST changes: -RIV15T PO
--- NOTE | 2024-09-20 07:01 | ECG ---
[facility] Test Date: 2024-09-20 Test Time: 06:53:59 Pat Name: ALVARO DUVALL Department: ED Room: 0208T Gender: M Linen Manager: SHENG : 1965 Requested By: JOANIE LOZOYA Order Number: [id number] Reading MD: Oliver Webb Measurements Intervals [place] Rate: 120 P: -77 MD: 141 QRS: 65 QRSD: 103 T: 262 QT: 284 QTc: 402 Interpretive Statements Ectopic atrial tachycardia, unifocal Ventricular premature complex Low voltage, precordial leads Probable anteroseptal infarct, old Borderline T abnormalities, inferior leads Electronically Signed On 09-21-2024 16:47:46 PDT by Oliver Webb Please click the below link to view image of tracing.
--- NOTE | 2024-09-20 07:19 | ED.PDOC ---
HPI Comments 58M presents to the ER w/ prior MHx of HTN, PE, Diastolic HF, Sleep Apnea, CVA and the c/c of CP. Pt reports on been admission on September 01, July 17, June 30, June 16, all being in 2024. Pt states on having a [place]OW[place], Gen Weak, Blurred Vision, Dizziness, and CP which radiates to the left side and the back. Pt does not on having SOB and has a current O2 of 94%. Pt was offered a stress test last time here but refused. Pt note on taking 2 Nitros at 0540 this morning. Pt had a pain type of an 11/16. No other associated symptoms, modifiers, recent injuries or sick contacts present at this time. Chief Complaint: Chest Pain Time Seen by MD: 06:50 Primary Care Provider: unknown Reviewed Notes: Nurses Notes, Medications, Allergies Allergies: Coded Allergies: Ciprofloxacin (Verified Allergy, Unknown, 09/20/24) Ibuprofen (Verified Allergy, Unknown, 06/18/24) Penicillins (Verified Allergy, Unknown, 06/18/24) Home Meds Active Scripts Aspirin (Aspirin Low Dose) 81 Mg Chw, 1 TAB PO DAILY for 30 Days, #30 TAB 3 Refills Prov:WILLIE ANNARA RESIDENT 06/20/24 Reported Medications Atorvastatin Calcium (ATORVASTATIN CALCIUM) 40 Mg Tab, 1 TAB PO QPM for 90 Days, #90 09/03/24 Rivaroxaban (Xarelto Tablet) 20 Mg Tb, 1 TAB PO DAILY for 9 Days, #9 09/03/24 Famotidine (Famotidine) 20 Mg Tab, 1 TAB PO DAILYPRN for 30 Days, #30 09/03/24 Meloxicam (Meloxicam) 15 Mg Tab, 1 TAB PO DAILY for 30 Days, #30 09/03/24 Ipratropium-Albuterol (COMBIVENT RESPIMAT) Respimat Aer, 1 PUFF INH QID for 30 Days, #4 09/03/24 Trazodone Hcl (Trazodone Hcl) 100 Mg Tab, 1 TAB PO HS for 90 Days, #90 09/03/24 Buspirone Hcl (Buspirone Hcl) 15 Mg Tab, 1 TAB PO DAILY for 90 Days, #90 09/03/24 Olanzapine (OLANZAPINE) 5 Mg Tab, 1 TAB PO HS for 30 Days, #30 09/03/24 Mirtazapine (Mirtazapine Oral Disintegrating Tablet) 30 Mg Tab, 1 TAB PO HS for 30 Days, #30 09/03/24 Hydroxyzine Hcl (Hydroxyzine Hcl) 25 Mg Tab, 1 TAB PO DAILYPRN for 30 Days, #30 09/03/24 Albuterol Sulfate (Albuterol Sulfate Hfa) 108 Mcg/Act Aer, 2 PUFF INH Q6H 06/19/24 Metoprolol Succinate (Metoprolol Succinate Er) 100 Mg Tab, 1 TAB PO DAILY 06/19/24 Irbesartan (IRBESARTAN) 150 Mg Tab, 1 TAB PO DAILY 06/19/24 Hydrocodone-Acetaminophen (Hydrocodone/Acetaminophen 10-325 mg) 1 Tab Tab, 1 TAB PO Q6HP PRN for PAIN SCALE 7 THRU 10 06/19/24 Information Source: Patient Mode of Arrival: Ambulatory Severity: Moderate Timing: Days Duration: Since onset, Days Prehospital treatment: None Location: Chest (L) Radiation: Back Quality: Aching Onset: At Rest Cardiac Risk Factors: Smoker, HTN, Diabetes PE Risk Factors: None History of: Similar pain in past, DVT/PE Associated Signs and Symptoms: SOB, Back Pain Past Medical History PAST MEDICAL HISTORY: CHF (Diastolic), CVA, HTN, PE Past Medical History (Other): Sleep Apnea Surgical History: Denies all surgeries Family History Family History: Reviewed,noncontributory to illness, Unknown Social History Smoker: Non-Smoker Alcohol: Denies ETOH Use Drugs: Denies Drug Use Lives In: Home Constitutional: reports: weakness; denies: chills, diaphoresis, fatigue, fever, malaise, sweats, others EENTM: reports: blurred vision; denies: double vision, ear bleeding, ear discharge, ear drainage, ear pain, ear ringing, eye pain, eye redness, hearing loss, mouth pain, mouth swelling, nasal discharge, nose bleeding, nose congestion, nose pain, photophobia, tearing, throat pain, throat swelling, voice changes, others Respiratory: reports: shortness of breath; denies: cough, hemoptysis, orthopnea, SOB at rest, SOB with excertion, stridor, wheezing, others Cardiovascular: reports: chest pain; denies: dizzy spells, diaphoresis, Dyspnea on exertion, edema, irregular heart beat, left arm pain, lightheadedness, palpitations, PND, syncope, others Gastrointestinal: denies: abdomen distended, abdominal pain, blood streaked bow els, constipated, diarrhea, dysphagia, difficulty swallowing, hematemesis, melena, nausea, poor appetite, poor fluid intake, rectal bleeding, rectal pain, vomiting, others Genitourinary: denies: burning, dysuria, flank pain, frequency, hematuria, incontinence, penile discharge, penile sore, pain, testicle pain, testicle swelling, urgency, others Neurological: reports: headache; denies: dizziness, fainting, left sided numbness, left sided weakness, numbness, paresthesia, pre-existing deficit, right sided numbness, right sided weakness, seizure, speech problems, tingling, tremors, weakness, others Musculoskeletal: reports: back pain; denies: gout, joint pain, joint swelling, muscle pain, muscle stiffness, neck pain, others Integumetry: denies: bruises, change in color, change in hair/nails, dryness, laceration, lesions, lumps, rash, wounds, others Allergic/Immunocompromised: denies: Difficulty Healing, Frequent Infections, Hives, Itching, others Hematologic/Lymphatic: denies: anemia, blood clots, easy bleeding, easy bruising, swollen glands, others Endocrine: denies: excessive hunger, excessive sweating, excessive thirst, excessive urination, flushing, intolerance to cold, intolerance to heat, u nexplained weight gain, unexplained weight loss, others Psychiatric: denies: anxiety, bipolar disorder, depression, hopeless, panic disorder, schizophrenia, sleepless, suicidal, others All Other Systems: Reviewed and Negative Physical Exam General Appearance: No Apparent Distress, Normal HEENT: Normal ENT Inspection, Pharynx Normal, TMs Normal Neck: Full Range of Motion, Non-Tender, Normal, Normal Inspection Respiratory: Chest Non-Tender, Lungs Clear, No Accessory Muscle Use, No Respiratory Distress, Normal Breath Sounds Cardiovascular: No Edema, No JVD, No Murmur, No Gallop, Normal Peripheral P ulses, Regular Rate/Rhythm Breast Exam: Deferred Gastrointestinal: No Organomegaly, Non Tender, No Pulsatile Mass, Normal Bowel Sounds, Soft Genitalia: Deferred Pelvic: Deferred Rectal: Deferred Extremities: No calf tenderness, Normal capillary refill, Normal inspection, Normal range of motion, Non-tender, No pedal edema Musculoskeletal : Apperance: Normal Neurologic: Alert, movie critic II-XII nml as Tested, No Motor Deficits, Normal Affect, Normal Mood, No Sensory Deficits Cerebellar Function: Normal Reflexes: Normal Skin: Dry, Normal Color, Warm Lymphatic: No Adenopathy EKG EKG : Pulse Rate (adult): 121 [place]: Normal Cardiac Rhythm: ST Block: None Hypertrophy: None ST: Normal Comments Scattered T Waves Was a procedure done? Was a procedure done?: No CP Differential Dx Differential Diagnosis: Angina, Anxiety / Panic Attack, Pulmonary Embolus Differential Diagnosis: CHF, Medical NonCompliance Differential Diagnosis: Angina, Aortic dissection, Chest Wall Pain, C ostochondritis, Esophageal reflux/spasm, Myocardial Infarction, Pericarditis, Pneumonia, Pneumothorax, Pulmonary Embolus X-Ray, Labs, Meds, VS Vital Signs Date Time Temp Pulse Resp B/P (MAP) Pulse Ox O2 Delivery O2 Flow Rate FiO2 09/20/24 07:25 100 09/20/24 07:25 98.4 100 18 116/80 (92) 94 98.4 09/20/24 07:19 121 09/20/24 06:53 120 09/20/24 06:48 98.2 104 18 109/91 (97) 94 98.2 Lab Test 09/20/24 07:04 Range/Units White Blood Count 5.3 4.4-10.8 10^3/uL Red Blood Count 4.25 L 4.5-5.90 10^6/uL Hemoglobin 14.8 13.5-17.5 g/dL Hematocrit 43.3 41.0-53.0 % Mean Corpuscular Volume 101.9 H 80.0-100.0 fL Mean Corpuscular Hemoglobin 34.8 H 28.0-32.0 pg Mean Corpuscular Hemoglobin Concent 34.2 32.0-36.0 g/dL Red Cell Distribution Width 13.7 11.8-14.3 % Platelet Count 188 140-450 10^3/uL Mean Platelet Volume 8.0 6.9-10.8 fL Neutrophils (%) (Auto) 38.4 37.0-80.0 % Lymphocytes (%) (Auto) 50.3 H 10.0-50.0 % Monocytes (%) (Auto) 9.6 0.0-12.0 % Eosinophils (%) (Auto) 1.1 0.0-7.0 % Basophils (%) (Auto) 0.6 0.0-2.0 % Neutrophils # (Auto) 2.0 1.6-8.6 10 ^3/uL Lymphocytes # (Auto) 2.7 0.4-5.4 10 ^3/uL Monocytes # (Auto) 0.5 0-1.3 10 ^3/uL Eosinophils # (Auto) 0.1 0-0.8 10 ^3/uL Basophils # (Auto) 0 0-0.2 10 ^3/uL Nucleated Red Blood Cells 0.0 % Sodium Level 142 136-145 mmol/L Potassium Level 3.5 3.5-5.1 mmol/L Chloride Level 108 H 98-107 mmol/L Carbon Dioxide Level 21 20-31 mmol/L Anion Gap 13 5-15 Blood Urea Nitrogen 10 9-23 mg/dL Creatinine 0.99 0.700-1.30 mg/dL Glomerular Filtration Rate Calc 89 >90 mL/min BUN/Creatinine Ratio 10.1 10.0-20.0 Serum Glucose 111 H 74-106 mg/dL Calcium Level 9.7 8.7-10.4 mg/dL Troponin I High Sensitivity < 3 L </=54 ng/L Current Medications Medications (Trade) Dose Ordered Sig/Carlos Route Start Time Stop Time Status Last Admin Aspirin 162 mg ONCE ONCE PO 09/20/24 07:00 09/20/24 07:03 DC 09/20/24 07:32 Time of 1ST Reevaluation: 07:20 Reevaluation 1ST: Unchanged Patient Education/Counseling: Diagnosis, Treatment, Prognosis, Need For Follow Up Family Education/Counseling: No Family Present Comments pt has a plethora of symptoms, mostly due to answering yes to questions. these include blurry vision, weakness, cp. he does have a history of CAD and has been admitted many times, but the last time, he refused a stress test. pt now agrees to have the stress test. he states that he can do the treadmill and walks up and down stairs regularly. he does not have visual field defects or blurry vision here. head ct is unremarkable,. he may have had a TIA and he will need to have s tress test this time to assess his chest pain Departure 1 Departure Time of Disposition: 08:07 Impression: Primary Impression: Unstable angina Additional Impressions: TIA (transient ischemic attack) Medical non-compliance Tobacco abuse Disposition: ADMITTED INPATIENT Admit to: Tele Condition: Serious Discharged With: Self Critical Care Note Critical Care Time?: Yes (45 min-critical care time only) Critical care comment: due to concerns for deterioration of patient's condition, the care required my h ighest level of attention and readiness. i assessed the patient's condition, reviewed relevant documents, communicated with medical personnel, ordered the proper tests and treatments, reassessed for results and response to treatments, spoke to family and consultants and formulated a plan of care Stability Stability form required: No Heart Score Heart Score: Heart Score Response (Comments) Value History Moderate Suspicious 1 EKG Repolarization Disturb 1 Age 45-64 1 Risk Factors >3 or Hx ASHD 2 Troponin Normal limit 0 Total 5 I personally scribed for JOANIE LOZOYA MD ([email or web address]) on 09/20/24 at 07:19. Electronically submitted by Mau Venegas ([email or web address]). JOANIE LOZOYA MD Sep 20, 2024 07:19
[2024-09-20 07:30] LABS: Basophils # (auto) 0 10 ^3/uL (0-0.2); Eosinophils # (auto) 0.1 10 ^3/uL (0-0.8); Lymphocytes # (auto) 2.7 10 ^3/uL (0.4-5.4); Monocytes # (auto) 0.5 10 ^3/uL (0-1.3)
[2024-09-20 07:31] LABS: Basophils % (auto) 0.6 % (0.0-2.0); Eosinophils % (auto) 1.1 % (0.0-7.0); Hematocrit 43.3 % (41.0-53.0); Hemoglobin 14.8 g/dL (13.5-17.5); Lymphocytes % (auto) 50.3 % (10.0-50.0); Mean Corpuscular Hemoglobin 34.8 pg (28.0-32.0); Mean Corpuscular Hgb Conc. 34.2 g/dL (32.0-36.0); Mean Corpuscular Volume 101.9 fL (80.0-100.0); Monocytes % (auto) 9.6 % (0.0-12.0); Neutrophils % (auto) 38.4 % (37.0-80.0); Platelet Count (auto) 188 10^3/uL (140-450); Red Blood Cells 4.25 10^6/uL (4.5-5.90); Red Cell Distribution Width 13.7 % (11.8-14.3); White Blood Cell 5.3 10^3/uL (4.4-10.8)
[2024-09-20] MEDS: ASPirin 81 mg TAB PO ONE (07:32)
[2024-09-20 07:36] LABS: Anion Gap 13 (5-15); Carbon Dioxide 21 mmol/L (20-31); Potassium 3.5 mmol/L (3.5-5.1); Sodium 142 mmol/L (136-145)
[2024-09-20 07:37] LABS: Calcium 9.7 mg/dL (8.7-10.4)
[2024-09-20 07:38] LABS: Chloride 108 mmol/L (98-107)
--- NOTE | 2024-09-20 07:40 | DVH ---
CHEST RADIOGRAPH Indication: cp Technique: Single frontal view of the chest was obtained Comparison: XY CHEST PORTABLE on DOS: 09/01/24, XY CHEST XRAY 1 VIEW on DOS: 07/17/24, XY CHEST PORTABL E on DOS: 07/07/24 FINDINGS: The cardiac silhouette is unremarkable. The lungs demonstrate perihilar airspace opacities. The pulmo nary vasculature is prominent. There is no pleural effusion. There is no pneumothorax. IMPRESSION: 1. vascular congestion and bilateral perihilar airspace opacities.Pulmonary
[2024-09-20 07:42] LABS: BUN/Creatinine Ratio 10.1 (10.0-20.0); Blood Urea Nitrogen 10 mg/dL (9-23)
--- NOTE | 2024-09-20 07:43 | DVH ---
CT HEAD WITHOUT CONTRAST Indication: head ache, weakness, blurred vision EXAM DATE: 09/20/2024 07:13 AM COMPARISON: None TECHNIQUE: CT of the head without intravenous contrast. RADIATION DOSE: CTDIvol: 54 mGy, DLP: 1075 mGy*cm FINDINGS: There is no intracranial hemorrhage. There is no extra-axial fluid, mass, mass effect or midline shif t. The ventricles are midline and normal in size. Basilar cisterns are patent. Olmstead-white differentia tion is maintained. The paranasal sinuses and mastoids are well-pneumatized. Imaged portion of the orbits are unremarkabl e. IMPRESSION: 1. No intracranial hemorrhage or mass effect.
[2024-09-20 07:44] LABS: Glucose 111 mg/dL (74-106)
--- NOTE | 2024-09-20 07:53 | ECG ---
[facility] Test Date: 2024-09-20 Test Time: 07:52:05 Pat Name: ALVARO DUVALL Department: ER Room: 0208T Gender: M Eradicator: TARIK : 1965 Requested By: JOANIE LOZOYA Order Number: [id number] Reading MD: Oliver Webb Measurements Intervals [place] Rate: 103 P: 58 LA: 143 QRS: -46 QRSD: 105 T: 34 QT: 354 QTc: 464 Interpretive Statements Sinus tachycardia Left anterior fascicular block Low voltage, precordial leads Probable anteroseptal infarct, old Electronically Signed On 09-21-2024 16:47:49 PDT by Oliver Webb Please click the below link to view image of tracing.
[2024-09-20] MEDS ORDERED: NITROGLYCERIN 0.4 MG SL TAB SL PRN ×2 (11:30)
[2024-09-20] MEDS ORDERED: ACETAMINOPHEN 325 MG TAB PO PRN (11:30)
[2024-09-20] MEDS ORDERED: MORPHINE SULFATE 4 MG/ML SYR/VIAL IV PRN (11:30)
--- NOTE | 2024-09-20 11:35 | DVHHP2 ---
History of Present Illness Reason for Visit: Chest pain History of Present Illness Madhav Ashton is a 58-year-old male with past medical history of hypertension, hyperlipidemia, diabetes, CHF, PE, and CVA with left-sided deficits who presents to the ED with chest pain that is radiating to the back including headache with generalized weakness with blurred vision and dizziness. Patient reports that his chest pain is 8/10 pressure like sharp and constant. He states it has been ongoing for 3 days. Patient also endorses that he was here recently and states he did not refuses stress test but that the physician and his benefits assistant stated that he did not need the stress test. Patient also reports that he stopped eating pork for the last 3 months. He also states that he has been taking Xarelto on and off with no recent. 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 He states that he took some [place] with no relief. Patient denies any urinary symptoms, recent trauma or injury, recent sick contacts, recent ingestion of spoiled food, recent travels, abdominal pain, nausea, vomiting, diarrhea, urinary symptoms, or lightheadedness. Patient states that shortly after he took the J and J vaccine during COVID is when his symptoms started. 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: CVA (With left-sided hemiparesis) Endocrine: Diabetes Past Medical History Sleep apnea Past Surgical History: None Family History: Arthritis, Hypertension, Other (Mom with hypertension and dad with arthritis) Smoke: Quit (Quit 1 month ago) ALCOHOL: occassional Drugs: None Lives: with Family Domestic Violence: Neg Review of Systems Constitutional: Yes: Weakness, Other (Headache and dizziness) Eyes: Vision change Cardiovascular: Chest Pain Musculoskeletal: other (Right flank pain) Allergies: Coded Allergies: Ciprofloxacin (Verified Allergy, Unknown, 09/20/24) Ibuprofen (Verified Allergy, Unknown, 06/18/24) Penicillins (Verified Allergy, Unknown, 06/18/24) Medications Current Medications Medications Dose Ordered Sig/Carlos Route Start Time Stop Time Status Last Admin Dose Admin Aspirin 81 mg DAILY PO 09/21/24 10:00 UNV Atorvastatin Calcium 40 mg HS PO 09/20/24 22:00 UNV Morphine Sulfate 2 mg Q30MP PRN IV 09/20/24 11:30 UNV Acetaminophen 650 mg Q6HP PRN PO 09/20/24 11:30 UNV Nitroglycerin 0.4 mg Q5MINP PRN SL 09/20/24 11:30 UNV Ondansetron HCl 4 mg Q4HP PRN IV 09/20/24 11:30 UNV Nitroglycerin 0.4 mg Q5MINP PRN SL 09/20/24 11:30 UNV Morphine Sulfate 2 mg Q30M PRN IV 09/20/24 11:30 UNV Ceftriaxone Sodium 50 ml @ 100 mls/hr DAILY@09 IV 09/20/24 11:30 UNV Exam Vital Signs Vital Signs Date Time Temp Pulse Resp B/P (MAP) Pulse Ox O2 Delivery O2 Flow Rate FiO2 09/20/24 09:23 98.4 90 18 127/83 (98) 95 98.4 General Appearance: Alert, Oriented X3, Cooperative, No acute distress HEENT: Atraumatic, PERRLA, EOMI, Mucous membr. moist/pink Respiratory: Clear to auscultation, Normal air movement Cardiovascular: Normal S1, Normal S2, No murmurs Abdominal: Normal bowel sounds, Soft, No tenderness, No hepatospenomegaly, No masses Extremities: No clubbing, No cyanosis, Normal pulses Skin: No significant lesion Neuro: Normal speech, Strength at 5/5 X4 ext, Normal tone, Sensation intact Psych/Mental Status: Mental status NL, Mood NL Labs/Xrays Labs Test 09/20/24 10:31 09/20/24 07:04 Range/Units Troponin I High Sensitivity < 3 L </=54 ng/L White Blood Count 5.3 4.4-10.8 10^3/uL Red Blood Count 4.25 L 4.5-5.90 10^6/uL Hemoglobin 14.8 13.5-17.5 g/dL Hematocrit 43.3 41.0-53.0 % Mean Corpuscular Volume 101.9 H 80.0-100.0 fL Mean Corpuscular Hemoglobin 34.8 H 28.0-32.0 pg Mean Corpuscular Hemoglobin Concent 34.2 32.0-36.0 g/dL Red Cell Distribution Width 13.7 11.8-14.3 % Platelet Count 188 140-450 10^3/uL Mean Platelet Volume 8.0 6.9-10.8 fL Neutrophils (%) (Auto) 38.4 37.0-80.0 % Lymphocytes (%) (Auto) 50.3 H 10.0-50.0 % Monocytes (%) (Auto) 9.6 0.0-12.0 % Eosinophils (%) (Auto) 1.1 0.0-7.0 % Basophils (%) (Auto) 0.6 0.0-2.0 % Neutrophils # (Auto) 2.0 1.6-8.6 10 ^3/uL Lymphocytes # (Auto) 2.7 0.4-5.4 10 ^3/uL Monocytes # (Auto) 0.5 0-1.3 10 ^3/uL Eosinophils # (Auto) 0.1 0-0.8 10 ^3/uL Basophils # (Auto) 0 0-0.2 10 ^3/uL Nucleated Red Blood Cells 0.0 % Sodium Level 142 136-145 mmol/L Potassium Level 3.5 3.5-5.1 mmol/L Chloride Level 108 H 98-107 mmol/L Carbon Dioxide Level 21 20-31 mmol/L Anion Gap 13 5-15 Blood Urea Nitrogen 10 9-23 mg/dL Creatinine 0.99 0.700-1.30 mg/dL Glomerular Filtration Rate Calc 89 >90 mL/min BUN/Creatinine Ratio 10.1 10.0-20.0 Serum Glucose 111 H 74-106 mg/dL Calcium Level 9.7 8.7-10.4 mg/dL CT HEAD WITHOUT CONTRAST Indication: head ache, weakness, blurred vision EXAM DATE: 09/20/2024 07:13 AM COMPARISON: None TECHNIQUE: CT of the head without intravenous contrast. RADIATION DOSE: CTDIvol: 54 mGy, DLP: 1075 mGy*cm FINDINGS: There is no intracranial hemorrhage. There is no extra-axial fluid, mass, mass effect or midline shift. The ventricles are midline and normal in size. Basilar cisterns are patent. Olm[place]-white differentiation is maintained. The paranasal sinuses and mastoids are well-pneumatized. Imaged portion of the orbits are unremarkable. IMPRESSION: 1. No intracranial hemorrhage or mass effect. CHEST RADIOGRAPH Indication: cp Technique: Single frontal view of the chest was obtained Comparison: XY CHEST PORTABLE on DOS: 09/01/24, XY CHEST XRAY 1 VIEW on DOS: 07/17/24, XY CHEST PORTABLE on DOS: 07/07/24 FINDINGS: The cardiac silhouette is unremarkable. The lungs demonstrate perihilar airspace opacities. The pulmonary vasculature is prominent. There is no pleural effusion. There is no pneumothorax. IMPRESSION: 1. vascular congestion and bilateral perihilar airspace opacities.Pulmonary Assessment/Plan Assessment/Plan Assessment Chest pain rule out ACS Generalized weakness Intractable headache with blurred vision and dizziness Intractable Right flank pain Vascular congestion probable pneumonia History of hypertension History of hyperlipidemia History of diabetes type 2 History of CHF History of PE on Xarelto History of sleep apnea History of CVA with left-sided hemiparesis Plan Admit to tele Aspirin given in ED EKG Chest x-ray CT head noted Troponin negative x2 UA Hemoglobin A1c ISS and Accu-Cheks TSH Lipid panel Free T4 UDS Ultrasound renal Mag level Strict I&Os Daily weights Last echo on 06/18/2024EF of 60% with normal RV function IV antibiotics-ceftriaxone Diet Home medications reconciled DVT prophylaxis-not indicated patient ambulating, patient is on Xarelto PUD prophylaxis-H2 blockers Discussed plan of care with patient and nurse Plan discussed with: Patient My Orders Orders - NANCY RASMUSSEN TUCK POINTER HELPER Procedure Category Date Status Time Admit ADMIT 09/20/24 Transmitted 11:18 Code Status CODE 09/20/24 Transmitted 11:18 Vital Signs JAH 09/20/24 In Process 11:18 Top Dyeing Machine Loader JAH 09/20/24 In Process 11:18 Cardiac DIET 09/20/24 Transmitted Diet-2gna,Lofat,Lochol Lunch Aspirin Tablet PHA 09/21/24 Logged 10:00 Atorvastatin (Lipitor) PHA 09/20/24 Logged 22:00 Morphine Sulfate PHA 09/20/24 Logged Injection 11:30 Acetaminophen Tablet PHA 09/20/24 Logged (Tylenol Tablet) 11:30 Complete Blood Count LAB 09/21/24 Verified 04:00 Basic Metabolic Panel LAB 09/21/24 Verified 04:00 Magnesium LAB 09/21/24 Verified 04:00 Lipid Panel LAB 09/21/24 Verified 04:00 Lipase LAB 09/21/24 Verified 04:00 Echo 2d Mode Cardiac US 09/20/24 Logged DOP 11:18 Nitroglycerin PHA 09/20/24 Logged Sublingual (Ntrostat 11:30 Ondansetron Hcl PHA 09/20/24 Logged (Zofran) 11:30 Electrocardigram EKG 09/21/24 Logged 04:00 Troponin-I Hs LAB 09/20/24 Logged 11:18 Cardiac JAH 09/20/24 In Process Rehabilitation - Outpa Nitroglycerin PHA 09/20/24 Logged Sublingual (Ntrostat 11:30 Morphine Sulfate PHA 09/20/24 Logged Injection 11:30 Stat Ekg For Chest [facility] 09/20/24 In Process Pain 11:18 Notify Md Of Changes JAH 09/20/24 In Process From Base 11:18 Operator Receptionist For JAH 09/20/24 In Process 24 Hours 11:18 Emergency Dysrhythmia [facility] 09/20/24 In Process Protocol 11:18 Rhythm Strips Once [facility] 09/20/24 In Process Every Shift 11:18 Oxygen By Nasal RT 09/20/24 Transmitted Cannula 11:18 Magnesium LAB 09/20/24 In Process 11:18 Thyroid Stimulating LAB 09/20/24 In Process Hormone 11:18 Free T4 (Free LAB 09/20/24 Logged Thyroxine) 11:18 Urinalysis LAB 09/20/24 Logged 11:18 Drug Screen LAB 09/20/24 Logged 11:18 Ceftriaxone 1gm/50ml PHA 09/20/24 Logged D5w (Rocephin) 11:30 Date of Service: Sep 20, 2024 Billing Provider: NANCY RASMUSSEN Common Visit Codes: [id number] INP/OBS CARE (HIGH) NANCY RASMUSSEN Sep 20, 2024 11:35
[2024-09-20] MEDS: cefTRIAXone 1GM/50ML D5W 50 ML IV SCH (12:44)
[2024-09-20] MEDS: ONDANSETRON HCL 4 MG/2 ML VIAL IV PRN (12:49)
[2024-09-20] MEDS: MORPHINE SULFATE INJ 2 MG/ml SYRG IV PRN ×2 (12:49→18:47)
[2024-09-20] MEDS: IPRATROPIUM BROM 0.5 MG/2.5ML INH SOL NEB SCH (13:40)
[2024-09-20] MEDS: ALBUTEROL SULF 2.5 MG/0.5ML(0.5%) NEB SOLN NEB SCH (13:40)
--- NOTE | 2024-09-20 14:04 | DVH ---
INDICATION: right flank pain TECHNIQUE: Multiple real-time sonographic images of the kidneys and bladder were obtained. COMPARISON: None FINDINGS: The right kidney measures 10.0 cm in length. The right renal echogenicity, contour and cortical thick ness are within normal limits. No hydronephrosis or large masses/calculi are seen. The left kidney measures 11.5 cm in length. The left renal echogenicity, contour, and cortical thickn ess are within normal limits. No hydronephrosis or large masses/calculi are seen. No large intraluminal masses are seen in the bladder. IMPRESSION: 1. Unremarkable examination.
[2024-09-20] MEDS ORDERED: PATIENTS OWN MEDICATION (Atorvastatin Calcium 1 TAB) PO SCH (18:00)
[2024-09-20] MEDS: ATORVASTATIN 20 MG TAB PO SCH (21:18)
[2024-09-20] MEDS: OLANZapine 5 MG TAB PO SCH (22:00)
[2024-09-20] MEDS: MIRTAZAPINE 30 MG TAB PO SCH (22:00)
[2024-09-20 22:25] LABS: Urine Bacteria None Seen /hpf (None Seen)
[2024-09-20 22:35] LABS: Urine Blood Negative /uL (Negative); Urine Clarity Clear (Clear); Urine Color Yellow (Yellow); Urine Mucus FEW (None Seen); Urine Protein, UAD TRACE (Negative); Urine Specific Gravity 1.033 (1.001-1.035); Urine Squamous Epithelial Cell None Seen /hpf (<5); Urine Urobilinogen Normal (Negative); Urine WBC 1 /HPF (0-3)
[2024-09-20 22:45] LABS: Cannabinoid Screen, Urine Pos (NEGATIVE)
[2024-09-20 22:50] LABS: Amphetamine Screen, Urine Neg (NEGATIVE); Barbiturate Scree,Urine Neg (NEGATIVE); Benzodiazephine Screen, Urine Neg (NEGATIVE); Cocaine Screen, Urine Neg (NEGATIVE); Opiate Scree,Urine Pos (NEGATIVE); Phencyclidine Screen, Urine Neg (NEGATIVE)
[2024-09-21] VITALS (19 sets, daily range): BP systolic 103–124; BP diastolic 59–84; PULSE 75–104; RESP 14–19; TEMP 96.5–98.3; O2SAT 94–100
[2024-09-21 07:20] LABS: Basophils # (auto) 0 10 ^3/uL (0-0.2); Eosinophils # (auto) 0.1 10 ^3/uL (0-0.8); Eosinophils % (auto) 1.3 % (0.0-7.0); Lymphocytes # (auto) 1.7 10 ^3/uL (0.4-5.4); Monocytes # (auto) 0.7 10 ^3/uL (0-1.3)
[2024-09-21 07:22] LABS: Basophils % (auto) 0.6 % (0.0-2.0); Hematocrit 38.8 % (41.0-53.0); Hemoglobin 13.4 g/dL (13.5-17.5); Lymphocytes % (auto) 27.3 % (10.0-50.0); Mean Corpuscular Hemoglobin 35.1 pg (28.0-32.0); Mean Corpuscular Hgb Conc. 34.4 g/dL (32.0-36.0); Mean Corpuscular Volume 102.1 fL (80.0-100.0); Monocytes % (auto) 11.1 % (0.0-12.0); Neutrophils # (auto) 3.7 10 ^3/uL (1.6-8.6); Neutrophils % (auto) 59.7 % (37.0-80.0); Platelet Count (auto) 165 10^3/uL (140-450); Red Cell Distribution Width 14.3 % (11.8-14.3); White Blood Cell 6.2 10^3/uL (4.4-10.8)
[2024-09-21 07:41] LABS: Chloride 102 mmol/L (98-107); Potassium 4.4 mmol/L (3.5-5.1); Sodium 138 mmol/L (136-145)
[2024-09-21 07:42] LABS: Anion Gap 9 (5-15); Calcium 9.9 mg/dL (8.7-10.4); Carbon Dioxide 27 mmol/L (20-31)
[2024-09-21 07:47] LABS: BUN/Creatinine Ratio 12.6 (10.0-20.0); Blood Urea Nitrogen 12 mg/dL (9-23); Glucose 104 mg/dL (74-106)
[2024-09-21 07:48] LABS: LDL Cholesterol 86 mg/dL (< 100); Magnesium 1.9 mg/dL (1.6-2.6)
[2024-09-21 07:49] LABS: Cholesterol 160 mg/dL (< 200); HDL Cholesterol 53 mg/dL (40-59)
[2024-09-21 07:51] LABS: Triglycerides 157 mg/dL (< 150)
[2024-09-21 08:45] LABS: Lipase 42 U/L (12-53)
[2024-09-21] MEDS: ASPirin 81 mg TAB PO SCH (08:56)
[2024-09-21] MEDS: METOPROLOL SUCCINATE XL 50 MG TAB PO SCH (08:57)
[2024-09-21] MEDS: LOSARTAN POTASSIUM 50 MG TAB PO SCH (08:57)
[2024-09-21] MEDS: RIVAROXABAN 20 MG TAB PO SCH (08:58)
[2024-09-21] MEDS: FAMOTIDINE 20 MG TAB PO SCH (08:59)
[2024-09-21] MEDS: busPIRone HCL 10 MG TAB PO SCH (08:59)
[2024-09-21] MEDS ORDERED: PATIENTS OWN MEDICATION (Aspirin (Aspirin Low Dose) 1 TAB) PO SCH (10:00)
--- NOTE | 2024-09-21 12:59 | DVHPN2 ---
Reviewed: Care Plan, H&P, Labs, Medications, Previous Orders, Radiology Changes from previous H/P or p: No Changes Eyes: Vision change Cardiovascular: Chest Pain Musculoskeletal: other (Right flank pain) Objective Vitals Vital Signs Date Time Temp Pulse Resp B/P (MAP) Pulse Ox O2 Delivery O2 Flow Rate FiO2 09/21/24 11:21 88 14 99 09/21/24 11:13 Room Air 0.0 09/21/24 11:13 21 09/21/24 09:00 97.8 117/84 (95) 97.8 Intake/Output Intake and Output 09/21/24 07:00 Intake Total 1350 ml Output Total 475 ml Balance 875 ml Intake Oral 1300 ml IV Total 50 ml Output Urine Total 475 ml # Voids 1 Medications Current Medications Medications Dose Ordered Sig/Carlos Route Start Time Stop Time Status Last Admin Dose Admin Aspirin 81 mg DAILY PO 09/21/24 10:00 09/21/24 08:56 81 MG Atorvastatin Calcium 40 mg HS PO 09/20/24 22:00 09/20/24 21:18 40 MG Acetaminophen 650 mg Q6HP PRN PO 09/20/24 11:30 Ondansetron HCl 4 mg Q4HP PRN IV 09/20/24 11:30 09/20/24 12:49 4 MG Nitroglycerin 0.4 mg Q5MINP PRN SL 09/20/24 11:30 Morphine Sulfate 2 mg Q30M PRN IV 09/20/24 11:30 09/20/24 12:49 2 MG Ceftriaxone Sodium 50 ml @ 100 mls/hr DAILY@09 IV 09/20/24 11:30 09/21/24 08:56 100 MLS/HR Famotidine 20 mg DAILY PO 09/21/24 10:00 09/21/24 08:59 20 MG Mirtazapine 30 mg HS PO 09/20/24 22:00 Olanzapine 5 mg HS PO 09/20/24 22:00 Rivaroxaban 20 mg DAILY PO 09/21/24 10:00 09/21/24 08:58 20 MG Buspirone HCl 15 mg DAILY PO 09/21/24 10:00 09/21/24 08:59 15 MG Losartan Potassium 50 mg DAILY PO 09/21/24 10:00 09/21/24 08:57 50 MG Metoprolol Succinate 100 mg DAILY PO 09/21/24 10:00 09/21/24 08:57 100 MG Albuterol 2.5 mg Q4HWA [facility] 09/20/24 14:00 09/21/24 11:13 2.5 MG Ipratropium [place] 0.5 mg Q4HWA [facility] 09/20/24 14:00 09/21/24 11:13 0.5 MG Morphine Sulfate 1 mg Q6HP PRN IV 09/20/24 16:00 09/21/24 08:54 1 MG Laboratory Results Laboratory Tests 09/21/24 06:57 Chemistry Test 09/21/24 06:57 Calcium Level 9.9 mg/dL (8.7-10.4) Magnesium Level 1.9 mg/dL (1.6-2.6) Lipid panel Test 09/21/24 06:57 Cholesterol Level 160 mg/dL (< 200) HDL Cholesterol 53 mg/dL (40-59) Lipase 42 U/L (12-53) Triglycerides Level 157 mg/dL (< 150) H Urinalysis Test 09/20/24 00:00 Urine Color Yellow (Yellow) Urine Clarity Clear (Clear) Urine pH 5.0 (5.0-9.0) Urine Specific [place] 1.033 (1.001-1.035) Urine Protein Trace (Negative) H Urine Ketones Trace (Negative) Urine Blood Negative /uL (Negative) Urine Nitrite Negative (Negative) Urine Bilirubin Negative (Negative) Urine Urobilinogen Normal mg/dL (Negative) Urine Leukocyte Esterase Negative /uL (Negative) Urine RBC <1 /hpf (0 - 3) Urine Microscopic WBC 1 /HPF (0-3) Urine Squamous Epithelial Cells None seen /hpf (<5) Urine Bacteria None seen /hpf (None Seen) Urine Mucus Few (None Seen) Urine Glucose Normal mg/dL (Normal) Labs and/or images reviewed: Labs reviewed by me, Image(s) reviewed by me Assessment/Plan Assessment/Plan Acute chest pain rule out coronary artery disease troponin negative x3: Cardiology consult for Dr. Webb, treatment per ACS protocol Hypertension Acute community-acquired Bilateral pneumonia Gram-negative versus Gram-positive: Rocephin History of PE : On Xarelto Uncontrolled diabetes: Insulin sliding scale History of CVA with left hemiplegia Acute on chronic diastolic heart failure Possible obstructive sleep apnea Chronic pain syndrome: [place] 10 q.6 hours per patient's request Chronic current marijuana abuse: Counseling Moderate obesity Depression continue Remeron BuSpar Zyprexa Patient was discharged from this hospital on 09/03/2024, He refused Cardiolite stress test during the last visit Plan discussed with: Patient Date of Service: Sep 21, 2024 Billing Provider: JUDI JARAMILLO MD Common Visit Codes: [id number] CARE 30-74 MIN JUDI JARAMILLO MD Sep 21, 2024 12:59
[2024-09-21] MEDS: HYDROcodone-ACET 10/325MG TAB PO PRN (16:00)
--- NOTE | 2024-09-21 16:30 | DVHINCON2 ---
Date Seen: Sep 21, 2024 Referring Physician Rogelio Reason for Consultation Chest Pain History of Present Illness 58-year-old male with PMH for HTN, HLD, mi CAD, recurrent PE on Eliquis, diabetes, previous smoker presents to the hospital with chest pain. Chest pain noted to be retrosternal, sharp in nature, nonradiating, intermittent, reproducible with deep inhalation and cough. Upon evaluation in the ER, CXR showing vascular congestion with bilateral airspace opacities. Troponin trending negative. Of note patient was seen at [facility] on 09/08/[address] which notes [address] of [address] coronary angiogram showing mild calcification with less than 10% luminal narrowing of left main and less than 25% luminal narrowing of LAD with no other significant stenosis. EKG reviewed and shows sinus tachycardia at 103 beats per minute, no ST and T-wave abnormality noted. Past Medical History As stated above Past Surgical History As stated above Family History: Arthritis G8 FATHER, FH: rheumatoid arthritis G8 MOTHER, Social History Occasional alcohol use, previous tobacco use quit approximately 1 month ago, denies any illicit drug use. Allergies: Coded Allergies: Ciprofloxacin (Verified Allergy, Unknown, 09/20/24) Ibuprofen (Verified Allergy, Unknown, 06/18/24) Penicillins (Verified Allergy, Unknown, 06/18/24) Home Meds Active Scripts Aspirin (Aspirin Low Dose) 81 Mg Chw, 1 TAB PO DAILY for 30 Days, #30 TAB 3 Refills Prov:ROSAMARIA ANNA RESIDENT 06/20/24 Reported Medications Atorvastatin Calcium (ATORVASTATIN CALCIUM) 40 Mg Tab, 1 TAB PO QPM for 90 Days, #90 09/03/24 Rivaroxaban (Xarelto Tablet) 20 Mg Tb, 1 TAB PO DAILY for 9 Days, #9 09/03/24 Famotidine (Famotidine) 20 Mg Tab, 1 TAB PO DAILYPRN for 30 Days, #30 09/03/24 Meloxicam (Meloxicam) 15 Mg Tab, 1 TAB PO DAILY for 30 Days, #30 09/03/24 Ipratropium-Albuterol (COMBIVENT RESPIMAT) Respimat Aer, 1 PUFF INH QID for 30 Days, #4 09/03/24 Trazodone Hcl (Trazodone Hcl) 100 Mg Tab, 1 TAB PO HS for 90 Days, #90 09/03/24 Buspirone Hcl (Buspirone Hcl) 15 Mg Tab, 1 TAB PO DAILY for 90 Days, #90 09/03/24 Olanzapine (OLANZAPINE) 5 Mg Tab, 1 TAB PO HS for 30 Days, #30 09/03/24 Mirtazapine (Mirtazapine Oral Disintegrating Tablet) 30 Mg Tab, 1 TAB PO HS for 30 Days, #30 09/03/24 Hydroxyzine Hcl (Hydroxyzine Hcl) 25 Mg Tab, 1 TAB PO DAILYPRN for 30 Days, #30 09/03/24 Albuterol Sulfate (Albuterol Sulfate Hfa) 108 Mcg/Act Aer, 2 PUFF INH Q6H 06/19/24 Metoprolol Succinate (Metoprolol Succinate Er) 100 Mg Tab, 1 TAB PO DAILY 06/19/24 Irbesartan (IRBESARTAN) 150 Mg Tab, 1 TAB PO DAILY 06/19/24 Hydrocodone-Acetaminophen (Hydrocodone/Acetaminophen 10-325 mg) 1 Tab Tab, 1 TAB PO Q6HP PRN for PAIN SCALE 7 THRU 10 06/19/24 Current Medications Current Medications Medications (Trade) Dose Ordered Sig/Carlos Route PRN Reason Start Time Stop Time Status Last Admin Aspirin 81 mg DAILY PO 09/21/24 10:00 09/21/24 08:56 Atorvastatin Calcium (Lipitor) 40 mg HS PO 09/20/24 22:00 09/20/24 21:18 Famotidine (Pepcid Tablet) 20 mg DAILY PO 09/21/24 10:00 09/21/24 08:59 Mirtazapine (Remeron Tablet) 30 mg HS PO 09/20/24 22:00 Olanzapine (ZyPREXA Tablet) 5 mg HS PO 09/20/24 22:00 Rivaroxaban (Xarelto Tablet) 20 mg DAILY PO 09/21/24 10:00 09/21/24 08:58 Patient Own Medication 1 tab DAILY PO 09/21/24 10:00 09/20/24 11:47 DC Patient Own Medication 1 tab QPM PO 09/20/24 18:00 09/20/24 11:45 DC Buspirone HCl (Buspar Tablet) 15 mg DAILY PO 09/21/24 10:00 09/21/24 08:59 Losartan Potassium (Cozaar Tablet) 50 mg DAILY PO 09/21/24 10:00 09/21/24 08:57 Metoprolol Succinate (Toprol Xl) 100 mg DAILY PO 09/21/24 10:00 09/21/24 08:57 Acetaminophen/ Hydrocodone Bitart ([place] 10/325MG Tab) 1 tab Q6HP PRN PO MODERATE PAIN (4-6 PAIN SCALE) 09/21/24 13:15 Review of Systems Constitutional: No: Fever, Chills, Sweats, Weakness, Malaise, Other Eyes: No: Pain, Vision change, Conjunctivae inflammation, Eyelid inflammation, Other, Redness ENT: No: Ear pain, Ear discharge, Nose pain, Nose discharge, Nose congestion, Mouth pain, Mouth swelling, Throat pain, Throat swelling, Other Respiratory: No: Cough, Dry, Shortness of breath, SOB with exertion, Wheezing, Hemoptysis, Pleuritic Pain, Sputum, Wheezing, Other Cardiovascular: ; No: Chest Pain Palpitations, Orthopnea, Paroxysmal Noc. Dyspnea, Edema, Lt Headedness, Other Gastrointestinal: No: Nausea, Vomiting, Abdominal Pain, Diarrhea, Constipation, Melena, Hematochezia, Other Genitourinary: No Dysuria, No Frequency, No Incontinence, No Hematuria, No Retention, No Other Musculoskeletal: neck pain; No: other, shoulder pain, arm pain, back pain, hand pain, leg pain, foot pain Skin: No: Rash, Lesions, Jaundice, Bruising, Other Neurological: Other (Dizziness, headache.); No: Weakness, Numbness, Incoordination, Change in speech, Confusion, Seizures Vital Signs Vital Signs Date Time Temp Pulse Resp B/P (MAP) Pulse Ox O2 Delivery O2 Flow Rate FiO2 09/21/24 15:27 80 18 97 09/21/24 15:19 Room Air* 0 21 09/21/24 13:00 97.5 111/81 (91) 97.5 Physical Exam General appearance: Patient is well-developed, well-nourished, in no acute distress. HEENT: Exam shows: Normocephalic, atraumatic, PERRLA, EOMI Neck: Supple, no bruits Chest: Equal chest excursion bilaterally. Breath sounds normal-no rales or wheezes. Heart: Rhythm: Regular rate; no murmur or gallop Abdomen: Exam shows: Soft, nontender, nondistended Musculoskeletal: No clubbing, no cyanosis, no lower extremity edema Dermatology: Skin warm, moist. Neurological: Exam shows: Alert and oriented x4, normal speech Available prior records, labs, EKG, rhythm strips reviewed and interpreted Labs/Diagnostic Data Labs Test 09/21/24 06:57 09/20/24 10:31 09/20/24 07:04 09/20/24 00:00 Range/Units White Blood Count 6.2 4.4-10.8 10^3/uL Red Blood Count 3.80 L 4.5-5.90 10^6/uL Hemoglobin 13.4 L 13.5-17.5 g/dL Hematocrit 38.8 #L 41.0-53.0 % Mean Corpuscular Volume 102.1 H 80.0-100.0 fL Mean Corpuscular Hemoglobin 35.1 H 28.0-32.0 pg Mean Corpuscular Hemoglobin Concent 34.4 32.0-36.0 g/dL Red Cell Distribution Width 14.3 11.8-14.3 % Platelet Count 165 140-450 10^3/uL Mean Platelet Volume 8.1 6.9-10.8 fL Neutrophils (%) (Auto) 59.7 37.0-80.0 % Lymphocytes (%) (Auto) 27.3 10.0-50.0 % Monocytes (%) (Auto) 11.1 0.0-12.0 % Eosinophils (%) (Auto) 1.3 0.0-7.0 % Basophils (%) (Auto) 0.6 0.0-2.0 % Neutrophils # (Auto) 3.7 1.6-8.6 10 ^3/uL Lymphocytes # (Auto) 1.7 0.4-5.4 10 ^3/uL Monocytes # (Auto) 0.7 0-1.3 10 ^3/uL Eosinophils # (Auto) 0.1 0-0.8 10 ^3/uL Basophils # (Auto) 0 0-0.2 10 ^3/uL Nucleated Red Blood Cells 0.0 % Sodium Level 138 136-145 mmol/L Potassium Level 4.4 3.5-5.1 mmol/L Chloride Level 102 98-107 mmol/L Carbon Dioxide Level 27 20-31 mmol/L Anion Gap 9 5-15 Blood Urea Nitrogen 12 9-23 mg/dL Creatinine 0.95 0.700-1.30 mg/dL Glomerular Filtration Rate Calc 93 >90 mL/min BUN/Creatinine Ratio 12.6 10.0-20.0 Serum Glucose 104 74-106 mg/dL Calcium Level 9.9 8.7-10.4 mg/dL Magnesium Level 1.9 1.6-2.6 mg/dL Triglycerides Level 157 H < 150 mg/dL Cholesterol Level 160 < 200 mg/dL LDL Cholesterol 86 < 100 mg/dL HDL Cholesterol 53 40-59 mg/dL Lipase 42 12-53 U/L Troponin I High Sensitivity < 3 L </=54 ng/L Thyroid Stimulating Hormone (TSH) 0.43 L 0.55-4.78 uIU/mL Urine Color Yellow Yellow Urine Clarity Clear Clear Urine pH 5.0 5.0-9.0 Urine Specific [place] 1.033 1.001-1.035 Urine Protein Trace H Negative Urine Ketones Trace Negative Urine Blood Negative Negative /uL Urine Nitrite Negative Negative Urine Bilirubin Negative Negative Urine Urobilinogen Normal Negative mg/dL Urine Leukocyte Esterase Negative Negative /uL Urine RBC <1 0 - 3 /hpf Urine Microscopic WBC 1 0-3 /HPF Urine Squamous Epithelial Cells None seen <5 /hpf Urine Bacteria None seen None Seen /hpf Urine Mucus Few None Seen Urine Glucose Normal Normal mg/dL Urine Opiates Screen Pos NEGATIVE Urine Fentanyl Screen Neg NEGATIVE Urine Barbiturates Screen Neg NEGATIVE Urine Phencyclidine Screen Neg NEGATIVE Urine Amphetamines Screen Neg NEGATIVE Urine Benzodiazepines Screen Neg NEGATIVE Urine Cocaine Screen Neg NEGATIVE Urine Cannabinoids Screen Pos NEGATIVE Microbiology Date/Time Source Procedure Growth Status 09/21/24 02:52 Nose MRSA Screen - Final Complete Assessment * Chest pain - atypical. Pleuritic in nature. Troponins negative. EKG negative for acute ischemic changes. Patient with recent CT coronary angiogram showing mild nonobstructive CAD. ACS ruled out. Patient noted to echo showing normal EF, no significant valvular structural abnormalities. No further cardiac intervention indicated at this time. * Pneumonia - continue antibiotics. Management per primary team. * HTN - continue on current regimen, BP stable. * Chronic HFpEF - does not seem fluid overloaded. Continue monitoring. Normal EF on recent echo. * HX PE - recurrent. On Xarelto. * CORRINA - noncompliant with CPAP at home. Continue management per primary team. Case Discussed with Dr Webb. There is no further cardiac work-up indicated at this time. Thank you for allowing us to participate in this patient's care. Will sign off. Critical care, time spent: 44 minutes This medical document was created using an electronic medical record system with voice recognition software and computerized dictation system. Although this document has been carefully reviewed, there might still be some phonetic and ty pographical errors. Occasional wrong-word or ``sound-alike substitutions may have occurred due to the inherent limitations of voice recognition software. These areas are purely typographical due to imperfections of the software programs and do not reflect any compromise in the patient's medical care. Please read the chart carefully and recognize, using context, where these sub stitutions have occurred. Thank you for allowing me to participate in the management of this patient. The treatment plan was discussed with and agreed upon by patient/family including requesting consultants and ordering of imaging/procedures. Plan discussed with: Patient NYHA Physical activity limitations: Class1(None)absent sob, Date of Service: Sep 21, 2024 Billing Provider: SANTHOSH FAJARDO Cardiology Common Codes: [id number] INP/OBS CARE (High), [id number] CARE 30-74 MIN SANTHOSH FAJARDO Sep 21, 2024 16:30
[2024-09-22] VITALS (17 sets, daily range): BP systolic 88–116; BP diastolic 53–83; PULSE 67–99; RESP 16–20; TEMP 96.7–98.4; O2SAT 94–100
--- NOTE | 2024-09-22 08:23 | DVHPN2 ---
Reviewed: Care Plan, H&P, Labs, Medications, Previous Orders, Radiology Changes from previous H/P or p: No Changes Eyes: Vision change Cardiovascular: Chest Pain Musculoskeletal: other Objective Vitals Vital Signs Date Time Temp Pulse Resp B/P (MAP) Pulse Ox O2 Delivery O2 Flow Rate FiO2 09/22/24 06:22 70 18 100 09/22/24 06:16 Room Air* 0 21 09/22/24 05:00 97.7 115/83 (94) 97.7 Intake/Output Intake and Output 09/22/24 07:00 Intake Total 750 ml Output Total 1785 ml Balance -1035 ml Intake Oral 700 ml IV Total 50 ml Output Urine Total 1785 ml Medications Current Medications Medications Dose Ordered Sig/Carlos Route Start Time Stop Time Status Last Admin Dose Admin Aspirin 81 mg DAILY PO 09/21/24 10:00 09/21/24 08:56 81 MG Atorvastatin Calcium 40 mg HS PO 09/20/24 22:00 09/21/24 22:02 40 MG Acetaminophen 650 mg Q6HP PRN PO 09/20/24 11:30 Ondansetron HCl 4 mg Q4HP PRN IV 09/20/24 11:30 09/20/24 12:49 4 MG Nitroglycerin 0.4 mg Q5MINP PRN SL 09/20/24 11:30 Morphine Sulfate 2 mg Q30M PRN IV 09/20/24 11:30 09/20/24 12:49 2 MG Ceftriaxone Sodium 50 ml @ 100 mls/hr DAILY@09 IV 09/20/24 11:30 09/21/24 08:56 100 MLS/HR Famotidine 20 mg DAILY PO 09/21/24 10:00 09/21/24 08:59 20 MG Mirtazapine 30 mg HS PO 09/20/24 22:00 Olanzapine 5 mg HS PO 09/20/24 22:00 Rivaroxaban 20 mg DAILY PO 09/21/24 10:00 09/21/24 08:58 20 MG Buspirone HCl 15 mg DAILY PO 09/21/24 10:00 09/21/24 08:59 15 MG Losartan Potassium 50 mg DAILY PO 09/21/24 10:00 09/21/24 08:57 50 MG Metoprolol Succinate 100 mg DAILY PO 09/21/24 10:00 09/21/24 08:57 100 MG Albuterol 2.5 mg Q4HWA NEB 09/20/24 14:00 09/22/24 06:16 2.5 MG Ipratropium [place] 0.5 mg Q4HWA NEB 09/20/24 14:00 09/22/24 06:16 0.5 MG Morphine Sulfate 1 mg Q6HP PRN IV 09/20/24 16:00 09/21/24 08:54 1 MG Acetaminophen/ Hydrocodone Bitart 1 tab Q6HP PRN PO 09/21/24 13:15 09/22/24 04:08 1 TAB Laboratory Results Laboratory Tests 09/21/24 06:57 Urinalysis Test 09/20/24 00:00 Urine Color Yellow (Yellow) Urine Clarity Clear (Clear) Urine pH 5.0 (5.0-9.0) Urine Specific [place] 1.033 (1.001-1.035) Urine Protein Trace (Negative) H Urine Ketones Trace (Negative) Urine Blood Negative /uL (Negative) Urine Nitrite Negative (Negative) Urine Bilirubin Negative (Negative) Urine Urobilinogen Normal mg/dL (Negative) Urine Leukocyte Esterase Negative /uL (Negative) Urine RBC <1 /hpf (0 - 3) Urine Microscopic WBC 1 /HPF (0-3) Urine Squamous Epithelial Cells None seen /hpf (<5) Urine Bacteria None seen /hpf (None Seen) Urine Mucus Few (None Seen) Urine Glucose Normal mg/dL (Normal) Microbiology Microbiology Date/Time Source Procedure Growth Status 09/21/24 02:52 Nose MRSA Screen - Final Complete Labs and/or images reviewed: Labs reviewed by me, Image(s) reviewed by me Assessment/Plan Assessment/Plan Acute chest pain rule out coronary artery disease troponin negative x3: Cardiology consult for Dr. Webb appreciated, felt to have noncardiac chest pain and cleared for discharge Hypertension Acute community-acquired Bilateral pneumonia Gram-negative versus Gram-positive: Rocephin History of PE : On Xarelto Uncontrolled diabetes: Insulin sliding scale History of CVA with left hemiplegia Acute on chronic diastolic heart failure Possible obstructive sleep apnea Chronic pain syndrome: [place] 10 q.6 hours per patient's request Chronic current marijuana abuse: Counseling Moderate obesity Depression continue Remeron BuSpar Zyprexa Patient was discharged from this hospital on 09/03/2024, He refused Cardiolite stress test during the last visit Plan discussed with: Patient My Orders Orders - JUDI JARAMILLO MD Procedure Category Date Status Time * Cardiology Consult CONS 09/21/24 Transmitted 13:02 * Mortgage Servicing Specialist CONS 09/21/24 Transmitted Consult Hydrocodone-Acet PHA 09/21/24 In Process 10/325mg Tab ([place] 13:15 Date of Service: Sep 22, 2024 Billing Provider: JUDI JARAMILLO MD Common Visit Codes: [id number] INP/OBS CARE(HIGH) JUDI JARAMILLO MD Sep 22, 2024 08:22
[2024-09-23] VITALS (8 sets, daily range): BP systolic 113; BP diastolic 76–79; PULSE 63–84; RESP 16–20; TEMP 97–97.5; O2SAT 97–100
--- NOTE | 2024-09-23 07:55 | DVHPN2 ---
Reviewed: Care Plan, H&P, Labs, Medications, Previous Orders, Radiology Changes from previous H/P or p: No Changes Eyes: Vision change Cardiovascular: Chest Pain Musculoskeletal: other Objective Vitals Vital Signs Date Time Temp Pulse Resp B/P (MAP) Pulse Ox O2 Delivery O2 Flow Rate FiO2 09/23/24 07:38 97 Room Air 0.0 09/23/24 07:38 21 09/23/24 07:38 74 16 09/23/24 05:00 97.0 113/76 (88) 97.0 Intake/Output Intake and Output 09/23/24 07:00 Intake Total 1750 ml Output Total 900 ml Balance 850 ml Intake Oral 1700 ml IV Total 50 ml Output Urine Total 900 ml # Voids 6 # Bowel Movements 1 Medications Current Medications Medications Dose Ordered Sig/Carlos Route Start Time Stop Time Status Last Admin Dose Admin Aspirin 81 mg DAILY PO 09/21/24 10:00 09/22/24 09:17 81 MG Atorvastatin Calcium 40 mg HS PO 09/20/24 22:00 09/22/24 21:07 40 MG Acetaminophen 650 mg Q6HP PRN PO 09/20/24 11:30 Ondansetron HCl 4 mg Q4HP PRN IV 09/20/24 11:30 09/20/24 12:49 4 MG Nitroglycerin 0.4 mg Q5MINP PRN SL 09/20/24 11:30 Morphine Sulfate 2 mg Q30M PRN IV 09/20/24 11:30 09/20/24 12:49 2 MG Ceftriaxone Sodium 50 ml @ 100 mls/hr DAILY@09 IV 09/20/24 11:30 09/22/24 09:16 100 MLS/HR Famotidine 20 mg DAILY PO 09/21/24 10:00 09/22/24 09:18 20 MG Mirtazapine 30 mg HS PO 09/20/24 22:00 Olanzapine 5 mg HS PO 09/20/24 22:00 Rivaroxaban 20 mg DAILY PO 09/21/24 10:00 09/22/24 09:17 20 MG Buspirone HCl 15 mg DAILY PO 09/21/24 10:00 09/22/24 09:18 15 MG Losartan Potassium 50 mg DAILY PO 09/21/24 10:00 09/22/24 09:18 50 MG Metoprolol Succinate 100 mg DAILY PO 09/21/24 10:00 09/22/24 09:17 100 MG Albuterol 2.5 mg Q4HWA NEB 09/20/24 14:00 09/23/24 07:37 2.5 MG Ipratropium [place] 0.5 mg Q4HWA NEB 09/20/24 14:00 09/23/24 07:37 0.5 MG Morphine Sulfate 1 mg Q6HP PRN IV 09/20/24 16:00 09/21/24 08:54 1 MG Acetaminophen/ Hydrocodone Bitart 1 tab Q6HP PRN PO 09/21/24 13:15 09/23/24 04:12 1 TAB Laboratory Results Laboratory Tests 09/21/24 06:57 Urinalysis Test 09/20/24 00:00 Urine Color Yellow (Yellow) Urine Clarity Clear (Clear) Urine pH 5.0 (5.0-9.0) Urine Specific [place] 1.033 (1.001-1.035) Urine Protein Trace (Negative) H Urine Ketones Trace (Negative) Urine Blood Negative /uL (Negative) Urine Nitrite Negative (Negative) Urine Bilirubin Negative (Negative) Urine Urobilinogen Normal mg/dL (Negative) Urine Leukocyte Esterase Negative /uL (Negative) Urine RBC <1 /hpf (0 - 3) Urine Microscopic WBC 1 /HPF (0-3) Urine Squamous Epithelial Cells None seen /hpf (<5) Urine Bacteria None seen /hpf (None Seen) Urine Mucus Few (None Seen) Urine Glucose Normal mg/dL (Normal) Microbiology Microbiology Date/Time Source Procedure Growth Status 09/21/24 02:52 Nose MRSA Screen - Final Complete Labs and/or images reviewed: Labs reviewed by me, Image(s) reviewed by me Assessment/Plan Assessment/Plan Noncardiac chest pain troponin negative x3: Cardiology consult for Dr. Webb appreciated, Hypertension Acute community-acquired Bilateral pneumonia Gram-negative versus Gram-positive: Rocephin History of PE : On Xarelto Uncontrolled diabetes: Insulin sliding scale History of CVA with left hemiplegia Acute on chronic diastolic heart failure echo 60 % June 2024 Possible obstructive sleep apnea Chronic pain syndrome: [place] 10 q.6 hours per patient's request Chronic current marijuana abuse: Counseling Moderate obesity Depression continue Remeron BuSpar Zyprexa Plan discussed with: Patient Date of Service: Sep 23, 2024 Billing Provider: JUDI JARAMILLO MD Common Visit Codes: [id number] INP/OBS CARE(HIGH) JUDI JARAMILLO MD Sep 23, 2024 07:55
[2024-09-23] MEDS ORDERED: HYDR-4798 PO (08:02)
[2024-09-23] MEDS ORDERED: AZIT500T66 PO (08:02)
[2024-09-23] MEDS ORDERED: ALBUAER3 IN (08:02)
--- NOTE | 2024-09-23 08:09 | DVHDS2 ---
Discharge Summary Date of Admission Sep 20, 2024 at 11:18 Date of Discharge: Sep 23, 2024 Admitting Diagnosis Chest pain Wounds: None Labs/Diagnostic Data: Laboratory Results Test 09/21/24 06:57 09/20/24 10:31 09/20/24 07:04 09/20/24 00:00 White Blood Count 6.2 10^3/uL (4.4-10.8) Red Blood Count 3.80 10^6/uL (4.5-5.90) Hemoglobin 13.4 g/dL (13.5-17.5) Hematocrit 38.8 % (41.0-53.0) Mean Corpuscular Volume 102.1 fL (80.0-100.0) Mean Corpuscular Hemoglobin 35.1 pg (28.0-32.0) Mean Corpuscular Hemoglobin Concent 34.4 g/dL (32.0-36.0) Red Cell Distribution Width 14.3 % (11.8-14.3) Platelet Count 165 10^3/uL (140-450) Mean Platelet Volume 8.1 fL (6.9-10.8) Neutrophils (%) (Auto) 59.7 % (37.0-80.0) Lymphocytes (%) (Auto) 27.3 % (10.0-50.0) Monocytes (%) (Auto) 11.1 % (0.0-12.0) Eosinophils (%) (Auto) 1.3 % (0.0-7.0) Basophils (%) (Auto) 0.6 % (0.0-2.0) Neutrophils # (Auto) 3.7 10 ^3/uL (1.6-8.6) Lymphocytes # (Auto) 1.7 10 ^3/uL (0.4-5.4) Monocytes # (Auto) 0.7 10 ^3/uL (0-1.3) Eosinophils # (Auto) 0.1 10 ^3/uL (0-0.8) Basophils # (Auto) 0 10 ^3/uL (0-0.2) Nucleated Red Blood Cells 0.0 % Sodium Level 138 mmol/L (136-145) Potassium Level 4.4 mmol/L (3.5-5.1) Chloride Level 102 mmol/L (98-107) Carbon Dioxide Level 27 mmol/L (20-31) Anion Gap 9 (5-15) Blood Urea Nitrogen 12 mg/dL (9-23) Creatinine 0.95 mg/dL (0.700-1.30) Glomerular Filtration Rate Calc 93 mL/min (>90) BUN/Creatinine Ratio 12.6 (10.0-20.0) Serum Glucose 104 mg/dL (74-106) Calcium Level 9.9 mg/dL (8.7-10.4) Magnesium Level 1.9 mg/dL (1.6-2.6) Triglycerides Level 157 mg/dL (< 150) Cholesterol Level 160 mg/dL (< 200) LDL Cholesterol 86 mg/dL (< 100) HDL Cholesterol 53 mg/dL (40-59) Lipase 42 U/L (12-53) Troponin I High Sensitivity < 3 ng/L (</=54) Free Thyroxine (T4) Calculated 1.22 ng/dL (0.89-1.76) Thyroid Stimulating Hormone (TSH) 0.43 uIU/mL (0.55-4.78) Urine Color Yellow (Yellow) Urine Clarity Clear (Clear) Urine pH 5.0 (5.0-9.0) Urine Specific [place] 1.033 (1.001-1.035) Urine Protein Trace (Negative) Urine Ketones Trace (Negative) Urine Blood Negative /uL (Negative) Urine Nitrite Negative (Negative) Urine Bilirubin Negative (Negative) Urine Urobilinogen Normal mg/dL (Negative) Urine Leukocyte Esterase Negative /uL (Negative) Urine RBC <1 /hpf (0 - 3) Urine Microscopic WBC 1 /HPF (0-3) Urine Squamous Epithelial Cells None seen /hpf (<5) Urine Bacteria None seen /hpf (None Seen) Urine Mucus Few (None Seen) Urine Glucose Normal mg/dL (Normal) Urine Opiates Screen Pos (NEGATIVE) Urine Fentanyl Screen Neg (NEGATIVE) Urine Barbiturates Screen Neg (NEGATIVE) Urine Phencyclidine Screen Neg (NEGATIVE) Urine Amphetamines Screen Neg (NEGATIVE) Urine Benzodiazepines Screen Neg (NEGATIVE) Urine Cocaine Screen Neg (NEGATIVE) Urine Cannabinoids Screen Pos (NEGATIVE) Other Laboratory Tests 09/21/24 06:57 Brief Hx & Hospital Course: 58-year-old male with a history of diabetes CVA CHF sleep apnea chronic pain syndrome narcotic dependent chronic current marijuana abuse depression on Remeron BuSpar Zyprexa recently discharged came back complaining of chest pain troponin negative x3 seen by global professional Dr. Meagan la echo 60 percent ejection fraction June 2024 patient has acute diastolic congestive heart failure exacerbation found to be noncardiac chest pain acute community-acquired bilateral pneumonia treated with Rocephin. The patient is also on Xarelto for history of PE. Cleared for discharge by Cardiology. At the time of discharge patient is asymptomatic with a stable vital signs on room air. Discharged home on azithromycin for pneumonia [place] for the pain and Ventolin MDI for shortness of breath. Consults/Reason for consult Cardiology Operations or Procedures None Condition at Discharge: Fair Final Diagnosis/Problems List Noncardiac chest pain troponin negative x3: Cardiology consult for Dr. Jon flores, Hypertension Acute community-acquired Bilateral pneumonia Gram-negative versus Gram-positive: Rocephin History of PE : On Xarelto Uncontrolled diabetes: Insulin sliding scale History of CVA with left hemiplegia Acute on chronic diastolic heart failure echo 60 % June 2024 Possible obstructive sleep apnea Chronic pain syndrome: [place] 10 q.6 hours per patient's request Chronic current marijuana abuse: Counseling Moderate obesity Depression continue Remeron BuSpar Zyprexa Discharge Disposition: Home Discharge Instruct/Medications Diet: Cardiac 2g Na,low cholest Activity: Light activity Follow Up/Referral: Resume all previous home medications Follow up with the primary Dr Medications: Azithromycin Ventolin MDI [place] Transmitted to pharmacy 35 (Time taken for discharge summary 35 minutes) Discharge Statement: "Patient was advised to return to the ER or call 911 if any headaches, dizziness, shortness of breath, chest pain, abdominal pain, bleeding, fevers, or worsening of medical condition. Patient was counseled about treatment plan, medications, possible side effects, patientverbalized understanding. All questions were answered to the best of my ability. This discharge took greater then 30 minutes in planning, reviewing documentation, counseling the patient, and discussing with other team members." ASSESSMENT ASSESSMENT Hospital Course Improved Assessment Noncardiac chest pain troponin negative x3: Cardiology consult for Dr. Jon flores, Hypertension Acute community-acquired Bilateral pneumonia Gram-negative versus Gram-positive: Rocephin History of PE : On Xarelto Uncontrolled diabetes: Insulin sliding scale History of CVA with left hemiplegia Acute on chronic diastolic heart failure echo 60 % June 2024 Possible obstructive sleep apnea Chronic pain syndrome: [place] 10 q.6 hours per patient's request Chronic current marijuana abuse: Counseling Moderate obesity Depression continue Remeron BuSpar Zyprexa Date of Service: Sep 23, 2024 Billing Provider: JUDI JARAMILLO MD Common Visit Codes: 41159-GNZ/OBS DISCH DAY >30min JUDI JARAMILLO MD Sep 23, 2024 08:09
[2024-09-25] MEDS ORDERED: DOXY100C79 PO (08:09)
== END 2024-09-23 10:30 | disposition home or self-care (01) | DRG 205 ==
LOC: ER 06:47 → OVERFLOW 11:18 → TELE-CENTR 22:05
PROVIDERS: ADMIT Family Medicine; ATTEND Family Medicine
DX: M94.0 Chondrocostal junction syndrome [Tietze] (principal); I50.33 Acute on chronic diastolic (congestive) heart failure; J15.69 Pneumonia due to other Gram-negative bacteria; J15.9 Unspecified bacterial pneumonia; I69.354 Hemiplegia and hemiparesis following cerebral infarction affecting left non-dominant side; I25.110 Atherosclerotic heart disease of native coronary artery with unstable angina pectoris; Z68.41 Body mass index [BMI] 40.0-44.9, adult; G47.33 Obstructive sleep apnea (adult) (pediatric); G89.4 Chronic pain syndrome; F12.10 Cannabis abuse, uncomplicated; F32.A Depression, unspecified; E11.65 Type 2 diabetes mellitus with hyperglycemia; I11.0 Hypertensive heart disease with heart failure; M54.9 Dorsalgia, unspecified; E66.9 Obesity, unspecified; G47.30 Sleep apnea, unspecified; E78.5 Hyperlipidemia, unspecified; Z72.0 Tobacco use; Z79.01 Long term (current) use of anticoagulants; Z82.49 Family history of ischemic heart disease and other diseases of the circulatory system; Z86.711 Personal history of pulmonary embolism; Z88.0 Allergy status to penicillin; Z88.1 Allergy status to other antibiotic agents; Z88.6 Allergy status to analgesic agent; Z91.199 Patient's noncompliance with other medical treatment and regimen due to unspecified reason; Z79.82 Long term (current) use of aspirin; Z79.84 Long term (current) use of oral hypoglycemic drugs
CPT/HCPCS: 36415; 70450; 71045; 76775; 80048; 80061; 80307; 81001; 83690; 83735; 84439; 84443; 84484; 85025; 87081; 93005; 94640; 96374; 96375; 99291; G0378; J2405

== ENCOUNTER 2024-10-03 13:25 | Inpatient (IN) | payer MEDICARE, MEDICAID ==
[~2024-10-03] VITALS: Ht 177.8 cm; Wt 143.0 kg
[~2024-10-03 13:25] MED LIST changes: +ALBUAER3 IN; +DOXY100C79 PO; +HYDR-4798 PO
--- NOTE | 2024-10-03 13:44 | ECG ---
[facility] Test Date: 2024-10-03 Test Time: 13:43:06 Pat Name: ALVARO DUVALL Department: ER Room: [address] [place] [address] Gender: M Twist Maker: TARIK : 1965 Requested By: RONALD VENEGAS Order Number: [id number] Reading MD: Oliver Webb Measurements Intervals [place] Rate: 106 P: 63 IN: 141 QRS: -29 QRSD: 104 T: 60 QT: 338 QTc: 449 Interpretive Statements Sinus tachycardia Borderline left axis deviation Abnormal R-wave progression, late transition Electronically Signed On 10-04-2024 20:13:10 PDT by Oliver Webb Please click the below link to view image of tracing.
[2024-10-03] MEDS: NITROGLYCERIN 0.4 MG SL TAB SL ONE ×2 (14:01→17:53)
[2024-10-03 14:02] LABS: Basophils # (auto) 0.1 10 ^3/uL (0-0.2); Basophils % (auto) 1.1 % (0.0-2.0); Eosinophils # (auto) 0 10 ^3/uL (0-0.8); Eosinophils % (auto) 0.7 % (0.0-7.0); Hematocrit 43.6 % (41.0-53.0); Hemoglobin 14.7 g/dL (13.5-17.5); Lymphocytes # (auto) 1.9 10 ^3/uL (0.4-5.4); Lymphocytes % (auto) 37.4 % (10.0-50.0); Mean Corpuscular Hgb Conc. 33.7 g/dL (32.0-36.0); Mean Corpuscular Volume 100.7 fL (80.0-100.0); Monocytes # (auto) 0.4 10 ^3/uL (0-1.3); Monocytes % (auto) 7.9 % (0.0-12.0); Neutrophils # (auto) 2.7 10 ^3/uL (1.6-8.6); Neutrophils % (auto) 52.9 % (37.0-80.0); Nucleated Red Blood Cells % 0.2 %; Platelet Count (auto) 216 10^3/uL (140-450); Red Blood Cells 4.33 10^6/uL (4.5-5.90); Red Cell Distribution Width 14.4 % (11.8-14.3); White Blood Cell 5.1 10^3/uL (4.4-10.8)
[2024-10-03] MEDS: ASPirin-EC 325mg tab PO ONE (14:15)
--- NOTE | 2024-10-03 14:15 | DVH ---
CHEST RADIOGRAPH Indication: sob/cp Technique: Single frontal view of the chest was obtained Comparison: XY CHEST PORTABLE on DOS: 09/20/24, XY CHEST PORTABLE on DOS: 09/01/24, XY CHEST XRAY 1 VIE W on DOS: 07/17/24 FINDINGS: Lines and Tubes: None Lungs: Linear atelectasis left base Pleura: No effusion. No pneumothorax. Cardiomediastinal contours: Unremarkable Bones: No acute osseous abnormality. IMPRESSION: 1. Linear atelectasis left base.
[2024-10-03 14:20] LABS: Alanine Aminotransferase 28 U/L (7-40); Albumin 4.5 g/dL (3.2-4.8); Alkaline Phosphatase 112 U/L (46-116); Anion Gap 13 (5-15); Aspartate Aminotransferase 42 U/L (<34); BUN/Creatinine Ratio 10.2 (10.0-20.0); Blood Urea Nitrogen 12 mg/dL (9-23); Calcium 10.5 mg/dL (8.7-10.4); Carbon Dioxide 24 mmol/L (20-31); Chloride 106 mmol/L (98-107); Glucose 140 mg/dL (74-106); Potassium 3.7 mmol/L (3.5-5.1); Sodium 143 mmol/L (136-145); Total Protein 7.4 g/dL (5.7-8.2)
[2024-10-03] MEDS: SODIUM CHLORIDE 0.9% 1,000 ML IV ONE (14:20)
[2024-10-03 14:21] LABS: Bilirubin, Total 1.6 mg/dL (0.2-1.0); Lactic Acid w/Reflex 2.9 mmol/L (0.4-2.0)
--- NOTE | 2024-10-03 14:43 | ED.PDOC ---
HPI Comments 58y M who presents to the ED for chief complaint of chest pain - pt states he has been having L sided chest pain for the past 3-4 days - pt states the pain is constant, pressure like in nature, rating the pain 8/10, with no associated exacerbating or relieving factors - pt has associated shortness of breath, dizziness, diaphoresis and headache - pt was discharged from on 09/23 after being hospitalized with the following hospital course: 58-year-old male with a history of diabetes CVA CHF sleep apnea chronic pain syndrome narcotic dependent chronic current marijuana abuse depression on Remeron BuSpar Zyprexa recently discharged came back complaining of chest pain troponin negative x3 seen by paving foreman Dr. Meagan la echo 60 percent ejection fraction June 2024 patient has acute diastolic congestive heart failure exacerbation found to be noncardiac chest pain acute community-acquired bilateral pneumonia treated with Rocephin. The patient is also on Xarelto for history of PE. Cleared for discharge by Cardiology. At the time of discharge patient is asymptomatic with a stable vital signs on room air. Discharged home on azithromycin for pneumonia [place] for the pain and Ventolin MDI for shortness of breath. past medical history: DM, Hypertension, PE : On Xarelto, CVA with left hemiplegia, chronic pain syndrome Acute on chronic diastolic heart failure echo 60 % June 2024, Past surgical history: unknown allergies: cipro, ibuprofen, peincillins medications: denies social history: endorses tobacco use, denies ETOH use, denies drug use HPI: Poor Historian. REVIEW OF SYSTEMS: CONSTITUTIONAL: Denies acute: fever, diaphoresis, chills, generalized weakness. HEAD: Denies acute: headache, photophobia Eyes: Denies acute: Double vision, vision loss, eye pain, eye discharge. EARS: Denies acute: tinnitus, hearing loss, ear discharge, ear pain, THROAT: Denies acute: sore throat, swelling, difficulty swallowing , pain with swallowing, change in voice. NECK: Denies acute: neck pain, neck swelling, stiff neck. HEART: Denies acute : palpitations, LUNGS: Denies acute: wheezing, cough, hemoptysis ABDOMEN: Denies acute: abdominal pain, Nausea, Vomiting, diarrhea, melena , hematemesis, hematochezia SKIN: Denies acute: rash, redness, lesions, itchiness. EXTREMITIES: Denies acute: calf pain, numbness, tingling, weakness, denies pain in extremity. Denies acute: Low back pain. Neuro: Denies acute: focal neurological deficit, motor or sensory focal neurological d eficit, tremors, seizure like activity, confusion, change in mental status, loss of bowel or bladder function, cauda equina like symptoms. : Denies acute: dysuria, hematuria, flank pain, increase in urinary frequency. PSYCH: Denies acute: hallucination, suicidal ideation, homicidal ideation. PHYSICAL EXAM: General: -----no---acute distress, awake and alert. Head: normocephalic, atraumatic. Neck: supple, trachea is midline, no swelling. Throat: Normal phonation. Eyes:, no erythema, no purulent discharge, no proptosis, no icterus. Heart: regular rate, regular rhythm, no significant murmur appreciated. Lungs: no apparent respiratory distress, Able to speak in full sentences. No wheezing, no rhonchi, no crackles. No stridors Clear to auscultation bilaterally. Abdomen: non tender to palpation, non distended, soft, no guarding, no rebound, + bowel sounds. Neuro: Awake, Alert, oriented to name, self, situation, follows commands GCS=15. Speech is normal. Skin: no petechia, no purpura, no cyanosis, non-pale, not jaundice. Lower extremities: --trace bilateral - Pitting edema no deformity, no focal swelling, no calf TTP. Makes eye contact. moves all four extremities. Face: no apparent facial droop. Ambulating in the ED independently. ED COURSE: DISCLAIMER: This medical document was created using an electronic medical record system with voice recognition software and computerized dictation system. Although this document has been carefully reviewed, there might still be some phonetic and typographical errors. Occasional wrong-word or "sound-alike" substitutions may have occurred due to the inherent limitations of voice recognition software. These areas are purely typographical due to imperfections of the software programs and do not reflect any compromise in the patient's medical care. Please read the chart carefully and recognize, using context, where these substitutions have occurred. Chief Complaint: Shortness of Breath Time Seen by MD: 13:33 Primary Care Provider: unknown Reviewed Notes: Medications, Allergies Allergies: Coded Allergies: Azithromycin (Verified Allergy, Unknown, 10/05/24) Ciprofloxacin (Verified Allergy, Unknown, 09/20/24) Ibuprofen (Verified Allergy, Unknown, 06/18/24) Penicillins (Verified Allergy, Unknown, 06/18/24) Home Meds Active Scripts Albuterol Sulfate (VENTOLIN MDI) 90 Mcg Ih, 90 MCG IN QID PRN, #1 INH Prov:JUDI JARAMILLO MD 10/06/24 Hydrocodone-Acetaminophen (Hydrocodone Bitartrate/AC 10-325 mg) 1 Tab Tab, 1 TAB PO QID PRN, #30 TAB Prov:JUDI JARAMILLO MD 10/06/24 Amoxicillin & Pot Clavulanate (AUGMENTIN TABLET) 875 Mg Tb, 875 MG PO BID, #20 TAB Prov:JUDI JARAMILLO MD 10/06/24 Doxycycline (Monohydrate) (Doxycycline) 100 Mg Cap, 100 MG PO BID, #20 CAP Prov:JUDI JARAMILLO MD 09/25/24 Hydrocodone-Acetaminophen (Hydrocodone Bitartrate/AC 10-325 mg) 1 Tab Tab, 1 TAB PO QID PRN, #30 TAB Prov:JUDI JARAMILLO MD 09/23/24 Albuterol Sulfate (VENTOLIN MDI) 90 Mcg Ih, 90 MCG IN QID PRN, #1 INH Prov:JUDI JARAMILLO MD 09/23/24 Aspirin (Aspirin Low Dose) 81 Mg Chw, 1 TAB PO DAILY for 30 Days, #30 TAB 3 Refills Prov:ROSAMARIA ANNA RESIDENT 06/20/24 Reported Medications Atorvastatin Calcium (ATORVASTATIN CALCIUM) 40 Mg Tab, 1 TAB PO QPM for 90 Days, #90 09/03/24 Rivaroxaban (Xarelto Tablet) 20 Mg Tb, 1 TAB PO DAILY for 9 Days, #9 09/03/24 Famotidine (Famotidine) 20 Mg Tab, 1 TAB PO DAILYPRN for 30 Days, #30 09/03/24 Meloxicam (Meloxicam) 15 Mg Tab, 1 TAB PO DAILY for 30 Days, #30 09/03/24 Ipratropium-Albuterol (COMBIVENT RESPIMAT) Respimat Aer, 1 PUFF INH QID for 30 Days, #4 09/03/24 Trazodone Hcl (Trazodone Hcl) 100 Mg Tab, 1 TAB PO HS for 90 Days, #90 09/03/24 Buspirone Hcl (Buspirone Hcl) 15 Mg Tab, 1 TAB PO DAILY for 90 Days, #90 09/03/24 Olanzapine (OLANZAPINE) 5 Mg Tab, 1 TAB PO HS for 30 Days, #30 09/03/24 Mirtazapine (Mirtazapine Oral Disintegrating Tablet) 30 Mg Tab, 1 TAB PO HS for 30 Days, #30 09/03/24 Hydroxyzine Hcl (Hydroxyzine Hcl) 25 Mg Tab, 1 TAB PO DAILYPRN for 30 Days, #30 09/03/24 Albuterol Sulfate (Albuterol Sulfate Hfa) 108 Mcg/Act Aer, 2 PUFF INH Q6H 06/19/24 Metoprolol Succinate (Metoprolol Succinate Er) 100 Mg Tab, 1 TAB PO DAILY 06/19/24 Irbesartan (IRBESARTAN) 150 Mg Tab, 1 TAB PO DAILY 06/19/24 Hydrocodone-Acetaminophen (Hydrocodone/Acetaminophen 10-325 mg) 1 Tab Tab, 1 TAB PO Q6HP PRN for PAIN SCALE 7 THRU 10 06/19/24 Information Source: Patient Mode of Arrival: Ambulatory Past Medical History PAST MEDICAL HISTORY: CHF, CVA, HTN, PE Surgical History: Denies all surgeries Family History Family History: Reviewed,noncontributory to illness, Unknown Social History Smoker: Non-Smoker Alcohol: Denies ETOH Use Drugs: Denies Drug Use Lives In: Home Was a procedure done? Was a procedure done?: No CP Differential Dx Differential Diagnosis: N/A Differential Diagnosis: Other (Ddx include but not limitied to gastritis, musculoskeletal pain, radiculopathy, atypical chest pain, dissection, aneurysm, ACS, unstable angina, hiatal hernia, GERD, anxiety, costochondritis, PE, pneumothroax, neoplasm, cardiac ischemia, drug abuse, anemia.) X-Ray, Labs, Meds, VS Vital Signs Date Time Temp Pulse Resp B/P (MAP) Pulse Ox O2 Delivery O2 Flow Rate FiO2 10/03/24 21:00 76 19 115/81 (92) 97 10/03/24 20:39 76 19 115/81 10/03/24 20:09 80 22 119/85 10/03/24 19:30 85 19 97 Room Air* 0 21 10/03/24 19:30 98.6 85 13 114/87 (96) 98 98.6 10/03/24 18:53 112/75 10/03/24 18:00 83 22 112/75 (87) 94 10/03/24 17:53 120/82 10/03/24 16:00 76 10/03/24 15:59 97.3 74 18 116/81 (93) 99 97.3 10/03/24 14:15 Room Air* 0 21 10/03/24 14:01 124/95 10/03/24 14:00 98.4 115 22 124/95 (105) 95 98.4 10/03/24 13:43 106 10/03/24 13:30 98.4 127 20 143/87 (105) 95 98.4 Lab Test 10/03/24 16:44 10/03/24 14:56 10/03/24 13:48 Range/Units Troponin I High Sensitivity < 3 L < 3 L < 3 L </=54 ng/L Lactic Acid Level 1.6 2.9 *H 0.4-2.0 mmol/L White Blood Count 5.1 4.4-10.8 10^3/uL Red Blood Count 4.33 L 4.5-5.90 10^6/uL Hemoglobin 14.7 13.5-17.5 g/dL Hematocrit 43.6 41.0-53.0 % Mean Corpuscular Volume 100.7 H 80.0-100.0 fL Mean Corpuscular Hemoglobin 34.0 H 28.0-32.0 pg Mean Corpuscular Hemoglobin Concent 33.7 32.0-36.0 g/dL Red Cell Distribution Width 14.4 H 11.8-14.3 % Platelet Count 216 140-450 10^3/uL Mean Platelet Volume 7.6 6.9-10.8 fL Neutrophils (%) (Auto) 52.9 37.0-80.0 % Lymphocytes (%) (Auto) 37.4 10.0-50.0 % Monocytes (%) (Auto) 7.9 0.0-12.0 % Eosinophils (%) (Auto) 0.7 0.0-7.0 % Basophils (%) (Auto) 1.1 0.0-2.0 % Neutrophils # (Auto) 2.7 1.6-8.6 10 ^3/uL Lymphocytes # (Auto) 1.9 0.4-5.4 10 ^3/uL Monocytes # (Auto) 0.4 0-1.3 10 ^3/uL Eosinophils # (Auto) 0 0-0.8 10 ^3/uL Basophils # (Auto) 0.1 0-0.2 10 ^3/uL Nucleated Red Blood Cells 0.2 % Sodium Level 143 136-145 mmol/L Potassium Level 3.7 3.5-5.1 mmol/L Chloride Level 106 98-107 mmol/L Carbon Dioxide Level 24 20-31 mmol/L Anion Gap 13 5-15 Blood Urea Nitrogen 12 9-23 mg/dL Creatinine 1.18 0.700-1.30 mg/dL Glomerular Filtration Rate Calc 72 >90 mL/min BUN/Creatinine Ratio 10.2 10.0-20.0 Serum Glucose 140 H 74-106 mg/dL Calcium Level 10.5 H 8.7-10.4 mg/dL Total Bilirubin 1.6 H 0.2-1.0 mg/dL Aspartate Amino Transferase (AST) 42 H <34 U/L Alanine Aminotransferase (ALT) 28 7-40 U/L Alkaline Phosphatase 112 46-116 U/L B-Type Natriuretic Peptide 10.37 0-100 pg/mL Total Protein 7.4 5.7-8.2 g/dL Albumin 4.5 3.2-4.8 g/dL Microbiology Date/Time Source Procedure Growth Status 10/03/24 14:56 Blood Blood Culture - Final NO GROWTH AFTER 5 DAYS OF INCUBATION. Complete 10/03/24 14:40 Blood Blood Culture - Final NO GROWTH AFTER 5 DAYS OF INCUBATION. Complete [address] [address] Ph: [phone] DIAGNOSTIC IMAGING Diagnostic Imaging Report : [id number] Signed PATIENT: ALVARO DUVALL WACCT: [id number] UNIT: [id number] : 1965 LOC: ER ROOM / BED: / AGE / SEX: 58 / M ADM STATUS: REG ER SERVICE 1335 ORDERING PHYSICIAN: RONALD VENEGAS DO PROCEDURE(s): CXRP - CHEST PORTABLE REASON: sob/cp ORDER NUMBER(s): [id number], ACCESSION NUMBER(s): [id number] CHEST RADIOGRAPH Indication: sob/cp Technique: Single frontal view of the chest was obtained Comparison: XY CHEST PORTABLE on DOS: 09/20/24, XY CHEST PORTABLE on DOS: 09/01/24 , XY CHEST XRAY 1 VIEW on DOS: 07/17/24 FINDINGS: Lines and Tubes: None Lungs: Linear atelectasis left base Pleura: No effusion. No pneumothorax. Cardiomediastinal contours: Unremarkable Bones: No acute osseous abnormality. IMPRESSION: 1. Linear atelectasis left base. ATED BY: SANTIAGO SANTOS Jr., DO DICTATED DATE/TIME: 10/03/24 141 SIGNED BY: SANTIAGO SANTOS Jr., SIGNED DATE/TIME: 10/03/24 1413 CC: Time of 1ST Reevaluation: 00:00 Reevaluation 1ST: N/A Patient Education/Counseling: Diagnosis, Treatment Family Education/Counseling: No Family Present Comments Patient presented with the above HPI.---cardiac---workup was initiated. patient was found with the above mentioned diagnosis. the following medications were ordered: please refer to order lists of meds and tests obtained by myself Dr. Venegas. Patient ED course and VS have been stabilized. Patient has been reassessed in the ED and remained in a stable condition. Pertinent incidental findings were discussed with the patient and/or family. Patient/family voices understanding and is agreeable with plan. Patient has been observed in the ED adequate length of time to insure improvement/stability. Escalation of care considered: Consideration of escalation to observation or admission Given the chest x-ray findings, I started the patient on empiric antibiotics Rocephin for possible pneumonia. Patient was ADMITTED to the medicine team for further evaluation and treatment of their presentation. All the reports of any imaging studies that were ordered by myself were reviewed by myself. Departure 1 Departure Time of Disposition: 15:24 Impression: Primary Impression: Chest pain Additional Impression: Shortness of breath Disposition: ADMITTED INPATIENT Admit to: Tele Condition: Guarded e-Prescriptions Albuterol Sulfate (VENTOLIN MAX) 90 Mcg Ih 90 MCG IN QID PRN, #1 INH Prov: JUDI JARAMILLO MD 10/06/24 Hydrocodone-Acetaminophen (Hydrocodone Bitartrate/AC 10-325 mg) 1 Tab Tab 1 TAB PO QID PRN, #30 TAB Prov: JUDI JARAMILLO MD 10/06/24 Amoxicillin & Pot Clavulanate (AUGMENTIN TABLET) 875 Mg Tb 875 MG PO BID, #20 TAB Prov: JUDI JARAMILLO MD 10/06/24 Discharged With: Self Critical Care Note Critical Care Time?: No Heart Score Heart Score: Heart Score Response (Comments) Value History Moderate Suspicious 1 EKG Normal 0 Age 45-64 1 Risk Factors >3 or Hx ASHD 2 Troponin Normal limit 0 Total 4 I personally scribed for RONALD VENEGAS DO ([email or web address]) on 10/03/24 at 14:42. Electronically submitted by [place] ([facility] [place] I personally scribed for RONALD VEENGAS DO ([email or web address]) on 10/03/24 at 15:23. Electronically submitted by [place] ([facility] [place] I personally scribed for RONALD VENEGAS DO ([email or web address]) on 10/03/24 at 21:16. Electronically submitted by [place] ([facility] [place] RONALD VENEGAS DO Oct 03, 2024 14:42
[2024-10-03] MEDS: HYDROcodone-ACET 5/325MG TAB PO ONE (14:55)
[2024-10-03] MEDS: cefTRIAXone 1GM/50ML D5W 50 ML IV ONE (15:15)
[2024-10-03] MEDS: ONDANSETRON HCL 4 MG/2 ML VIAL IV ONE (15:27)
[2024-10-03 19:30] VITALS: PULSE 85; RESP 19; O2SAT 97
[2024-10-03] MEDS: MORPHINE SULFATE INJ 2 MG/ml SYRG IV ONE (20:09)
--- NOTE | 2024-10-03 22:15 | DVHHPRES ---
History of Present Illness Resident Creating Document: RAJAN CUNNINGHAM RESIDENT History of Present Illness 58-year-old old male patient with past medical history of hypertension, hyperlipidemia, CHF, pulmonary embolism, stroke, diabetes, possible sleep apnea, arthritis presented with complaints of shortness of breath, chest pain, back pain, generalized weakness and sweating for last 3-4 days. Patient mentioned that he was recently admitted in the hospital where he was diagnosed with pneumonia was discharged on doxycycline. Patient went home after discharge and starting having episodes of sweating followed by generalized weakness, shortness of breath, chest pain and back pain. Describes his chest pain as sharp and increased on deep breathing. Denied any complaints of nausea, vomiting, abdominal pain, joint pain. Medical history hypertension, hyperlipidemia, CHF, pulmonary embolism, stroke, diabetes, possible sleep apnea, arthritis Surgical history Denied any recent surgery Medication history Xarelto Irbesartan Metoprolol Social history Patient has been smoking for 20 years, quit two weeks ago. Occasional alcohol intake Denied smoking, marijuana intake Allergic history Ciprofloxacin Ibuprofen Penicillins Review of Systems Review of Systems As described in the HPI Allergies: Coded Allergies: Ciprofloxacin (Verified Allergy, Unknown, 09/20/24) Ibuprofen (Verified Allergy, Unknown, 06/18/24) Penicillins (Verified Allergy, Unknown, 06/18/24) Exam Vital Signs Vital Signs Date Time Temp Pulse Resp B/P (MAP) Pulse Ox O2 Delivery O2 Flow Rate FiO2 10/03/24 21:00 76 19 115/81 (92) 97 10/03/24 19:30 98.6 98.6 10/03/24 14:15 Room Air* 0 21 Exam Examination General Appearance: Alert, Oriented X3, Cooperative, No acute distress HEENT: EOMI Respiratory: Clear to auscultation, Normal air movement Cardiovascular: Regular rate, Normal S1, Normal S2 Abdominal: Normal bowel sounds Extremities: No cyanosis, No edema, Normal pulses, No tenderness/swelling Skin: No rashes, No breakdown Neuro: Normal gait, Normal speech, Strength at 5/5 X4 ext, Normal tone, Sensation intact, Cranial nerves 3-12 NL, Reflexes 2+ Psych/Mental Status: Mental status NL, Mood NL Labs/Xrays Labs Test 10/03/24 16:44 10/03/24 14:56 10/03/24 13:48 Range/Units Troponin I High Sensitivity < 3 L </=54 ng/L Lactic Acid Level 1.6 0.4-2.0 mmol/L White Blood Count 5.1 4.4-10.8 10^3/uL Red Blood Count 4.33 L 4.5-5.90 10^6/uL Hemoglobin 14.7 13.5-17.5 g/dL Hematocrit 43.6 41.0-53.0 % Mean Corpuscular Volume 100.7 H 80.0-100.0 fL Mean Corpuscular Hemoglobin 34.0 H 28.0-32.0 pg Mean Corpuscular Hemoglobin Concent 33.7 32.0-36.0 g/dL Red Cell Distribution Width 14.4 H 11.8-14.3 % Platelet Count 216 140-450 10^3/uL Mean Platelet Volume 7.6 6.9-10.8 fL Neutrophils (%) (Auto) 52.9 37.0-80.0 % Lymphocytes (%) (Auto) 37.4 10.0-50.0 % Monocytes (%) (Auto) 7.9 0.0-12.0 % Eosinophils (%) (Auto) 0.7 0.0-7.0 % Basophils (%) (Auto) 1.1 0.0-2.0 % Neutrophils # (Auto) 2.7 1.6-8.6 10 ^3/uL Lymphocytes # (Auto) 1.9 0.4-5.4 10 ^3/uL Monocytes # (Auto) 0.4 0-1.3 10 ^3/uL Eosinophils # (Auto) 0 0-0.8 10 ^3/uL Basophils # (Auto) 0.1 0-0.2 10 ^3/uL Nucleated Red Blood Cells 0.2 % Sodium Level 143 136-145 mmol/L Potassium Level 3.7 3.5-5.1 mmol/L Chloride Level 106 98-107 mmol/L Carbon Dioxide Level 24 20-31 mmol/L Anion Gap 13 5-15 Blood Urea Nitrogen 12 9-23 mg/dL Creatinine 1.18 0.700-1.30 mg/dL Glomerular Filtration Rate Calc 72 >90 mL/min BUN/Creatinine Ratio 10.2 10.0-20.0 Serum Glucose 140 H 74-106 mg/dL Calcium Level 10.5 H 8.7-10.4 mg/dL Total Bilirubin 1.6 H 0.2-1.0 mg/dL Aspartate Amino Transferase (AST) 42 H <34 U/L Alanine Aminotransferase (ALT) 28 7-40 U/L Alkaline Phosphatase 112 46-116 U/L B-Type Natriuretic Peptide 10.37 0-100 pg/mL Total Protein 7.4 5.7-8.2 g/dL Albumin 4.5 3.2-4.8 g/dL Assessment/Plan Assessment/Plan Assessment/plan # chest pain, rule out ACS, likely pleuritic type of chest pain, questionable pneumonia, history of pulmonary embolism -EKG Trops BNP CXR D-dimer Chest xray #elevated lactic acid, possible sepsis -IV fluids -IV antibiotics cultures #hypertension -currently normal BP #hyperlipidemia atorvastatin #chronic CHF -last echo : EF of 60% with normal RV function. #history of pulmonary embolism -therapeutic Lovenox #stroke aspirin and statins #diabetes mellitus type 2 -sliding scale insulin -hemoglobin A1C #Chronic pain -resume home Meds Case discussion with Dr Nath Plan discussed with: Patient, Other My Orders Orders - RAJAN CUNNINGHAM RESIDENT Procedure Category Date Status Time Cardiac DIET 10/04/24 Transmitted Diet-2gna,Lofat,Lochol Breakfast Admit ADMIT 10/03/24 Verified 22:13 Oxygen By Nasal RT 10/03/24 Verified Cannula 22:13 Stat Ekg For Chest [facility] 10/03/24 Verified Pain 22:13 Notify Md Of Changes [facility] 10/03/24 Verified From Base 22:13 [employer] For [facility] 10/03/24 Verified 24 Hours 22:13 Emergency Dysrhythmia [facility] 10/03/24 Verified Protocol 22:13 Rhythm Strips Once [facility] 10/03/24 Verified Every Shift 22:13 Date of Service: Oct 03, 2024 Billing Provider: CAROLE NATH MD Common Visit Codes: [id number] INP/OBS CARE (HIGH) RAJAN CUNNINGHAM Oct 03, 2024 22:15 CAROLE NATH MD Oct 04, 2024 08:49
[2024-10-04] VITALS (7 sets, daily range): BP systolic 130–153; BP diastolic 90–98; PULSE 64–86; RESP 15–20; TEMP 98.6; O2SAT 96–100
[2024-10-04] MEDS ORDERED: IPRATROPIUM BROM 0.5 MG/2.5ML INH SOL NEB PRN (00:45)
[2024-10-04] MEDS ORDERED: ALBUTEROL SULF 2.5 MG/0.5ML(0.5%) NEB SOLN NEB PRN (00:45)
[2024-10-04 01:13] LABS: INR 1.23 (0.9-1.15); Partial Thromboplastin Time 30.9 SEC (24.5-34.5); Prothrombin Time 12.8 sec (9.3-11.8)
[2024-10-04 01:21] LABS: Urine Bacteria None Seen /hpf (None Seen); Urine Blood Negative /uL (Negative); Urine Clarity Turbid (Clear); Urine Color Orange (Yellow); Urine Hyaline Cast FEW /lpf (0 - 2); Urine Mucus FEW (None Seen); Urine Protein, UAD 1+ (Negative); Urine Specific Gravity 1.039 (1.001-1.035); Urine Squamous Epithelial Cell None Seen /hpf (<5); Urine Urobilinogen Normal (Negative); Urine WBC 8 /HPF (0-3); Urine pH 5.5 (5.0-9.0)
[2024-10-04 01:24] LABS: Lactic Acid w/Reflex 2.3 mmol/L (0.4-2.0)
[2024-10-04] MEDS: HYDROcodone-ACET 10/325MG TAB PO PRN (01:26)
[2024-10-04] MEDS: ATORVASTATIN 20 MG TAB PO ONE (01:26)
[2024-10-04] MEDS: ENOXAPARIN SOD 100 MG/1 ML SYRINGE SC ONE (01:27)
[2024-10-04] MEDS ORDERED: VANCOMYCIN PER PHARMACY 0 MG IV SCH (01:30)
--- NOTE | 2024-10-04 01:32 | DVH ---
Bilateral lower extremity venous duplex Clinical History: rule out DVT Comparison: None Technique: Duplex Doppler evaluation of the deep venous systems of both lower extremities from the common femora l veins to the popliteal veins including color Doppler and spectral/pulsed waveform analysis was perf ormed. Findings: RIGHT SIDE: The common femoral vein demonstrates appropriate compressibility and waveform variability. There is compressibility/patency of the great saphenous vein at the proximal thigh. The femoral vein demonstrates appropriate compressibility and waveform variability. The deep femoral vein demonstrates appropriate compressibility and waveform variability. The popliteal vein demonstrates appropriate compressibility and waveform variability. There is normal compressibility at the tibioperoneal trunk. LEFT SIDE: The common femoral vein demonstrates appropriate compressibility and waveform variability. There is compressibility/patency of the great saphenous vein at the proximal thigh. The femoral vein demonstrates appropriate compressibility and waveform variability. The deep femoral vein demonstrates appropriate compressibility and waveform variability. The popliteal vein demonstrates appropriate compressibility and waveform variability. There is normal compressibility at the tibioperoneal trunk. Impression: 1. No right or left femoropopliteal venous thrombosis.
[2024-10-04 01:33] LABS: Cannabinoid Screen, Urine Pos (NEGATIVE)
--- NOTE | 2024-10-04 01:40 | ECG ---
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
[2024-10-04 01:41] LABS: Amphetamine Screen, Urine Neg (NEGATIVE); Barbiturate Scree,Urine Neg (NEGATIVE); Benzodiazephine Screen, Urine Neg (NEGATIVE); Cocaine Screen, Urine Neg (NEGATIVE); Opiate Scree,Urine Pos (NEGATIVE); Phencyclidine Screen, Urine Neg (NEGATIVE)
[2024-10-04] MEDS: SODIUM CHLORIDE 0.9% 500 ML IV ONE (01:48)
[2024-10-04 01:49] LABS: Erythrocyte Sedimentation Rate 7 mm/hr (0-20)
[2024-10-04] MEDS ORDERED: VANCOMYCIN 1GM/200ML PM 200 ML IV SCH ×2 (02:00→03:30)
[2024-10-04] MEDS: CEFEPIME 2GM/50ML NS 50 ML IV ONE (02:10)
[2024-10-04 02:25] LABS: Rapid Influenza A Negative (Negative); Rapid Influenza B Negative (Negative)
[2024-10-04 02:26] LABS: COVID19 ANTIGEN SOFIA FIA NEGATIVE (NEGATIVE)
[2024-10-04] MEDS ORDERED: DEXTROSE (50%) 50ML SYRG IV PRN (03:30)
[2024-10-04] MEDS: InsuLIN REG 1unit/0.01ml Soln (100units/ml) SC SCH (05:25)
[2024-10-04] MEDS: ACCU-CHEK COMFORT CURVE STRIP VI SCH (05:26)
[2024-10-04] MEDS ORDERED: CEFEPIME 2GM/50ML NS 50 ML IV SCH (06:00)
[2024-10-04 06:06] LABS: Basophils # (auto) 0 10 ^3/uL (0-0.2); Basophils % (auto) 0.8 % (0.0-2.0); Eosinophils # (auto) 0.1 10 ^3/uL (0-0.8); Eosinophils % (auto) 2.4 % (0.0-7.0); Hematocrit 39.6 % (41.0-53.0); Hemoglobin 13.4 g/dL (13.5-17.5); Lymphocytes # (auto) 2.3 10 ^3/uL (0.4-5.4); Lymphocytes % (auto) 50.6 % (10.0-50.0); Mean Corpuscular Hemoglobin 34.7 pg (28.0-32.0); Mean Corpuscular Hgb Conc. 33.9 g/dL (32.0-36.0); Mean Corpuscular Volume 102.4 fL (80.0-100.0); Monocytes # (auto) 0.4 10 ^3/uL (0-1.3); Monocytes % (auto) 8.1 % (0.0-12.0); Neutrophils # (auto) 1.7 10 ^3/uL (1.6-8.6); Neutrophils % (auto) 38.1 % (37.0-80.0); Nucleated Red Blood Cells % 0.2 %; Platelet Count (auto) 147 10^3/uL (140-450); Red Blood Cells 3.86 10^6/uL (4.5-5.90); Red Cell Distribution Width 14.2 % (11.8-14.3); White Blood Cell 4.5 10^3/uL (4.4-10.8)
[2024-10-04] MEDS: VANCOMYCIN 1GM/200ML PM 200 ML IV SCH (07:35)
[2024-10-04 08:10] LABS: Alanine Aminotransferase 27 U/L (7-40); Albumin 3.8 g/dL (3.2-4.8); Alkaline Phosphatase 93 U/L (46-116); Anion Gap 13 (5-15); BUN/Creatinine Ratio 12.2 (10.0-20.0); Blood Urea Nitrogen 11 mg/dL (9-23); Glucose 104 mg/dL (74-106); Magnesium 1.7 mg/dL (1.6-2.6); Potassium 3.9 mmol/L (3.5-5.1); Sodium 141 mmol/L (136-145); Total Protein 6.6 g/dL (5.7-8.2)
[2024-10-04 08:17] LABS: Aspartate Aminotransferase 47 U/L (<34); Bilirubin, Total 1.3 mg/dL (0.2-1.0); Carbon Dioxide 17 mmol/L (20-31); Chloride 111 mmol/L (98-107)
[2024-10-04] MEDS: ASPirin 81 mg TAB PO SCH (10:25)
[2024-10-04] MEDS: cefTRIAXone 1GM/50ML D5W 50 ML IV SCH (11:18)
--- NOTE | 2024-10-04 13:33 | DVHPN2 ---
Reviewed: Care Plan, H&P, Labs, Medications, Previous Orders, Radiology Changes from previous H/P or p: No Changes Objective Vitals Vital Signs Date Time Temp Pulse Resp B/P (MAP) Pulse Ox O2 Delivery O2 Flow Rate FiO2 10/04/24 13:08 82 19 128/84 (99) 98 10/04/24 11:25 Nasal Cannula* 2 10/03/24 19:30 98.6 98.6 Intake/Output Intake and Output 10/04/24 07:00 Intake Total 1600.0 ml Balance 1600.0 ml Intake IV Total 1600.0 ml Medications Current Medications Medications Dose Ordered Sig/Carlos Route Start Time Stop Time Status Last Admin Dose Admin Ipratropium [place] 0.5 mg Q4HPRN PRN NEB 10/04/24 00:45 Albuterol 2.5 mg Q4HPRN PRN NEB 10/04/24 00:45 Aspirin 81 mg DAILY PO 10/04/24 10:00 10/04/24 10:25 81 MG Atorvastatin Calcium 40 mg HS PO 10/04/24 22:00 Acetaminophen/ Hydrocodone Bitart 1 tab Q4HPRN PRN PO 10/04/24 01:00 10/04/24 12:24 1 TAB Ceftriaxone Sodium 50 ml @ 100 mls/hr DAILY@09 IV 10/04/24 09:00 10/04/24 11:18 100 MLS/HR Cefepime HCl 50 ml @ 12.5 mls/hr Q8HR IV 10/04/24 06:00 UNV Vancomycin HCl 0 ml @ 0 mls/hr UD IV 10/04/24 01:30 Diagnostic Test (Pha) 1 strip IQ4HR 10/04/24 04:00 10/04/24 12:01 1 STRIP Insulin Human Regular IQ4HR SC 10/04/24 04:00 Dextrose 50 ml UD PRN IV 10/04/24 03:30 Vancomycin HCl 250 ml @ 200 mls/hr Q12H IV 10/04/24 19:00 Laboratory Results Laboratory Tests 10/04/24 05:14 Chemistry Test 10/03/24 13:48 10/04/24 05:14 Albumin 4.5 g/dL (3.2-4.8) 3.8 g/dL (3.2-4.8) Calcium Level 10.5 mg/dL (8.7-10.4) H 10.0 mg/dL (8.7-10.4) Total Protein 7.4 g/dL (5.7-8.2) 6.6 g/dL (5.7-8.2) Magnesium Level 1.7 mg/dL (1.6-2.6) Coagulation Test 10/04/24 00:45 Prothrombin Time 12.8 sec (9.3-11.8) H Prothrombin Time INR 1.23 (0.9-1.15) H Activated Partial Thromboplast Time 30.9 SEC (24.5-34.5) D-Dimer, Quantitative 0.23 mg/L FEU (0.0-0.49) Cardiac Markers Test 10/03/24 13:48 10/04/24 05:14 B-Type Natriuretic Peptide 10.37 pg/mL (0-100) 5.08 pg/mL (0-100) LFT Test 10/03/24 13:48 10/04/24 05:14 Alanine Aminotransferase (ALT) 28 U/L (7-40) 27 U/L (7-40) Alkaline Phosphatase 112 U/L (46-116) 93 U/L (46-116) Aspartate Amino Transferase (AST) 42 U/L (<34) H 47 U/L (<34) H Total Bilirubin 1.6 mg/dL (0.2-1.0) H 1.3 mg/dL (0.2-1.0) H HgA1c, TSH Test 10/04/24 05:14 Hemoglobin A1c 4.7 % A1C (<5.7) Urinalysis Test 10/04/24 01:28 Urine Color [place] (Yellow) H Urine Clarity Turbid (Clear) H Urine pH 5.5 (5.0-9.0) Urine Specific [place] 1.039 (1.001-1.035) Urine Protein 1+ (Negative) H Urine Ketones Trace (Negative) Urine Blood Negative /uL (Negative) Urine Nitrite Negative (Negative) Urine Bilirubin Negative (Negative) Urine Urobilinogen Normal mg/dL (Negative) Urine Leukocyte Esterase Negative /uL (Negative) Urine RBC <1 /hpf (0 - 3) Urine Microscopic WBC 8 /HPF (0-3) H Urine Squamous Epithelial Cells None seen /hpf (<5) Urine Bacteria None seen /hpf (None Seen) Urine Hyaline Casts Few /lpf (0 - 2) Urine Mucus Few (None Seen) Urine Glucose Trace mg/dL (Normal) Microbiology Microbiology Date/Time Source Procedure Growth Status 10/04/24 10:46 Nose MRSA Screen - Final Complete Labs and/or images reviewed: Labs reviewed by me, Image(s) reviewed by me Assessment/Plan Assessment/Plan Noncardiac chest pain troponin negative x3: Cardiology consult for Dr. Olivera Hypertension Acute community-acquired Bilateral pneumonia Gram-negative versus Gram-positive: Vancomycin cefepime History of PE : On Xarelto Cristal test negative Flu test negative Uncontrolled diabetes: Insulin sliding scale History of CVA with left hemiplegia Acute on chronic diastolic heart failure echo 60 % June 2024 Possible obstructive sleep apnea Chronic pain syndrome: [place] 10 q.6 hours per patient's request Chronic current marijuana abuse: Counseling Moderate obesity Depression continue Remeron BuSpar Zyprexa Discharged from this hospital on 09/23/2024 Time spent 70 minutes Plan discussed with: Patient Date of Service: Oct 04, 2024 Billing Provider: JUDI JARAMILLO MD Common Visit Codes: [id number] CARE 30-74 MIN JUDI JARAMILLO MD Oct 04, 2024 13:33
[2024-10-04] MEDS: VANCOMYCIN 1.25GM/250ML 250 ML IV SCH (19:55)
[2024-10-04] MEDS: ATORVASTATIN 20 MG TAB PO SCH (21:24)
--- NOTE | 2024-10-04 23:30 | DVHINCON2 ---
Date of service: Oct 04, 2024 Referring Physician Rogelio Reason for Consultation Chest pain History of Present Illness This is a 58-year-old male with a past medical history of diabetes, CVA, CHF, sleep apnea, chronic pain syndrome, depression who presented to the ED on 10/03 with complaints of chest pain. Patient was recently admitted to [facility] and was seen by probation worker Dr. Webb and underwent an a echo which revealed 60 percent ejection fraction June 2024. The patient is also on Xarelto for history of PE. Bilateral lower extremity venous duplex is negative for DVT. Chest x-ray shows linear atelectasis left base. UDS + opiates and THC. LA 2.9. Troponin is negative x3. Patient was admitted to the hospital. I am asked to consult on this patient. Family History: Arthritis G8 FATHER, FH: rheumatoid arthritis G8 MOTHER, Allergies: Coded Allergies: Ciprofloxacin (Verified Allergy, Unknown, 09/20/24) Ibuprofen (Verified Allergy, Unknown, 06/18/24) Penicillins (Verified Allergy, Unknown, 06/18/24) Home Meds Active Scripts Doxycycline (Monohydrate) (Doxycycline) 100 Mg Cap, 100 MG PO BID, #20 CAP Prov:JUDI JARAMILLO MD 09/25/24 Hydrocodone-Acetaminophen (Hydrocodone Bitartrate/AC 10-325 mg) 1 Tab Tab, 1 TAB PO QID PRN, #30 TAB Prov:JUDI JARAMILLO MD 09/23/24 Albuterol Sulfate (VENTOLIN MDI) 90 Mcg Ih, 90 MCG IN QID PRN, #1 INH Prov:JUDI JARAMILLO MD 09/23/24 Aspirin (Aspirin Low Dose) 81 Mg Chw, 1 TAB PO DAILY for 30 Days, #30 TAB 3 Refills Prov:ROSAMARIA ANNA RESIDENT 06/20/24 Reported Medications Atorvastatin Calcium (ATORVASTATIN CALCIUM) 40 Mg Tab, 1 TAB PO QPM for 90 Days, #90 09/03/24 Rivaroxaban (Xarelto Tablet) 20 Mg Tb, 1 TAB PO DAILY for 9 Days, #9 09/03/24 Famotidine (Famotidine) 20 Mg Tab, 1 TAB PO DAILYPRN for 30 Days, #30 09/03/24 Meloxicam (Meloxicam) 15 Mg Tab, 1 TAB PO DAILY for 30 Days, #30 09/03/24 Ipratropium-Albuterol (COMBIVENT RESPIMAT) Respimat Aer, 1 PUFF INH QID for 30 Days, #4 09/03/24 Trazodone Hcl (Trazodone Hcl) 100 Mg Tab, 1 TAB PO HS for 90 Days, #90 09/03/24 Buspirone Hcl (Buspirone Hcl) 15 Mg Tab, 1 TAB PO DAILY for 90 Days, #90 09/03/24 Olanzapine (OLANZAPINE) 5 Mg Tab, 1 TAB PO HS for 30 Days, #30 09/03/24 Mirtazapine (Mirtazapine Oral Disintegrating Tablet) 30 Mg Tab, 1 TAB PO HS for 30 Days, #30 09/03/24 Hydroxyzine Hcl (Hydroxyzine Hcl) 25 Mg Tab, 1 TAB PO DAILYPRN for 30 Days, #30 09/03/24 Albuterol Sulfate (Albuterol Sulfate Hfa) 108 Mcg/Act Aer, 2 PUFF INH Q6H 06/19/24 Metoprolol Succinate (Metoprolol Succinate Er) 100 Mg Tab, 1 TAB PO DAILY 06/19/24 Irbesartan (IRBESARTAN) 150 Mg Tab, 1 TAB PO DAILY 06/19/24 Hydrocodone-Acetaminophen (Hydrocodone/Acetaminophen 10-325 mg) 1 Tab Tab, 1 TAB PO Q6HP PRN for PAIN SCALE 7 THRU 10 06/19/24 Current Medications Current Medications Medications (Trade) Dose Ordered Sig/Carlos Route PRN Reason Start Time Stop Time Status Last Admin Ipratropium [place] (Atrovent Medneb) 0.5 mg Q4HPRN PRN NEB SHORTNESS OF BREATH 10/04/24 00:45 Albuterol (Ventolin Medneb) 2.5 mg Q4HPRN PRN NEB SHORTNESS OF BREATH 10/04/24 00:45 Aspirin 81 mg DAILY PO 10/04/24 10:00 10/04/24 10:25 Atorvastatin Calcium (Lipitor) 40 mg HS PO 10/04/24 22:00 Acetaminophen/ Hydrocodone Bitart ([place] 10/325MG Tab) 1 tab Q4HPRN PRN PO SEVERE PAIN (7-10 PAIN SCALE) 10/04/24 01:00 10/04/24 16:30 Ceftriaxone Sodium 50 ml @ 100 mls/hr DAILY@09 IV 10/04/24 09:00 10/04/24 11:18 Cefepime HCl 50 ml @ 12.5 mls/hr Q8HR IV 10/04/24 06:00 UNV Vancomycin HCl 0 ml @ 0 mls/hr UD IV 10/04/24 01:30 Vancomycin HCl 200 ml @ 120 mls/hr Q2H IV 10/04/24 02:00 10/04/24 03:30 DC Vancomycin HCl 200 ml @ 120 mls/hr Q2H IV 10/04/24 03:30 10/04/24 03:30 DC Diagnostic Test (Pha) (Accu-Chek Comfort Curve T) 1 strip IQ4HR 10/04/24 04:00 10/04/24 20:08 Insulin Human Regular (InsuLIN R) IQ4HR SC 10/04/24 04:00 Dextrose 50 ml UD PRN IV Blood Sugar LESS THAN 60 10/04/24 03:30 Vancomycin HCl 200 ml @ 120 mls/hr Q2H IV 10/04/24 07:00 10/04/24 10:39 DC 10/04/24 09:28 Vancomycin HCl 250 ml @ 200 mls/hr Q12H IV 10/04/24 19:00 10/04/24 19:55 Review of Systems CONSTITUTIONAL: Denies acute: fever, diaphoresis, chills, generalized weakness. HEAD:Denies acute: headache, photophobia Eyes:Denies acute: Double vision, vision loss, eye pain, eye discharge. EARS: Denies acute: tinnitus, hearing loss, ear discharge, ear pain, THROAT: Denies acute: sore throat, swelling, difficulty swallowing , pain with swallowing, change in voice. NECK:Denies acute: neck pain, neck swelling, stiff neck. HEART:Denies acute : palpitations, LUNGS:Denies acute: wheezing, cough, hemoptysis ABDOMEN:Denies acute: abdominal pain, Nausea, Vomiting, diarrhea, melena , hematemesis, hematochezia SKIN:Denies acute: rash, redness, lesions, itchiness. EXTREMITIES: Denies acute: calf pain, numbness, tingling, weakness, denies pain in extremity.Denies acute: Low back pain. Neuro: Denies acute: focal neurological deficit, motor or sensory focal neurological deficit, tremors, seizure like activity, confusion, change in mental status, loss of bowel or bladder function, cauda equina like symptoms. : Denies acute: dysuria, hematuria, flank pain, increase in urinary frequency. PSYCH: Denies acute: hallucination, suicidal ideation, homicidal ideation. Vital Signs Vital Signs Date Time Temp Pulse Resp B/P (MAP) Pulse Ox O2 Delivery O2 Flow Rate FiO2 10/04/24 20:00 77 10/04/24 19:10 98 Nasal Cannula 3.0 10/04/24 19:10 32 10/04/24 18:00 19 123/79 (94) 10/03/24 19:30 98.6 98.6 Physical Exam GENERAL: Alert and oriented x 3. No acute distress. Obese. EYES: PERRL, EOMI. Anicteric. HENT: Moist mucous membranes. LUNGS: Clear to auscultation bilaterally. CARDIOVASCULAR: Regular rate and rhythm. ABDOMEN: Soft, nontender and nondistended. EXTREMITIES: No edema. NEUROLOGIC: No focal neurological deficits. SKIN: Warm, dry. Labs/Diagnostic Data Labs Test 10/04/24 20:06 10/04/24 05:14 10/04/24 01:28 10/04/24 01:15 Range/Units POC Glucose 91 70-106 mg/dl White Blood Count 4.5 4.4-10.8 10^3/uL Red Blood Count 3.86 L 4.5-5.90 10^6/uL Hemoglobin 13.4 L 13.5-17.5 g/dL Hematocrit 39.6 L 41.0-53.0 % Mean Corpuscular Volume 102.4 H 80.0-100.0 fL Mean Corpuscular Hemoglobin 34.7 H 28.0-32.0 pg Mean Corpuscular Hemoglobin Concent 33.9 32.0-36.0 g/dL Red Cell Distribution Width 14.2 11.8-14.3 % Platelet Count 147 140-450 10^3/uL Mean Platelet Volume 8.4 6.9-10.8 fL Neutrophils (%) (Auto) 38.1 37.0-80.0 % Lymphocytes (%) (Auto) 50.6 H 10.0-50.0 % Monocytes (%) (Auto) 8.1 0.0-12.0 % Eosinophils (%) (Auto) 2.4 0.0-7.0 % Basophils (%) (Auto) 0.8 0.0-2.0 % Neutrophils # (Auto) 1.7 1.6-8.6 10 ^3/uL Lymphocytes # (Auto) 2.3 0.4-5.4 10 ^3/uL Monocytes # (Auto) 0.4 0-1.3 10 ^3/uL Eosinophils # (Auto) 0.1 0-0.8 10 ^3/uL Basophils # (Auto) 0 0-0.2 10 ^3/uL Nucleated Red Blood Cells 0.2 % Sodium Level 141 136-145 mmol/L Potassium Level 3.9 3.5-5.1 mmol/L Chloride Level 111 H 98-107 mmol/L Carbon Dioxide Level 17 L 20-31 mmol/L Anion Gap 13 5-15 Blood Urea Nitrogen 11 9-23 mg/dL Creatinine 0.90 0.700-1.30 mg/dL Glomerular Filtration Rate Calc 100 >90 mL/min BUN/Creatinine Ratio 12.2 10.0-20.0 Serum Glucose 104 74-106 mg/dL Hemoglobin A1c 4.7 <5.7 % A1C Lactic Acid Level 1.3 0.4-2.0 mmol/L Calcium Level 10.0 8.7-10.4 mg/dL Magnesium Level 1.7 1.6-2.6 mg/dL Total Bilirubin 1.3 H 0.2-1.0 mg/dL Aspartate Amino Transferase (AST) 47 H <34 U/L Alanine Aminotransferase (ALT) 27 7-40 U/L Alkaline Phosphatase 93 46-116 U/L B-Type Natriuretic Peptide 5.08 0-100 pg/mL Total Protein 6.6 5.7-8.2 g/dL Albumin 3.8 3.2-4.8 g/dL Urine Color [place] H Yellow Urine Clarity Turbid H Clear Urine pH 5.5 5.0-9.0 Urine Specific [place] 1.039 H 1.001-1.035 Urine Protein 1+ H Negative Urine Ketones Trace Negative Urine Blood Negative Negative /uL Urine Nitrite Negative Negative Urine Bilirubin Negative Negative Urine Urobilinogen Normal Negative mg/dL Urine Leukocyte Esterase Negative Negative /uL Urine RBC <1 0 - 3 /hpf Urine Microscopic WBC 8 H 0-3 /HPF Urine Squamous Epithelial Cells None seen <5 /hpf Urine Bacteria None seen None Seen /hpf Urine Hyaline Casts Few 0 - 2 /lpf Urine Mucus Few None Seen Urine Glucose Trace Normal mg/dL Urine Opiates Screen Pos NEGATIVE Urine Fentanyl Screen Neg NEGATIVE Urine Barbiturates Screen Neg NEGATIVE Urine Phencyclidine Screen Neg NEGATIVE Urine Amphetamines Screen Neg NEGATIVE Urine Benzodiazepines Screen Neg NEGATIVE Urine Cocaine Screen Neg NEGATIVE Urine Cannabinoids Screen Pos NEGATIVE Influenza Type A Antigen Negative Negative Influenza Type B Antigen Negative Negative SARS-CoV-2 Antigen (Rapid) Negative NEGATIVE Test 10/04/24 00:45 Range/Units Erythrocyte Sedimentation Rate 7 0-20 mm/hr Prothrombin Time 12.8 H 9.3-11.8 sec Prothrombin Time INR 1.23 H 0.9-1.15 Activated Partial Thromboplast Time 30.9 24.5-34.5 SEC D-Dimer, Quantitative 0.23 0.0-0.49 mg/L FEU Troponin I High Sensitivity < 3 L </=54 ng/L C-Reactive Protein High Sensitivity 0.22 <1.0 mg/dL Microbiology Date/Time Source Procedure Growth Status 10/04/24 10:46 Nose MRSA Screen - Final Complete 10/03/24 14:56 Blood Blood Culture - Preliminary NO GROWTH AFTER 24 HOURS OF INCUBATION. Resulted Assessment Noncardiac chest pain. Hypertension. Acute community-acquired bilateral pneumonia. History of PE. Uncontrolled diabetes. History of CVA with left hemiplegia. Acute on chronic diastolic heart failure echo 60 % June 2024. Chronic pain syndrome. Chronic current marijuana abuse. Moderate obesity. Depression. Plan/Recommendation I agree with your ongoing assessment and care of plan. [place] for pain management. Aspirin, Lipitor. IV antibiotics as ordered. Additional plan as per the hospital course. A total of 45 minutes was spent reviewing the patient record, examining the patient, making a diagnostic and therapeutic plan, discussing this plan with medical personnel, following up on diagnostic studies and following the patient for clinical stability excluding any and all procedures. At least 50% of this time was spent in direct, [id number] contact. Plan discussed with: Patient BULL CRUZ MD Oct 04, 2024 20:38
[2024-10-05] VITALS (11 sets, daily range): BP systolic 122–146; BP diastolic 70–90; PULSE 60–108; RESP 16–22; TEMP 97–98.5; O2SAT 95–99
--- NOTE | 2024-10-05 11:09 | DVHPN2 ---
Reviewed: Care Plan, H&P, Labs, Medications, Previous Orders, Radiology Changes from previous H/P or p: No Changes Objective Vitals Vital Signs Date Time Temp Pulse Resp B/P (MAP) Pulse Ox O2 Delivery O2 Flow Rate FiO2 10/05/24 10:05 98 Room Air* 0 21 10/05/24 08:30 97.0 71 16 122/71 (88) 97.0 Intake/Output Intake and Output 10/05/24 07:00 Intake Total 500 ml Output Total 700 ml Balance -200 ml Intake Oral 400 ml IV Total 100 ml Output Urine Total 700 ml Medications Current Medications Medications Dose Ordered Sig/Carlos Route Start Time Stop Time Status Last Admin Dose Admin Ipratropium [place] 0.5 mg Q4HPRN PRN NEB 10/04/24 00:45 Albuterol 2.5 mg Q4HPRN PRN NEB 10/04/24 00:45 Aspirin 81 mg DAILY PO 10/04/24 10:00 10/05/24 09:02 81 MG Atorvastatin Calcium 40 mg HS PO 10/04/24 22:00 10/04/24 21:24 40 MG Acetaminophen/ Hydrocodone Bitart 1 tab Q4HPRN PRN PO 10/04/24 01:00 10/05/24 09:02 1 TAB Ceftriaxone Sodium 50 ml @ 100 mls/hr DAILY@09 IV 10/04/24 09:00 10/05/24 10:45 100 MLS/HR Cefepime HCl 50 ml @ 12.5 mls/hr Q8HR IV 10/04/24 06:00 UNV Vancomycin HCl 0 ml @ 0 mls/hr UD IV 10/04/24 01:30 Vancomycin HCl 250 ml @ 200 mls/hr Q12H IV 10/04/24 19:00 10/05/24 07:11 200 MLS/HR Laboratory Results Laboratory Tests 10/04/24 05:14 Urinalysis Test 10/04/24 01:28 Urine Color [place] (Yellow) H Urine Clarity Turbid (Clear) H Urine pH 5.5 (5.0-9.0) Urine Specific [place] 1.039 (1.001-1.035) Urine Protein 1+ (Negative) H Urine Ketones Trace (Negative) Urine Blood Negative /uL (Negative) Urine Nitrite Negative (Negative) Urine Bilirubin Negative (Negative) Urine Urobilinogen Normal mg/dL (Negative) Urine Leukocyte Esterase Negative /uL (Negative) Urine RBC <1 /hpf (0 - 3) Urine Microscopic WBC 8 /HPF (0-3) H Urine Squamous Epithelial Cells None seen /hpf (<5) Urine Bacteria None seen /hpf (None Seen) Urine Hyaline Casts Few /lpf (0 - 2) Urine Mucus Few (None Seen) Urine Glucose Trace mg/dL (Normal) Microbiology Microbiology Date/Time Source Procedure Growth Status 10/04/24 10:46 Nose MRSA Screen - Final Complete 10/04/24 01:28 Voided Urine Urine Culture - Preliminary Resulted 10/03/24 14:56 Blood Blood Culture - Preliminary NO GROWTH AFTER 24 HOURS OF INCUBATION. Resulted Labs and/or images reviewed: Labs reviewed by me, Image(s) reviewed by me Assessment/Plan Assessment/Plan Noncardiac chest pain troponin negative x3: Cardiology consult for Dr. Olivera appreciated Hypertension Acute community-acquired Bilateral pneumonia Gram-negative versus Gram-positive: Vancomycin cefepime History of PE : On Xarelto Cristal test negative Flu test negative Uncontrolled diabetes: Insulin sliding scale History of CVA with left hemiplegia Acute on chronic diastolic heart failure echo 60 % June 2024 Possible obstructive sleep apnea Chronic pain syndrome: [place] 10 q.6 hours per patient's request Chronic current marijuana abuse: Counseling Moderate obesity DVT ruled out Depression continue Remeron BuSalexandre Zyprexa Discharged from this hospital on 09/23/2024 Time spent 70 minutes Plan discussed with: Patient My Orders Orders - JUDI JARAMILLO MD Procedure Category Date Status Time * Cardiology Consult CONS 10/04/24 Transmitted 13:37 Date of Service: Oct 05, 2024 Billing Provider: JUDI JARAMILLO MD Common Visit Codes: [id number] INP/OBS CARE(HIGH) JUDI JARAMILLO MD Oct 05, 2024 11:09
--- NOTE | 2024-10-05 22:47 | DVHPN2 ---
Progress Note - Dictate Date Seen: Oct 05, 2024 Medical Necessity Reason Pt with a Central, PICC or Fol: No Subjective Patient was seen and evaluated in follow up. Patient is on 1 LPM NC. Patient complains of generalized pain. MRSA is negative. Blood and urine culture are pending. Telemetry reviewed. vital signs Vital Sign Date Time Temp Pulse Resp B/P (MAP) Pulse Ox O2 Delivery O2 Flow Rate FiO2 10/05/24 16:50 97.0 108 18 146/90 (108) 99 97.0 10/05/24 10:05 Room Air* 0 21 Total Intake and Output 10/04/24 10/04/24 10/05/24 15:00 23:00 07:00 Intake Total 100 ml 400 ml Output Total 700 ml Balance 100 ml -300 ml medications Current Medications Medications Dose Ordered Sig/Carlos Route Start Time Stop Time Status Last Admin Dose Admin Ipratropium [place] 0.5 mg Q4HPRN PRN NEB 10/04/24 00:45 Albuterol 2.5 mg Q4HPRN PRN NEB 10/04/24 00:45 Aspirin 81 mg DAILY PO 10/04/24 10:00 10/05/24 09:02 81 MG Atorvastatin Calcium 40 mg HS PO 10/04/24 22:00 10/04/24 21:24 40 MG Acetaminophen/ Hydrocodone Bitart 1 tab Q4HPRN PRN PO 10/04/24 01:00 10/05/24 18:18 1 TAB Ceftriaxone Sodium 50 ml @ 100 mls/hr DAILY@09 IV 10/04/24 09:00 10/05/24 10:45 100 MLS/HR Cefepime HCl 50 ml @ 12.5 mls/hr Q8HR IV 10/04/24 06:00 UNV objective GENERAL: Alert and oriented x 3. No acute distress. Obese. EYES: PERRL, EOMI. Anicteric. HENT: Moist mucous membranes. LUNGS: Clear to auscultation bilaterally. CARDIOVASCULAR: Regular rate and rhythm. ABDOMEN: Soft, nontender and nondistended. EXTREMITIES: No edema. NEUROLOGIC: No focal neurological deficits. SKIN: Warm, dry. laboratory and microbiology Laboratory Tests 10/04/24 05:14 Test 10/04/24 05:14 Range/Units Serum Glucose 104 74-106 mg/dL Problem List Noncardiac chest pain. Hypertension. Acute community-acquired bilateral pneumonia. History of PE. Uncontrolled diabetes. History of CVA with left hemiplegia. Acute on chronic diastolic heart failure echo 60 % June 2024. Chronic pain syndrome. Chronic current marijuana abuse. Moderate obesity. Depression. Assessment/Plan Continued all current supportive medical care. [place] for pain management. Aspirin, Lipitor. IV antibiotics as ordered. Additional plan as per the hospital course. Plan discussed with: Patient BULL CRUZ MD Oct 05, 2024 18:26
[2024-10-06] VITALS (8 sets, daily range): BP systolic 105–140; BP diastolic 62–75; PULSE 68–88; RESP 16–20; TEMP 36.4; O2SAT 94–99
--- NOTE | 2024-10-06 06:36 | DVH ---
EXAM: XR Chest, 1 View CLINICAL INDICATION: Pain TECHNIQUE: Frontal view of the chest. COMPARISON: No relevant prior studies available. FINDINGS: LUNGS AND PLEURAL SPACES: See below. HEART: Cardiomegaly with mild congestion. MEDIASTINUM: Unremarkable. Normal mediastinal contour. BONES/JOINTS: Unremarkable. No acute fracture. IMPRESSION: Cardiomegaly with mild congestion.
[2024-10-06 06:41] LABS: Basophils # (auto) 0 10 ^3/uL (0-0.2); Eosinophils # (auto) 0.1 10 ^3/uL (0-0.8); Hemoglobin 11.6 g/dL (13.5-17.5); Lymphocytes # (auto) 1.2 10 ^3/uL (0.4-5.4); Mean Corpuscular Hemoglobin 34.8 pg (28.0-32.0); Mean Corpuscular Hgb Conc. 34.1 g/dL (32.0-36.0); Mean Corpuscular Volume 102.1 fL (80.0-100.0); Platelet Count (auto) 129 10^3/uL (140-450); Red Blood Cells 3.33 10^6/uL (4.5-5.90)
[2024-10-06 06:44] LABS: Basophils % (auto) 0.8 % (0.0-2.0); Lymphocytes % (auto) 44.5 % (10.0-50.0); Monocytes # (auto) 0.3 10 ^3/uL (0-1.3); Monocytes % (auto) 12.5 % (0.0-12.0); Neutrophils % (auto) 37.2 % (37.0-80.0); Nucleated Red Blood Cells % 0.1 %; Red Cell Distribution Width 14.2 % (11.8-14.3); White Blood Cell 2.6 10^3/uL (4.4-10.8)
[2024-10-06 07:01] LABS: Alanine Aminotransferase 47 U/L (7-40); Albumin 3.3 g/dL (3.2-4.8); Alkaline Phosphatase 88 U/L (46-116); Anion Gap 6 (5-15); Aspartate Aminotransferase 60 U/L (<34); BUN/Creatinine Ratio 13.3 (10.0-20.0); Bilirubin, Total 0.6 mg/dL (0.2-1.0); Blood Urea Nitrogen 11 mg/dL (9-23); Calcium 9.2 mg/dL (8.7-10.4); Carbon Dioxide 26 mmol/L (20-31); Chloride 108 mmol/L (98-107); Glucose 96 mg/dL (74-106); Potassium 4.2 mmol/L (3.5-5.1); Sodium 140 mmol/L (136-145); Total Protein 5.6 g/dL (5.7-8.2)
[2024-10-06 10:24] LABS: Hepatitis B Surface Antigen Negative (Negative)
[2024-10-06 10:32] LABS: Hepatitis C Antibody Negative (Negative)
--- NOTE | 2024-10-06 12:06 | DVHPN2 ---
Reviewed: Care Plan, H&P, Labs, Medications, Previous Orders, Radiology Changes from previous H/P or p: No Changes Objective Vitals Vital Signs Date Time Temp Pulse Resp B/P (MAP) Pulse Ox O2 Delivery O2 Flow Rate FiO2 10/06/24 10:02 99 Room Air 10/06/24 10:02 0 21 10/06/24 09:00 97.6 78 20 105/62 (76) 97.6 Intake/Output Intake and Output 10/06/24 07:00 Intake Total 1700 ml Output Total 800 ml Balance 900 ml Intake Oral 1400 ml IV Total 300 ml Output Urine Total 800 ml # Voids 4 # Bowel Movements 1 Medications Current Medications Medications Dose Ordered Sig/Carlos Route Start Time Stop Time Status Last Admin Dose Admin Ipratropium [place] 0.5 mg Q4HPRN PRN NEB 10/04/24 00:45 Cancel Albuterol 2.5 mg Q4HPRN PRN NEB 10/04/24 00:45 Cancel Aspirin 81 mg DAILY PO 10/04/24 10:00 10/06/24 08:07 81 MG Atorvastatin Calcium 40 mg HS PO 10/04/24 22:00 10/05/24 22:59 40 MG Acetaminophen/ Hydrocodone Bitart 1 tab Q4HPRN PRN PO 10/04/24 01:00 10/06/24 10:52 1 TAB Ceftriaxone Sodium 50 ml @ 100 mls/hr DAILY@09 IV 10/04/24 09:00 10/06/24 08:06 100 MLS/HR Cefepime HCl 50 ml @ 12.5 mls/hr Q8HR IV 10/04/24 06:00 UNV Laboratory Results Laboratory Tests 10/06/24 05:30 Chemistry Test 10/06/24 05:30 Albumin 3.3 g/dL (3.2-4.8) Calcium Level 9.2 mg/dL (8.7-10.4) Total Protein 5.6 g/dL (5.7-8.2) L LFT Test 10/06/24 05:30 Alanine Aminotransferase (ALT) 47 U/L (7-40) H Alkaline Phosphatase 88 U/L (46-116) Aspartate Amino Transferase (AST) 60 U/L (<34) H Total Bilirubin 0.6 mg/dL (0.2-1.0) Urinalysis Test 10/04/24 01:28 Urine Color [place] (Yellow) H Urine Clarity Turb[place] (Clear) H Urine pH 5.5 (5.0-9.0) Urine Specific [place] 1.039 (1.001-1.035) Urine Protein 1+ (Negative) H Urine Ketones Trace (Negative) Urine Blood Negative /uL (Negative) Urine Nitrite Negative (Negative) Urine Bilirubin Negative (Negative) Urine Urobilinogen Normal mg/dL (Negative) Urine Leukocyte Esterase Negative /uL (Negative) Urine RBC <1 /hpf (0 - 3) Urine Microscopic WBC 8 /HPF (0-3) H Urine Squamous Epithelial Cells None seen /hpf (<5) Urine Bacteria None seen /hpf (None Seen) Urine Hyaline Casts Few /lpf (0 - 2) Urine Mucus Few (None Seen) Urine Glucose Trace mg/dL (Normal) Microbiology Microbiology Date/Time Source Procedure Growth Status 10/04/24 10:46 Nose MRSA Screen - Final Complete 10/04/24 01:28 Voided Urine Urine Culture - Preliminary Resulted 10/03/24 14:56 Blood Blood Culture - Preliminary NO GROWTH AFTER 48 HOURS OF INCUBATION. Resulted Labs and/or images reviewed: Labs reviewed by me, Image(s) reviewed by me Assessment/Plan Assessment/Plan Noncardiac chest pain troponin negative x3: Cardiology consult for Dr. Olivera appreciated Hypertension Acute community-acquired Bilateral pneumonia Gram-negative versus Gram-positive: Vancomycin cefepime History of PE : On Xarelto Cristal test negative Flu test negative Uncontrolled diabetes: Insulin sliding scale History of CVA with left hemiplegia Acute on chronic diastolic heart failure echo 60 % June 2024 Possible obstructive sleep apnea Chronic pain syndrome: [place] 10 q.6 hours per patient's request Chronic current marijuana abuse: Counseling Moderate obesity DVT ruled out Depression continue Remeron BuSpar Zyprexa Discharged from this hospital on 09/23/2024 Time spent 70 minutes Plan discussed with: Patient Date of Service: Oct 06, 2024 Billing Provider: JUDI JARAMILLO MD Common Visit Codes: [id number] INP/OBS CARE(HIGH) JUDI JARAMILLO MD Oct 06, 2024 12:06
[2024-10-06] MEDS ORDERED: AUG875T PO (12:09)
[2024-10-06] MEDS ORDERED: HYDR-4798 PO (12:09)
[2024-10-06] MEDS ORDERED: ALBUAER3 IN (12:09)
--- NOTE | 2024-10-06 12:15 | DVHDS2 ---
Discharge Summary Date of Admission Oct 03, 2024 at 22:13 Date of Discharge: Oct 06, 2024 Admitting Diagnosis Chest pain Wounds: None Labs/Diagnostic Data: Laboratory Results Test 10/06/24 05:30 10/05/24 11:33 10/04/24 20:06 10/04/24 05:14 White Blood Count 2.6 10^3/uL (4.4-10.8) Red Blood Count 3.33 10^6/uL (4.5-5.90) Hemoglobin 11.6 g/dL (13.5-17.5) Hematocrit 34.0 % (41.0-53.0) Mean Corpuscular Volume 102.1 fL (80.0-100.0) Mean Corpuscular Hemoglobin 34.8 pg (28.0-32.0) Mean Corpuscular Hemoglobin Concent 34.1 g/dL (32.0-36.0) Red Cell Distribution Width 14.2 % (11.8-14.3) Platelet Count 129 10^3/uL (140-450) Mean Platelet Volume 8.1 fL (6.9-10.8) Neutrophils (%) (Auto) 37.2 % (37.0-80.0) Lymphocytes (%) (Auto) 44.5 % (10.0-50.0) Monocytes (%) (Auto) 12.5 % (0.0-12.0) Eosinophils (%) (Auto) 5.0 % (0.0-7.0) Basophils (%) (Auto) 0.8 % (0.0-2.0) Neutrophils # (Auto) 1.0 10 ^3/uL (1.6-8.6) Lymphocytes # (Auto) 1.2 10 ^3/uL (0.4-5.4) Monocytes # (Auto) 0.3 10 ^3/uL (0-1.3) Eosinophils # (Auto) 0.1 10 ^3/uL (0-0.8) Basophils # (Auto) 0 10 ^3/uL (0-0.2) Nucleated Red Blood Cells 0.1 % Sodium Level 140 mmol/L (136-145) Potassium Level 4.2 mmol/L (3.5-5.1) Chloride Level 108 mmol/L (98-107) Carbon Dioxide Level 26 mmol/L (20-31) Anion Gap 6 (5-15) Blood Urea Nitrogen 11 mg/dL (9-23) Creatinine 0.83 mg/dL (0.700-1.30) Glomerular Filtration Rate Calc 102 mL/min (>90) BUN/Creatinine Ratio 13.3 (10.0-20.0) Serum Glucose 96 mg/dL (74-106) Calcium Level 9.2 mg/dL (8.7-10.4) Total Bilirubin 0.6 mg/dL (0.2-1.0) Aspartate Amino Transferase (AST) 60 U/L (<34) Alanine Aminotransferase (ALT) 47 U/L (7-40) Alkaline Phosphatase 88 U/L (46-116) Total Protein 5.6 g/dL (5.7-8.2) Albumin 3.3 g/dL (3.2-4.8) Plasma/Serum Blood Alcohol < 3.0 mg/dL (<10) Hepatitis B Surface Antigen Negative (Negative) Hepatitis C Antibody Negative (Negative) POC Glucose 91 mg/dl (70-106) Hemoglobin A1c 4.7 % A1C (<5.7) Lactic Acid Level 1.3 mmol/L (0.4-2.0) Magnesium Level 1.7 mg/dL (1.6-2.6) B-Type Natriuretic Peptide 5.08 pg/mL (0-100) Test 10/04/24 01:28 10/04/24 01:15 10/04/24 00:45 Urine Color [place] (Yellow) Urine Clarity Turbid (Clear) Urine pH 5.5 (5.0-9.0) Urine Specific [place] 1.039 (1.001-1.035) Urine Protein 1+ (Negative) Urine Ketones Trace (Negative) Urine Blood Negative /uL (Negative) Urine Nitrite Negative (Negative) Urine Bilirubin Negative (Negative) Urine Urobilinogen Normal mg/dL (Negative) Urine Leukocyte Esterase Negative /uL (Negative) Urine RBC <1 /hpf (0 - 3) Urine Microscopic WBC 8 /HPF (0-3) Urine Squamous Epithelial Cells None seen /hpf (<5) Urine Bacteria None seen /hpf (None Seen) Urine Hyaline Casts Few /lpf (0 - 2) Urine Mucus Few (None Seen) Urine Glucose Trace mg/dL (Normal) Urine Opiates Screen Pos (NEGATIVE) Urine Fentanyl Screen Neg (NEGATIVE) Urine Barbiturates Screen Neg (NEGATIVE) Urine Phencyclidine Screen Neg (NEGATIVE) Urine Amphetamines Screen Neg (NEGATIVE) Urine Benzodiazepines Screen Neg (NEGATIVE) Urine Cocaine Screen Neg (NEGATIVE) Urine Cannabinoids Screen Pos (NEGATIVE) Influenza Type A Antigen Negative (Negative) Influenza Type B Antigen Negative (Negative) SARS-CoV-2 Antigen (Rapid) Negative (NEGATIVE) Erythrocyte Sedimentation Rate 7 mm/hr (0-20) Prothrombin Time 12.8 sec (9.3-11.8) Prothrombin Time INR 1.23 (0.9-1.15) Activated Partial Thromboplast Time 30.9 SEC (24.5-34.5) D-Dimer, Quantitative 0.23 mg/L FEU (0.0-0.49) Troponin I High Sensitivity < 3 ng/L (</=54) C-Reactive Protein High Sensitivity 0.22 mg/dL (<1.0) Other Laboratory Tests 10/06/24 05:30 Brief Hx & Hospital Course: 71 year male with multiple medical problems including diabetes CVA with left hemiplegia congestive heart failure obstructive sleep apnea chronic pain syndrome history of PE on Xarelto hypotension came in complaining of chest pain troponin negative x3 cardi[address]. Olivera felt the patient has noncardiac chest pain possible community-acquired pneumonia treated with vancomycin and cefepime flu test negative Cristal test negative. DVT ruled out Patient has a history of chronic narcotic abuse. At the time of discharge patient is afebrile stable vital signs and being discharged home. He has frequent hospital visits. Patient was educated about compliance with the medications. Prescription transmitted to the pharmacy Consults/Reason for consult Cardiology Dr. Olivera Operations or Procedures None Condition at Discharge: Fair Final Diagnosis/Problems List Noncardiac chest pain troponin negative x3: Cardiology consult for Dr. Olivera appreciated Hypertension Acute community-acquired Bilateral pneumonia Gram-negative versus Gram-positive: Vancomycin cefepime History of PE : On Xarelto Cristal test negative Flu test negative Uncontrolled diabetes: Insulin sliding scale History of CVA with left hemiplegia Acute on chronic diastolic heart failure echo 60 % June 2024 Possible obstructive sleep apnea Chronic pain syndrome: [place] 10 q.6 hours per patient's request Chronic current marijuana abuse: Counseling Moderate obesity DVT ruled out Depression continue Remeron BuSpar Zyprexa Discharge Disposition: Home Discharge Instruct/Medications Diet: Cardiac 2g Na,low cholest Activity: Light activity Follow Up/Referral: Follow up with the primary Dr in one week Resume all previous home meds Medications: Augmentin Marj hSer MDI Transmitted to [facility] pharmacy 39 (Time Taken for discharge summary 39 minutes) Discharge Statement: "Patient was advised to return to the ER or call 911 if any headaches, dizziness, shortness of breath, chest pain, abdominal pain, bleeding, fevers, or worsening of medical condition. Patient was counseled about treatment plan, medications, possible side effects, patientverbalized understanding. All questions were answered to the best of my ability. This discharge took greater then 30 minutes in planning, reviewing documentation, counseling the patient, and discussing with other team members." ASSESSMENT ASSESSMENT Hospital Course Improved Assessment Noncardiac chest pain troponin negative x3: Cardiology consult for Dr. Olivera appreciated Hypertension Acute community-acquired Bilateral pneumonia Gram-negative versus Gram-positive: Vancomycin cefepime History of PE : On Xarelto Cristal test negative Flu test negative Uncontrolled diabetes: Insulin sliding scale History of CVA with left hemiplegia Acute on chronic diastolic heart failure echo 60 % June 2024 Possible obstructive sleep apnea Chronic pain syndrome: [place] 10 q.6 hours per patient's request Chronic current marijuana abuse: Counseling Moderate obesity DVT ruled out Depression continue Remeron BuSpar Zyprexa Date of Service: Oct 06, 2024 Billing Provider: JUDI JARAMILLO MD Common Visit Codes: [id number] DISCH DAY >30min JUDI JARAMILLO MD Oct 06, 2024 12:15
--- NOTE | 2024-10-06 22:28 | DVHPN2 ---
Progress Note - Dictate Date Seen: Oct 06, 2024 Medical Necessity Reason Pt with a Central, PICC or Fol: No Subjective Patient was seen and evaluated in follow up. Blood and urine cultures are negative. Patient denies any cardiac symptoms. Patient is cardiac stable for discharge. Telemetry reviewed. vital signs Vital Sign Date Time Temp Pulse Resp B/P (MAP) Pulse Ox O2 Delivery O2 Flow Rate FiO2 10/06/24 12:45 36.4 10/06/24 10:02 99 Room Air 10/06/24 10:02 0 21 10/06/24 09:00 78 20 105/62 (76) Total Intake and Output 10/05/24 10/05/24 10/06/24 15:00 23:00 07:00 Intake Total 300 ml 600 ml 800 ml Output Total 800 ml Balance 300 ml -200 ml 800 ml medications Current Medications Medications Dose Ordered Sig/Carlos Route Start Time Stop Time Status Last Admin Dose Admin Ipratropium [place] 0.5 mg Q4HPRN PRN NEB 10/04/24 00:45 Cancel Albuterol 2.5 mg Q4HPRN PRN NEB 10/04/24 00:45 Cancel Cefepime HCl 50 ml @ 12.5 mls/hr Q8HR IV 10/04/24 06:00 UNV objective GENERAL: Alert and oriented x 3. No acute distress. Obese. EYES: PERRL, EOMI. Anicteric. HENT: Moist mucous membranes. LUNGS: Clear to auscultation bilaterally. CARDIOVASCULAR: Regular rate and rhythm. ABDOMEN: Soft, nontender and nondistended. EXTREMITIES: No edema. NEUROLOGIC: No focal neurological deficits. SKIN: Warm, dry. laboratory and microbiology Laboratory Tests 10/06/24 05:30 Test 10/06/24 05:30 Range/Units Serum Glucose 96 74-106 mg/dL Problem List Noncardiac chest pain. Hypertension. Acute community-acquired bilateral pneumonia. History of PE. Uncontrolled diabetes. History of CVA with left hemiplegia. Acute on chronic diastolic heart failure echo 60 % June 2024. Chronic pain syndrome. Chronic current marijuana abuse. Moderate obesity. Depression. Assessment/Plan Continued all current supportive medical care. [place] for pain management. Aspirin, Lipitor. IV antibiotics as ordered. Additional plan as per the hospital course. Plan discussed with: Patient BULL CRUZ MD Oct 06, 2024 22:28
== END 2024-10-06 13:46 | disposition home or self-care (01) | DRG 177 ==
LOC: ER 13:25 → OVERFLOW 22:13 → TELE-WESTW 10-04 23:30
PROVIDERS: ADMIT Family Medicine; ATTEND Family Medicine
DX: J15.69 Pneumonia due to other Gram-negative bacteria (principal); I50.33 Acute on chronic diastolic (congestive) heart failure; I69.354 Hemiplegia and hemiparesis following cerebral infarction affecting left non-dominant side; Z68.42 Body mass index [BMI] 45.0-49.9, adult; Z20.822 Contact with and (suspected) exposure to COVID-19; I11.0 Hypertensive heart disease with heart failure; G47.33 Obstructive sleep apnea (adult) (pediatric); G89.4 Chronic pain syndrome; E78.5 Hyperlipidemia, unspecified; J15.9 Unspecified bacterial pneumonia; E11.9 Type 2 diabetes mellitus without complications; F32.A Depression, unspecified; F12.10 Cannabis abuse, uncomplicated; E66.9 Obesity, unspecified; Z86.711 Personal history of pulmonary embolism; Z79.01 Long term (current) use of anticoagulants; Z88.0 Allergy status to penicillin; Z88.1 Allergy status to other antibiotic agents; Z88.3 Allergy status to other anti-infective agents; Z79.899 Other long term (current) drug therapy
CPT/HCPCS: 36415; 71045; 80053; 80307; 80320; 81001; 82962; 83036; 83605; 83735; 83880; 84484; 85025; 85379; 85610; 85652; 85730; 86141; 86803; 87040; 87081; 87086; 87340; 87426; 87804; 93005; 93970; 96365; 96375; G0378; J0692; J2405

== ENCOUNTER 2024-11-03 17:05 | Emergency (ER) | payer MEDICARE, MEDICAID ==
[~2024-11-03] VITALS: Ht 172.7 cm; Wt 113.0 kg
[~2024-11-03 17:05] MED LIST changes: +AUG875T PO
--- NOTE | 2024-11-03 17:17 | ED.PDOC ---
Psychiatric HPI Comments 58 y.o male presents to the ED via EMS for an evaluation of ETOH intoxication. EMS reports patient is renting out an Airbnb room, had paramedics called out earlier today by other residents around the area but at that time, patient was not intoxicated and refused to be sent to the ED. This time around, residents around found patient on the floor in his bedroom and noted he consumed about 1.5 bottles of vodka. Patient presents to the ED intoxicated- Alert and oriented x 1 and had a BG of 99. Unsure of his full medical history- unable to obtain. Chief Complaint: ETOH Time Seen by MD: 17:06 Primary Care Provider: unknown Reviewed Notes: Nurses Notes, Compress Trucker Notes, Medications, Allergies Information Source: Emergency Med Personnel Mode of Arrival: EMS Severity of Pain: None Severity of Mental Status: Moderate Severity of Symptoms: Moderate Timing: Hours Duration: Since onset Ingestion: Intentional Circumstance: Withdrawal Symptoms, Altered Mental Status Associated signs and symptoms: Intoxication, ETOH Past Medical History PAST MEDICAL HISTORY: Unknown, Unobtainable Surgical History: Unobtainable Family History Family History: Reviewed,noncontributory to illness, Unknown Social History Smoker: Unknown, Unobtainable Alcohol: Heavy Drugs: Unknown, Unobtainable Lives In: Home Unable to Obtain due to: Altered Mental Status (patient presents intoxicated- Alert and oriented x 1 ) Physical Exam General Appearance: No Apparent Distress, Obese, Other (Alcohol on the breath) HEENT: Normal ENT Inspection, Pharynx Normal, TMs Normal Neck: Full Range of Motion, Non-Tender, Normal, Normal Inspection Respiratory: Chest Non-Tender, Lungs Clear, No Accessory Muscle Use, No Respiratory Distress, Normal Breath Sounds Cardiovascular: No Edema, No JVD, No Murmur, No Gallop, Normal Peripheral Pulses, Regular Rate/Rhythm Breast Exam: Deferred Gastrointestinal: No Organomegaly, Non Tender, No Pulsatile Mass, Normal Bowel Sounds, Soft Genitalia: Deferred Pelvic: Deferred Rectal: Deferred Extremities: No calf tenderness, Normal capillary refill, Normal inspection, Normal range of motion, Non-tender, No pedal edema Musculoskeletal : Apperance: Normal Neurologic: portal administrator II-XII nml as Tested, Motor Weakness, Normal Affect, Normal Mood, No Sensory Deficits Cerebellar Function: Normal Reflexes: Normal Skin: Dry, Pallor, Warm Lymphatic: No Adenopathy Was a procedure done? Was a procedure done?: No Psych Differential Dx Intoxication Differential Dx: Alcohol Withdraw Syndrome, Dehydration, Electrolyte Imbalance, Intoxication, Thiamine Deficiency X-Ray, Labs, Meds, VS Vital Signs Date Time Temp Pulse Resp B/P (MAP) Pulse Ox O2 Delivery O2 Flow Rate FiO2 11/03/24 17:33 97.8 86 16 126/85 (99) 99 97.8 11/03/24 17:12 97.8 86 16 136/85 (102) 99 97.8 Lab Test 11/03/24 17:30 Range/Units Plasma/Serum Blood Alcohol 420.9 *H <10 mg/dL Current Medications Medications (Trade) Dose Ordered Sig/Carlos Route Start Time Stop Time Status Last Admin Sodium Chloride 1,000 ml @ 1,000 mls/hr Q1H ONCE IVB 11/03/24 17:15 11/03/24 18:14 DC 11/03/24 17:31 The patient had an IV Hep-Lock was given a 1 L bolus of normal saline The patient's alcohol level is 420.9 At this time, the patient is being signed out to At this time, the patient understands and agrees with the management The patient was a very obnoxious in the emergency department's so we had to take him outside and tried to settle him down. The patient was then transferred from a machine hamper maker gurney into a wheelchair An IV Hep-Lock continued to be running and the patient was then placed in the treatment area and eventually in the waiting room The patient was just dropping the staff as well as cursing at the staff. The patient's seemed to be causing danger to the other patients so that is why we went ahead and took the patient outside to asked him to be more cooperative The patient was eventually brought back into the emergency department's and was never left outside by himself The patient will be signed out for continued monitoring until the patient's so her The patient is not given a urine at this time Images Reviewed?: Images reviewed and evaluated by me Time of 1ST Reevaluation: 17:13 Reevaluation 1ST: Unchanged Patient Education/Counseling: Other (patient presents intoxicated- Alert and oriented x 1 ) Family Education/Counseling: No Family Present Departure 1 Departure Time of Disposition: 21:00 Impression: Primary Impression: Alcohol intoxication Qualified Codes: F10.920 - Alcohol use, unspecified with intoxication, uncomplicated Disposition: 30 STILL A PATIENT Condition: Fair Critical Care Note Critical Care Time?: No Stability Stability form required: No I personally scribed for NATHAN HERNANDEZ MD ([email or web address]) on 11/03/24 at 17:17. Electronically submitted by Marleny Barnett ([facility]). NATHAN HERNANDEZ MD Nov 03, 2024 17:17
[2024-11-03] MEDS: SODIUM CHLORIDE 0.9% 1,000 ML IVB ONE (17:31)
[2024-11-03 17:33] VITALS: BP 126/85; PULSE 86; RESP 16; TEMP 97.8; O2SAT 99
== END 2024-11-03 23:35 | disposition left against medical advice (07) ==
LOC: ER 17:05 → EDUNIT# 17:05 → EDBD 17:05 → ER 23:35
DX: F10.129 Alcohol abuse with intoxication, unspecified (principal); Z79.899 Other long term (current) drug therapy; Y90.8 Blood alcohol level of 240 mg/100 ml or more
CPT/HCPCS: 36415; 80320; 82947; 96360; 99283; J7030